=== PATIENT | male | born 1940 | race Caucasian/White ===

== ENCOUNTER 2024-07-23 10:50 | Outpatient (CLI) | payer MEDICARE, SELFPAY ==
[2024-07-23 12:14] LABS: Potassium 5.1 mmol/L (3.4-5.0)
== END 2024-07-23 10:51 | disposition home or self-care (01) ==
PROVIDERS: PCP Internal Medicine; Visit Provider Internal Medicine
DX: E87.5 Hyperkalemia (principal)
CPT/HCPCS: 36415; 84132

== ENCOUNTER 2024-09-19 13:28 | Outpatient (CLI) | payer MEDICARE, SELFPAY ==
--- NOTE | ~2024-09-19 | XR_ITS ---
AP and lateral views of the left hip Clinical history: Pain Findings: No acute fracture or dislocation is seen. Osseous alignment is anatomic. Left hip joint is intact. Soft tissues are unremarkable. Impression: No significant abnormality is seen. Reviewed, dictated and finalized at location M. CARE AIDE TEACHER Impression: No significant abnormality is seen.
--- NOTE | ~2024-09-19 | XR_ITS ---
HISTORY: UNSPECIFIED FALL X YESTERDAY , PAIN COMPARISON: None TECHNIQUE: 2 views of the right elbow were performed. FINDINGS: No acute fracture is identified. No elevation of the anterior or posterior fat pads are identified to suggest a supracondylar fracture . Overlying soft tissues are unremarkable. Bone mineralization is age-appropriate. IMPRESSION: No acute fracture or dislocation, as detailed above. Reviewed, dictated and finalized at location A. UCE FIELD MERCHANDISER
--- NOTE | ~2024-09-19 | XR_ITS ---
HISTORY: UNSPECIFIED FALL YESTERDAY PAIN COMPARISON: None TECHNIQUE: 3 views of the right shoulder were performed FINDINGS: No acute fracture. The glenohumeral and acromioclavicular joint space is maintained The visualized portion of the adjacent right lung is clear. The humeral head is well seated within the glenoid fossa. IMPRESSION: No acute fracture or anterior dislocation. Reviewed, dictated and finalized at location A. INSPECTOR
--- OUTSIDE RECORDS SUMMARY | 2024-09-19 14:30 | XMS_ITS | Data Portability ---
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 he uses it sparingly finishing the Augmentin his lungs are clear he is feeling better he will see me at his regularly scheduled appointment Not available 01/26/2023 12:53:27 04/25/2023 04/25/2023 Continue current therapy diagnosis discussed he probably is going to be medical management for his back he will call pain management and hopefully they will be amenable to just given him pain medication as opposed to procedural based therapy see me in 4 months Not available 05/02/2023 07:32:44 08/18/2023 08/18/2023 Increase the Cymbalta to 60 mg blood work been ordered other medicines will continue follow-up in 4 months. [email or web address] Not available 08/18/2023 16:44:50 Plan of Treatment Reminders Order Date Submit Date Provider Last Modified By Organization Details Last Modified Time Details Appointments None recorded. Lab CMP, serum or plasma 2022 023 [email or web address] [facility] (Lab), [address] [place], [address], 05/15/202 3 14:24:23 lipid panel, serum [address] (Lab), [address] [place], [address], 3 14:24:23 glycohemogl obin, total, blood 2022 023 [facility] (Lab), [address] [place], [address], 3 15:52:46 CMP, serum or plasma 2023 024 [facility] (Lab), [address] [place], [address], 4 16:34:08 lipid panel, serum 2023 024 [facility] (Lab), [address] [place], [address], 4 16:34:12 CBC w/ auto diff 2023 024 [facility] (Lab), [address] [place], [address], 4 15:52:48 glycohemogl obin, total, blood 2023 024 [facility] (Lab), [address] [place], [address], 4 02:56:28 Referral None recorded. Procedures None recorded. Surgeries None recorded. Imaging None recorded. Medication Orders lisinopril 10 mg tablet [address] [facility], [address] [facility], [place], [address], 4 13:10:16 duloxetine 60 mg capsule,del ayed release [address] [facility], [address] [place] [address], [address], 4 13:10:16 carvedilol 3.125 mg tablet [address] [facility], [address] [place] [address], [address], 4 13:10:16 glipizide 10 mg tablet [address] [facility], [address] [place] [address], [address], 4 13:10:16 Januvia 100 mg tablet [address] [facility], [address] [place] [address], [address], 4 13:10:16 lovastatin 40 mg tablet [address] [facility], [address] [place] [address], [address], 4 13:10:16 metformin 1,000 mg tablet [address] [facility], [address] [place] [address], [address], 4 13:10:16 Patient TargetsNo targets recorded. Patient InstructionsNo instructions recorded. Reason for Referral None Reported. Results Created Date Observation Date Name Description Value Unit Range Abnormal Flag Note LastModifiedBy Organization Detail LastModifiedTime 12/28/1912/27/2022 COMPR EHENS YEYO METAB OLIC PANEL sodium 141 mmol/ L 137-14 5 Not Available [facility] (Lab) [address] [place], [address], 12/27/2022 14:01:05 12/28/19 23 12/27/2022 COMPR EHENS YEYO METAB OLIC PANEL potassium 5.6 mmol/ L 3.5-5. 1 high Not Available [facility] (Lab) [address] [place], [address], 12/27/2022 14:01:05 12/28/19 23 12/27/2022 COMPR EHENS YEYO METAB OLIC PANEL chloride 105 mmol/ L 98-107 Not Available [facility] (Lab) [address] [place], [address], 12/27/2022 14:01:05 12/28/19 23 12/27/2022 COMPR EHENS YEYO METAB OLIC PANEL carbon dioxide 27 mmol/ L 22-30 Not Available [facility] (Lab) [address] [place], [address], 12/27/2022 14:01:05 12/28/19 23 12/27/2022 COMPR EHENS YEYO METAB OLIC PANEL anion gap 14.6 mmol/ L 14-22 Not Available [facility] (Lab) [address] [place], [address], 12/27/2022 14:01:05 12/28/19 23 12/27/2022 COMPR EHENS YEYO METAB OLIC PANEL glucose 67 mg/dL 70-99 low Not Available [facility] (Lab) [address] [place], [address], 12/27/2022 14:01:05 12/28/19 23 12/27/2022 COMPR EHENS YEYO METAB OLIC PANEL BUN 30 mg/dL 8-19 high Not Available [facility] (Lab) [address] [place], [address], 12/27/2022 14:01:05 12/28/19 23 12/27/2022 COMPR EHENS YEYO METAB OLIC PANEL creatinine 1.73 mg/dL 0.66-1 .25 high Not Available [facility] (Lab) [address] [place], [address], 12/27/2022 14:01:05 12/28/19 23 12/27/2022 COMPR EHENS YEYO METAB OLIC PANEL GFR 38 Refer ence Range : [place] ge GFR Healt hy Adult : >60 mL/mi n/1.7 3 m2 Chron ic Kidne y Disea se: 15-60 mL/mi n/1.7 3 m2 Kidne y Failu re: <15/m L/min /1.73 m2 www.n iddk. nih.g ov The MDRD study equat ion has not been valid ated in child federico <18 years of age; pregn ant women ; the elder ly >85 years of age; or in some racia l or ethni c subgr oups, such as ky nics. Outsi de the valid ated manuel eters , estim ated GFR is less accur ate, requi ring clini joann judgm ent on a case- by-ca se basis . Clini joann inter preta tion for other races and ages must be made by the clini gentry. The MDRD study equat ion has not been valid ated for the evalu ation of serum creat inine relat ed to nutri romeo l statu s or medic ation usage . For perso ns <18 years of age, a pedia tric GFR calcu lator is avail able on the [facility] websi te: https ://parisa w.[email or web address] guillaume.o rg/pr ofess ional s/kdo qi/gf r_cal culat or Not Available [facility] (Lab) [address] [place], [address], 12/27/2022 14:01:05 12/28/19 23 12/27/2022 COMPR EHENS YEYO METAB OLIC PANEL alkaline phosphatase 83 U/L 38-126 Not Available [facility] (Lab) [address] [place], [address], 12/27/2022 14:01:05 12/28/19 23 12/27/2022 COMPR EHENS YEYO METAB OLIC PANEL alanine aminotransfe rase 16 U/L 0-50 Not Available [facility] (Lab) [address] [place], [address], 12/27/2022 14:01:05 12/28/19 23 12/27/2022 COMPR EHENS YEYO METAB OLIC PANEL aspartate aminotransfe rase 19 U/L 15-46 Not Available [facility] (Lab) [address] [place], [address], 12/27/2022 14:01:05 12/28/19 23 12/27/2022 COMPR EHENS YEYO METAB OLIC PANEL bilirubin, total 0.40 mg/dL 0.20-1 .30 Not Available [facility] (Lab) [address] [place], [address], 12/27/2022 14:01:05 12/28/19 23 12/27/2022 COMPR EHENS YEYO METAB OLIC PANEL calcium 10.8 mg/dL 8.4-10 .2 high Not Available [facility] (Lab) [address] [place], [address], 12/27/2022 14:01:05 12/28/19 23 12/27/2022 COMPR EHENS YEYO METAB OLIC PANEL total protein 6.7 g/dL 6.3-8. 2 Not Available [facility] (Lab) [address] [place], [address], 12/27/2022 14:01:05 12/28/19 23 12/27/2022 COMPR EHENS YEYO METAB OLIC PANEL albumin 3.9 g/dL 3.0-4. 4 Not Available [facility] (Lab) [address] [place], [address], 12/27/2022 14:01:05 12/28/19 23 12/27/2022 COMPR EHENS YEYO METAB OLIC PANEL globulin 2.8 g/dL 2.6-4. 2 Not Available [facility] (Lab) [address] [place], [address], 12/27/2022 14:01:05 12/28/1912/27/2022 COMPR EHENS YEYO METAB OLIC PANEL A/G ratio 1.4 ratio 1.0-2. 0 Not Available [facility] (Lab) [address] [place], [address], 12/27/2022 14:01:05 12/28/1912/27/2022 LIPID PANEL cholesterol 182 mg/dL 140-19 9 NIH REJI NSUS RECOM MENDA TION FOR BETZAIDA STERO L: ADULT CHILD LOW RISK: <200 <170 BORDE RLINE : <200- 239 ----- HIGH RISK: >240 >200 Not Available [facility] (Lab) [address] [place], [address], 12/27/2022 14:01:12/28/1912/27/2022 LIPID PANEL triglyceride s 279 mg/dL 0-150 high NIH REJI NSUS REPOR T RECOM MENDA TION FOR TRIGL YCERI MARKUS: ADULT CHILD LOW RISK: <150 ----- BODER LINE: 150-1 99 ----- HIGH RISK: >200 ----- Not Available [facility] (Lab) [address] [place], [address], 12/27/2022 14:01:12/28/1912/27/2022 LIPID PANEL HDL cholesterol 36 mg/dL 40- low Not Available [facility] (Lab) [address] [place], [address], 12/27/2022 14:01:12/28/1912/27/2022 LIPID PANEL LDL cholesterol, calculated 90 mg/dL 0-130 NIH REJI NSUS REPOR T RECOM MENDA TIONS FOR LDL: ADULT CHILD LOW RISK <130 <110 (OPTI MAL LDL) <100 ----- BORDE RLINE : 130-1 59 ----- HIGH RISK: >160 >130 A TRIGL YCERI DE RESUL T >400 INVAL IDATE S THE CALCU LATIO N FOR LDL FRACT IONAT ION - THE LDL RESUL T WILL NOT BE REPOR ESTEE. Not Available [facility] (Lab) [address] [place], [address], 12/27/2022 14:01:10 12/28/19 23 12/27/2022 HEMOG LOBIN A1C HA1C 7.4 % 4.0-6. 0 high Diabe severo Scree shivam Crite jarad: <5.7% Consi stent with absen ce of diabe severo 5.7-6 .4% Consi stent with incre ased risk for diabe severo (pred iabet es) >OR=6 .5% Consi stent with diabe severo REFER ENCE: Diabe severo Care 2016, 39(Johnson ppl.1 ):s13 -s22 Not Available [facility] (Lab) [address] [place], [address], 12/27/2022 15:52:46 08/18/19 24 08/18/2023 CBC/C OMPLE TE BLD COUNT W/DIF F white blood cells 10.1 x10'3 /uL 4.2-10 .8 Not Available [facility] (Lab) [address] [place], [address], 08/18/2023 15:52:48 08/18/19 24 08/18/2023 CBC/C OMPLE TE BLD COUNT W/DIF F red blood cells 4.31 x10'6 /uL 4.10-5 .80 Not Available [facility] (Lab) [address] [place], [address], 08/18/2023 15:52:48 08/18/19 24 08/18/2023 CBC/C OMPLE TE BLD COUNT W/DIF F hemoglobin 12.4 g/dL 13.2-1 7.0 low Not Available [facility] (Lab) [address] [place], [address], 08/18/2023 15:52:48 08/18/19 24 08/18/2023 CBC/C OMPLE TE BLD COUNT W/DIF F hematocrit 39.0 % 39.3-5 0.0 low Not Available [facility] (Lab) [address] [place], [address], 08/18/2023 15:52:48 08/18/19 24 08/18/2023 CBC/C OMPLE TE BLD COUNT W/DIF F mean red cell volume 90.5 fL 80.0-9 7.0 Not Available [facility] (Lab) [address] [place], [address], 08/18/2023 15:52:48 08/18/19 24 08/18/2023 CBC/C OMPLE TE BLD COUNT W/DIF F mean red cell hemoglobin 28.8 pg 27.0-3 3.0 Not Available [facility] (Lab) [address] [place], [address], 08/18/2023 15:52:48 08/18/19 24 08/18/2023 CBC/C OMPLE TE BLD COUNT W/DIF F mean RBC HGB concentratio n 31.8 g/dL 31.0-3 6.0 Not Available [facility] (Lab) [address] [place], [address], 08/18/2023 15:52:48 08/18/19 24 08/18/2023 CBC/C OMPLE TE BLD COUNT W/DIF F red cell distribution width 13.5 % 11.8-1 5.5 Not Available [facility] (Lab) [address] [place], [address], 08/18/2023 15:52:48 08/18/19 24 08/18/2023 CBC/C OMPLE TE BLD COUNT W/DIF F platelets 260 x10'3 /uL 150-40 0 Not Available [facility] (Lab) [address] [place], [address], 08/18/2023 15:52:48 08/18/19 24 08/18/2023 CBC/C OMPLE TE BLD COUNT W/DIF F mean platelet volume 12.4 fL 9.0-12 .4 Not Available [facility] (Lab) [address] [facility] [place], [address], 08/18/2023 15:52:48 08/18/19 24 08/18/2023 CBC/C OMPLE TE BLD COUNT W/DIF F neutrophils 69.5 % 39.0-7 2.0 Not Available [facility] (Lab) [address] [facility] [place], [address], 08/18/2023 15:52:48 08/18/19 24 08/18/2023 CBC/C OMPLE TE BLD COUNT W/DIF F lymphocytes 20.3 % 16.0-4 7.0 Not Available [facility] (Lab) [address] [facility] [place], [address], 08/18/2023 15:52:48 08/18/19 24 08/18/2023 CBC/C OMPLE TE BLD COUNT W/DIF F monocytes 6.8 % 5.0-12 .0 Not Available [facility] (Lab) [address] [place], [address], 08/18/2023 15:52:48 08/18/19 24 08/18/2023 CBC/C OMPLE TE BLD COUNT W/DIF F eosinophils 2.2 % 1.0-7. 0 Not Available [facility] (Lab) [address] [place], [address], 08/18/2023 15:52:48 08/18/19 24 08/18/2023 CBC/C OMPLE TE BLD COUNT W/DIF F basophils 0.8 % 0.0-2. 0 Not Available [facility] (Lab) [address] [place], [address], 08/18/2023 15:52:48 08/18/19 24 08/18/2023 CBC/C OMPLE TE BLD COUNT W/DIF F immature granulocytes 0.4 % 0.00-0 .50 Not Available [facility] (Lab) [address] [place], [address], 08/18/2023 15:52:48 08/18/19 24 08/18/2023 CBC/C OMPLE TE BLD COUNT W/DIF F neutrophils, absolute count 7.01 x10'3 /uL 1.5-8. 0 Not Available [facility] (Lab) [address] [place], [address], 08/18/2023 15:52:48 08/18/19 24 08/18/2023 CBC/C OMPLE TE BLD COUNT W/DIF F lymphocytes, absolute count 2.05 x10'3 /uL 1.07-3 .43 Not Available [facility] (Lab) [address] [place], [address], 08/18/2023 15:52:48 08/18/19 24 08/18/2023 CBC/C OMPLE TE BLD COUNT W/DIF F monocytes, absolute count 0.69 x10'3 /uL 0.29-0 .99 Not Available [facility] (Lab) [address] [place], [address], 08/18/2023 15:52:48 08/18/19 24 08/18/2023 CBC/C OMPLE TE BLD COUNT W/DIF F eosinophils, absolute count 0.22 x10'3 /uL 0.02-0 .53 Not Available [facility] (Lab) [address] [place], [address], 08/18/2023 15:52:48 08/18/19 24 08/18/2023 CBC/C OMPLE TE BLD COUNT W/DIF F basophils, absolute count 0.08 x10'3 /uL 0.01-0 .08 Not Available [facility] (Lab) [address] [place], [address], 08/18/2023 15:52:48 08/18/19 24 08/18/2023 CBC/C OMPLE TE BLD COUNT W/DIF F immature granulocytes ,absolute 0.04 x10'3 /uL 0.00-0 .05 Not Available [facility] (Lab) [address] [place], [address], 08/18/2023 15:52:48 08/18/19 24 08/18/2023 CBC/C OMPLE TE BLD COUNT W/DIF F nucleated red blood cells 0.0 % -0 Not Available [facility] (Lab) [address] [place], [address], 08/18/2023 15:52:48 08/18/19 24 08/18/2023 CBC/C OMPLE TE BLD COUNT W/DIF F NRBC# 0.00 x10'3 /uL Not Available [facility] (Lab) [address] [place], [address], 08/18/2023 15:52:48 08/18/19 24 08/18/2023 COMPR EHENS YEYO METAB OLIC PANEL sodium 140 mmol/ L 137-14 5 Not Available [facility] (Lab) [address] [place], [address], 08/18/2023 16:34:08 08/18/19 24 08/18/2023 COMPR EHENS YEYO METAB OLIC PANEL potassium 5.5 mmol/ L 3.5-5. 1 high Not Available [facility] (Lab) [address] [place], [address], 08/18/2023 16:34:08 08/18/19 24 08/18/2023 COMPR EHENS YEYO METAB OLIC PANEL chloride 103 mmol/ L 98-107 Not Available [facility] (Lab) [address] [place], [address], 08/18/2023 16:34:08 08/18/19 24 08/18/2023 COMPR EHENS YEYO METAB OLIC PANEL carbon dioxide 29 mmol/ L 22-30 Not Available [facility] (Lab) [address] [place], [address], 08/18/2023 16:34:08 08/18/19 24 08/18/2023 COMPR EHENS YEYO METAB OLIC PANEL anion gap 13.5 mmol/ L 14-22 low Not Available [facility] (Lab) [address] [place], [address], 08/18/2023 16:34:08 08/18/19 24 08/18/2023 COMPR EHENS YEYO METAB OLIC PANEL glucose 74 mg/dL 70-99 Not Available [facility] (Lab) [address] [place], [address], 08/18/2023 16:34:08 08/18/19 24 08/18/2023 COMPR EHENS YEYO METAB OLIC PANEL BUN 30 mg/dL 8-19 high Not Available [facility] (Lab) [address] [place], [address], 08/18/2023 16:34:08 08/18/19 24 08/18/2023 COMPR EHENS YEYO METAB OLIC PANEL creatinine 1.65 mg/dL 0.66-1 .25 high Not Available [facility] (Lab) [address] [place], [address], 08/18/2023 16:34:08 08/18/19 24 08/18/2023 COMPR EHENS YEYO METAB OLIC PANEL GFR 40 Refer ence Range : [place] ge GFR Healt hy Adult : >60 mL/mi n/1.7 3 m2 Chron ic Kidne y Disea se: 15-60 mL/mi n/1.7 3 m2 Kidne y Failu re: <15/m L/min /1.73 m2 www.n iddk. nih.g ov The MDRD study equat ion has not been valid ated in child federico <18 years of age; pregn ant women ; the elder ly >85 years of age; or in some racia l or ethni c subgr oups, such as Hispa nics. Outsi de the valid ated manuel eters , estim ated GFR is less accur ate, requi ring clini joann judgm ent on a case- by-ca se basis . Clini joann inter preta tion for other races and ages must be made by the clini gentry. The MDRD study equat ion has not been valid ated for the evalu ation of serum creat inine relat ed to nutri romeo l statu s or medic ation usage . For perso ns <18 years of age, a pedia tric GFR calcu lator is avail able on the [facility] websi te: https ://parisa [email or web address] guillaume.o rg/pr ofess ional s/kdo qi/gf r_cal culat or Not Available [facility] (Lab) [address] [place], [address], 08/18/2023 16:34:08 08/18/19 24 08/18/2023 COMPR EHENS YEYO METAB OLIC PANEL alkaline phosphatase 97 U/L 38-126 Not Available [facility] (Lab) [address] [place], [address], 08/18/2023 16:34:08 08/18/19 24 08/18/2023 COMPR EHENS YEYO METAB OLIC PANEL alanine aminotransfe rase 25 U/L 0-50 Not Available [facility] (Lab) [address] [place], [address], 08/18/2023 16:34:08 08/18/19 24 08/18/2023 COMPR EHENS YEYO METAB OLIC PANEL aspartate aminotransfe rase 25 U/L 15-46 Not Available [facility] (Lab) [address] [place], [address], 08/18/2023 16:34:08 08/18/19 24 08/18/2023 COMPR EHENS YEYO METAB OLIC PANEL bilirubin, total 0.40 mg/dL 0.20-1 .30 Not Available [facility] (Lab) [address] [place], [address], 08/18/2023 16:34:08 08/18/19 24 08/18/2023 COMPR EHENS YEYO METAB OLIC PANEL calcium 11.1 mg/dL 8.4-10 .2 high Not Available [facility] (Lab) [address] [place], [address], 08/18/2023 16:34:08 08/18/19 24 08/18/2023 COMPR EHENS YEYO METAB OLIC PANEL total protein 7.0 g/dL 6.3-8. 2 Not Available [facility] (Lab) [address] [place], [address], 08/18/2023 16:34:08 08/18/19 24 08/18/2023 COMPR EHENS YEYO METAB OLIC PANEL albumin 4.1 g/dL 3.0-4. 4 Not Available [facility] (Lab) [address] [place], [address], 08/18/2023 16:34:08 08/18/19 24 08/18/2023 COMPR EHENS YEYO METAB OLIC PANEL globulin 2.9 g/dL 2.6-4. 2 Not Available [facility] (Lab) [address] [place], [address], 08/18/2023 16:34:08 08/18/19 24 08/18/2023 COMPR EHENS YEYO METAB OLIC PANEL A/G ratio 1.4 ratio 1.0-2. 0 Not Available [facility] (Lab) [address] [place], [address], 08/18/2023 16:34:08 08/18/19 24 08/18/2023 LIPID PANEL cholesterol 256 mg/dL 140-19 9 high NIH REJI NSUS RECOM MENDA TION FOR BETZAIDA STERO L: ADULT CHILD LOW RISK: <200 <170 BORDE RLINE : <200- 239 ----- HIGH RISK: >240 >200 Not Available [facility] (Lab) [address] [place], [address], 08/18/2023 16:34:11 08/18/19 24 08/18/2023 LIPID PANEL triglyceride s 421 mg/dL 0-150 high NIH REJI NSUS REPOR T RECOM MENDA TION FOR TRIGL YCERI MARKUS: ADULT CHILD LOW RISK: <150 ----- BODER LINE: 150-1 99 ----- HIGH RISK: >200 ----- Not Available [facility] (Lab) [address] [place], [address], 08/18/2023 16:34:11 08/18/19 24 08/18/2023 LIPID PANEL HDL cholesterol 35 mg/dL 40- low Not Available [facility] (Lab) [address] [place], [address], 08/18/2023 16:34:11 08/18/19 24 08/19/2023 HEMOG LOBIN A1C HA1C 7.7 % 4.0-6. 0 high Diabe severo Scree shivma Crite jarad: <5.7% Consi stent with absen ce of diabe severo 5.7-6 .4% Consi stent with incre ased risk for diabe severo (pred iabet es) >OR=6 .5% Consi stent with diabe severo REFER ENCE: Diabe severo Care 2016, 39(Johnson ppl.1 ):s13 -s22 Not Available [facility] (Lab) [address] [place], [address], 08/19/2023 02:56:28 08/24/19 24 08/24/2023 PARAT HY.HO RM(PT H)INT ACT-W /O CA intact parathyroid hormone 141.9 pg/mL 24.0-7 8.0 high Pleas e note new refer ence range effec tive 09/10 . Not Available [facility] (Lab) [address] [place], [address], 08/24/2023 16:30:52 08/24/19 24 08/25/2023 IMMUN OFIXA TION, SERUM immunofixati on result, serum Commen t No monoc lonal ity detec estee. Not Available [facility] (Lab) [address] [place], [address], 08/25/2023 16:12:48 08/24/19 24 08/25/2023 IMMUN OFIXA TION, SERUM immunoglobul in g, qn, serum 866 mg/dL 603-16 13 Not Available [facility] (Lab) [address] [place], [address], 08/25/2023 16:12:48 08/24/19 24 08/25/2023 IMMUN OFIXA TION, SERUM immunoglobul in M, qn, serum 41 mg/dL 15-143 [place]fo [place]med at: [place] [address] Lab Direc tor: Marco Antonio loya PhD, Phone : [phone] Not Available [facility] (Lab) [address] [place], [address], 08/25/2023 16:12:48 08/24/19 24 08/25/2023 IMMUN OFIXA TION, SERUM immunoglobul in A, qn, serum 168 mg/dL 61-437 Not Available [facility] (Lab) [address] [place], [address], 08/25/2023 16:12:48 08/24/19 24 08/26/2023 IMMUN OFIXA TION, URINE immunofixati on, urine COMMEN T No monoc lonal ity detec estee. Perfo rmed at: - [facility] [address] [place] [address], [place] [address] Lab Direc tor: Marco Antonio loya PhD, Phone : [phone] Not Available [facility] (Lab) [address] [place], [address], 08/26/2023 12:12:24 08/24/19 24 08/26/2023 PROT. FRANK CARLINRAND OM UR protein,tota l,urine 27.4 mg/dL not estab. Not Available [facility] (Lab) [address] [place], [address], 08/26/2023 12:12:27 08/24/19 24 08/26/2023 PROT. FRANK CARLINRAND OM UR albumin, U 39.8 % Not Available [facility] (Lab) [address] [place], [address], 08/26/2023 12:12:27 08/24/19 24 08/26/2023 PROT. FRANK CARLINRAND OM UR ogytd-2-cife ulin, U 1.9 % Not Available [facility] (Lab) [address] [place], [address], 08/26/2023 12:12:27 08/24/19 24 08/26/2023 PROT. FRANK CARLIN ,RAND OM UR prrmw-7-sxvx ulin, U 16.7 % Not Available [facility] (Lab) [address] [place], [address], 08/26/2023 12:12:27 08/24/19 24 08/26/2023 PROT. FRANK CARLINRAND OM UR beta globulin, U 20.2 % Not Available [facility] (Lab) [address] [place], [address], 08/26/2023 12:12:27 08/24/19 24 08/26/2023 PROT. FRANK CARLIN [facility] UR gamma globulin, U 21.4 % Not Available [facility] (Lab) [address] [place], [address], 08/26/2023 12:12:27 08/24/19 24 08/26/2023 [facility] UR M-spike, % Not Observ ed % not observ ed Not Available [facility] (Lab) [address] [place], [address], 08/26/2023 12:12:27 08/24/19 24 08/26/2023 [facility] UR please note: Milad Everett Prote in [facility] scan will follo w via compu ter, mail, or couri mariaelena chatterjee. Not Available [facility] (Lab) [address] [place], [address], 08/26/2023 12:12:27 08/24/19 24 08/26/2023 PROT. FRANK [facility] UR pdf . Perfo rmed at: [place] [id number] Lab Direc tor: Marco Antonio loya PhD, Phone : [phone] Not Available [facility] (Lab) [address] [place], [address], 08/26/2023 12:12:27 08/24/19 24 09/01/2023 PROTE IN ELECT RO.,S protein, total 6.5 g/dL 6.0-8. 5 Not Available [facility] (Lab) [address] [place], [address], 09/01/2023 15:10:03 08/24/19 24 09/01/2023 PROTE IN ELECT RO.,S albumin 3.4 g/dL 2.9-4. 4 Not Available [facility] (Lab) [address] [place], [address], 09/01/2023 15:10:03 08/24/19 24 09/01/2023 PROTE IN ELECT RO.,S bjkyj-6-qpci ulin 0.3 g/dL 0.0-0. 4 Not Available [facility] (Lab) [address] [place], [address], 09/01/2023 15:10:03 08/24/19 24 09/01/2023 PROTE IN ELECT RO.,S weumh-3-eiqn ulin 0.9 g/dL 0.4-1. 0 Not Available [facility] (Lab) [address] [place], [address], 09/01/2023 15:10:03 08/24/19 24 09/01/2023 PROTE IN ELECT RO.,S beta globulin 1.1 g/dL 0.7-1. 3 Not Available [facility] (Lab) [address] [place], [address], 09/01/2023 15:10:03 08/24/19 24 09/01/2023 PROTE IN ELECT RO.,S gamma globulin 0.9 g/dL 0.4-1. 8 Not Available [facility] (Lab) [address] [place], [address], 09/01/2023 15:10:03 08/24/19 24 09/01/2023 PROTE IN ELECT RO.,S M-spike Not Observ ed g/dL not observ ed Not Available [facility] (Lab) [address] [place], [address], 09/01/2023 15:10:03 08/24/19 24 09/01/2023 PROTE IN ELECT RO.,S globulin, total 3.1 g/dL 2.2-3. 9 Not Available [facility] (Lab) [address] [place], [address], 09/01/2023 15:10:03 08/24/19 24 09/01/2023 PROTE IN ELECT RO.,S A/G ratio 1.1 0.7-1. 7 Not Available [facility] (Lab) [address] [place], [address], 09/01/2023 15:10:03 08/24/19 24 09/01/2023 PROTE IN ELECT RO.,S please note: Commen t . [facility] follo w via compu ter, mail, or couri er rosendo chatterjee. Not Available [facility] (Lab) [address] [place], [address], 09/01/2023 15:10:03 08/24/19 24 09/01/2023 PROTE IN ELECT RO.,S pdf . Perfo rmed at: [place] [address] 1267 Lab Direc tor: Marco Antonio loya PhD, Phone : [phone] Not Available [facility] (Lab) [address] [place], [address], 09/01/2023 15:10:03 08/26/19 24 08/26/2023 CALCI UM 24 HR URINE ur calcm 12.6 mg/dL REFER ENCE RANGE NOT ESTAB LISHE D FOR RANDO M URINE CALCI UM Not Available [facility] (Lab) [address] [place], [address], 08/26/2023 15:13:47 08/26/19 24 08/26/2023 CALCI UM 24 HR URINE calc 24H 189 mg/24 HR 100-30 0 Not Available [facility] (Lab) [address] [place], [address], 08/26/2023 15:13:47 08/26/19 24 08/26/2023 CALCI UM 24 HR URINE tot vol 1500 mL 600-20 00 Not Available [facility] (Lab) [address] [place], [address], 08/26/2023 15:13:47 08/31/19 24 08/31/2023 IONIZ ED CALCI UM ionized calcium 5.6 mg/dL 4.5-5. 3 high Not Available [facility] (Lab) [address] [place], [address], 08/31/2023 10:55:56 09/12/19 24 09/12/2023 NM, parat hyroi d scan [facility] [address] [facility] [place] [address] [phone] Patien t Name: MARLO LEMOS Access ion #: [id number] Sex: M : 1939 7 Dictat ed By: Rosaline Meredith Attend ing Physic lauri: LYNN ARZATE Orderi ng Physic lauri: LYNN ARZATE Exam Date: 2023 08:55 AM Exam Name: NM PARA PLAN THYROI D IMAGIN G Admitt ing Diagno sis(es ): Proced ure: NM PARA PLAN THYROI D IMAGIN G Exam Date: 024 8:55 AM . Clinic al Histor y: Hyperc alcemi a. Compar olamide Study: None. Nuclea r Medici ne Parath yroid Scan. Techni que: Follow ing the intrav enous inject ion of 22 mCi of the Techne tium 99m Sestam ibi, images of the neck were obtain ed in multip le projec tions , immedi ately and after a two hour delay. Findin gs: There is the expect ed physio logic distri bution of radiop harmac eutica l. There is no abnorm al focus of increa sed uptake to sugges t a parath yroid adenom a in the neck. Impres jose angel: No scinti graphi c eviden ce for parath yroid adenom a in the neck. Electr onical ly Signed by: Rosaline Meredith at 2023 11:57: 19 AM Page 1 [facility] (Imaging) [address] [facility], [place], [address], 09/13/2023 09:22:27 04/06/20 24 04/06/2024 MRI, cervi joann spine , w/o contr ast [facility] [address] [facility] [address], [place] [address] Patien t Name: MARLO LEMOS Access ion #: [id number] Sex: M : 1939 2 Dictat ed By: Rigo Toth ms Attend ing Physic lauri: LYNN ARZATE ng Physic lauri: LYNN ARZATE Exam Date: 2023 10:19 AM Exam Name: MRI C SPINE WO Admitt ing Diagno sis(es ): PROCED URE: MRI cervic al spine withou t contra st. INDICA TION: Neck pain COMPAR OLAMIDE: None TECHNI QUE: MRI of the cervic al spine withou t intrav enous contra st utiliz ing multip lanar, multis equenc e techni que. FINDIN GS: The alignm ent of the cervic al spine verteb ral bodies is preser bladimir. The verteb ral body height s are mainta ined. The interv ertebr al disc spaces are mainta ined in height and signal charac terist ics. The bone marrow signal is homoge nous and unrema rkable . There is imping ement of the cervic al spinal cord at C4-C5 by house worker ior disc osteop hyte comple x. The cervic al spinal cord is size normal in signal charac terist ics and calibe r. Engine Dispatcher ior fossa struct ures are unrema rkable . No cerebe llar tonsil lar hernia tion. Parasp inal muscle s are unrema rkable . At the C2-C3 level, there is house worker ior disc osteop hyte comple x withou t signif icant canal stenos is. No signif icant neural forami nal stenos is. At the C3-C4 level, there is house worker ior disc osteop hyte comple x causin g modera te canal stenos is. There is severe bilate ral neural forami nal stenos is. At the C4-C5 level, there is house worker ior disc osteop hyte comple x contri buting to modera te to severe canal stenos is and imping es the cervic al spinal cord. There is severe right and modera te to severe left neural forami nal stenos is. Left facet arthro faye at C4-C5 with facet effusi on. At the C5-C6 level, there is house worker ior disc osteop hyte comple x causin g mild Page 1 [facility] [address] [place] [address] Patien t Name: MARLO LEMOS Access ion #: [id number] Sex: M : 1939 2 Dictat ed By: Rigo Toth ms Attend ing Physic lauri: CANDIS GRIFFIN [facility] Physic lauri: LYNN ARZATE Exam Date: 2023 10:19 AM Exam Name: MRI C SPINE WO Admitt ing Diagno sis(es ): canal stenos is. There is severe bilate ral neural forami nal stenos is. At the C6-C7 level, there is house worker ior disc osteop hyte comple x causin g mild canal stenos is. There is modera te right and severe left neural forami nal stenos is. At the C7-T1 level, there is no eviden ce of centra l spinal canal or neurof oramin al stenos is. Other: None. IMPRES JOSE ANGEL: 1. 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 Bilate ral neural forami nal stenos is at C3-C4 and C4-C5. Electr onical ly Signed by: Rigo Toth ms at 2023 11:12: 29 AM Page 2 [email or web address] [facility] (Imaging) [address] [place], [address], 04/30/2024 12:35:36 Result Notes None recorded. Problems Name Problem SNOMED Code Status Onset Date Resolution Date Notes Provider Name and Address Organization Details Recorded Time Cellulitis of right foot 1262697075416 9105 Active 2021 Not Available [facility] 4 04:20:46 Open wound of right foot 1844211878024 9105 Active 2021 Not Available [facility] 4 04:20:46 Plantar wart of right foot 0772981479554 9101 Active 2021 Not Available [facility] 4 04:20:46 Dehiscence of external surgical incision wound 6347414013929 08 Active 2021 Not Available [facility] 4 04:20:46 Open wound of foot 696034717 Active 2021 Not Available [facility] 4 04:20:46 Chronic back pain 728071231 Active 2021 Not Available [facility] 4 04:20:46 Spinal stenosis of lumbar region 21930395 Active 2021 Not Available [facility] 4 04:20:46 Boil of back 745240137 Active 2021 Not Available [facility] 4 04:20:46 Low back pain 736858061 Active 2021 Not Available [facility] 4 04:20:46 Foreign body of foot 326625032 Active 2021 Not Available [facility] 4 04:20:46 Pain of toe of right foot 2819746291522 01 Active 2021 Not Available [facility] 4 04:20:46 Cellulitis of lower limb 453348724 Active 2021 Not Available [facility] 4 04:20:47 Pain of left knee joint 0169971089931 07 Active 2021 Not Available [facility] 4 04:20:47 Acute upper respirator y infection 26149546 Active 2021 Not Available [facility] 4 04:20:47 Hyperlipid emia 04266148 Active 2017 Not Available [facility] 4 04:20:47 Essential hypertensi on 66171165 Active 2017 Not Available [facility] 4 04:20:47 Dyspnea on exertion 63018244 Active 2021 Not Available [facility] 4 04:20:47 Diabetes mellitus 52756813 Active 2017 Not Available [facility] 4 04:20:47 COVID-19 878936256 Active 2021 Not Available [facility] 4 04:20:47 Fatigue 74701514 Active 2021 Not Available [facility] 4 04:20:47 Skin lesion 34451407 Active 2021 Not Available [facility] 4 04:20:47 Upper respirator y infection 64772132 Active 2022 Not Available [facility] 4 04:20:47 Bronchitis 82051282 Active 2022 Not Available [facility] 4 04:20:47 Hypercalce yesica 01169979 Active 2023 Not Available [facility] 4 04:20:47 Laboratory test result abnormal 379786442 Active 2023 Not Available [facility] 4 04:20:46 Problem Notes None recorded. Procedures Surgical History Date Name Laterality Status Provider Name and Address Organization Details Recorded Time Excisions - Specify completed Not Available [facility] 10/13/2022 04:59:11 Foot Surgery completed Not Available [facility] 10/13/2022 04:59:11 Imaging Results Imaging Date Name Status LastModified by Organiz ation Details LastModified Time 09/12/2023 NM, parathyroid scan completed [facility] (Imaging) [address] [place], [address], 09/13/2023 09:22:27 04/06/2024 MRI, cervical spine, w/o contrast completed [address] (Imaging) [address] [place], [address], 04/30/2024 12:35:36 Procedure Notes None recorded. Medical Equipment None Reported. Allergies No known drug allergies Medications Name Sig Start Date Stop Date Status Note LastModified by Organization Details LastModified Time cyclobenz aprine 10 mg tablet TAKE 1 TABLET BY MOUTH ONCE DAILY active Not Available Not Available No t Available silver sulfadiaz ine 1 % topical cream APPLY A 1/16 INCH (1.5 MM) THICK LAYER TO ENTIRE wound AREA plantar right foot BY TOPICAL ROUTE 2 TIMES PER DAY 07/19 completed Not Available Not Available Not Available azithromy liane 250 mg tablet TAKE 2 TABLETS (500 MG) BY ORAL ROUTE ONCE DAILY FOR 1 DAY THEN 1 TABLET (250 MG) BY ORAL ROUTE ONCE DAILY FOR 4 DAYS 01/26 completed Not Available Not Available Not Available hydrocodo ne 5 mg-acetam inophen 325 mg tablet TAKE 1 TABLET BY MOUTH EVERY 6 HOURS NEEDED FOR PAIN (SEVERE PAIN SCALE 7-10) DO NOT EXCEED 4,000 MG OD ACETAMIN OPHEN IN A 24 HOUR PERIOD 07/19 completed Not Available Not Available Not Available glipizide 10 mg tablet Take 1 tablet by mouth twice daily active Not Available Not Available No t Available lovastati n 40 mg tablet TAKE 1 TABLET BY MOUTH ONCE DAILY active Not Available Not Available No t Available acetamino phen 300 mg-codein e 30 mg tablet TAKE 1 TABLET BY MOUTH THREE TIMES DAILY NEEDED FOR PAIN active Not Available Not Available No t Available valacyclo vir 500 mg tablet TAKE 1 CAPLET BY MOUTH TWICE DAILY FOR 7 DAYS 07/18 completed Not Available Not Available Not Available tramadol 50 mg tablet TAKE 1 TO 2 TABLETS BY MOUTH TWICE DAILY NEEDED 08/30 completed Not Available Not Available Not Available sildenafi l 100 mg tablet TAKE ONE TABLET BY MOUTH 30 MINUTES BEFORE INTERCOU RSE active Not Available Not Available No t Available carvedilo l 3.125 mg tablet Take 1 tablet by mouth twice daily 2023 active Not Available Not Available Not Avai lable alprazola m 0.5 mg tablet TAKE 1 TABLET BY MOUTH 1 HOUR PRIOR TO PROCEDUR E.THEN TAKE 1 TABLET 30 MIN PRIOR TO PROCEDUR E.BRING 3RD TABLET TO APPOINTM ENT FOR PROCEDUR E. 01/26 completed Not Available Not Available Not Available OneTouch Ultra Test strips USE 1 STRIP TO CHECK GLUCOSE TWICE DAILY active Not Available Not Available No t Available benzonata te 100 mg capsule TAKE 1 CAPSULE BY MOUTH EVERY 8 HOURS NEEDED FOR COUGH AND CONGESTI ON 01/26 completed Not Available Not Available Not Available cephalexi n 500 mg capsule Take 1 capsule 3 times a day by oral route for 10 days. active Not Available Not Available No t Available metformin 1,000 mg tablet Take 1 tablet by mouth twice daily active Not Available Not Available No t Available lisinopri l 10 mg tablet TAKE 1 TABLET BY MOUTH TWICE DAILY active Not Available Not Available No t Available lidocaine 5 % topical patch APPLY 1 PATCH TOPICALL Y ONCE DAILY (MAY WEAR UP TO 12 HOURS) 06/12 completed Not Available Not Available Not Available Aspir-81 mg tablet,de layed release Take 1 tablet every day by oral route. 11/06 completed Not Available Not Available Not Available levofloxa liane 500 mg tablet Take 1 tablet every 24 hours by oral route as directed for 10 days. active Not Available Not Available No t Available lovastati n 20 mg tablet Take 1 tablet every day by oral route. 10/05 completed Not Available Not Available Not Available amoxicill in 875 mg-potass ium clavulana te 125 mg tablet TAKE 1 TABLET BY MOUTH EVERY 12 HOURS FOR 10 DAYS 08/18 completed Not Available Not Available Not Available amoxicill in 500 mg-potass ium clavulana te 125 mg tablet TAKE 1 TABLET BY MOUTH TWICE DAILY FOR 14 DAYS 07/19 completed Not Available Not Available Not Available magnesium 250 mg (as magnesium oxide) tablet Take 1 tablet every day by oral route. 11/06 completed Not Available Not Available Not Available Low Dose Aspirin 81 mg tablet,de layed release Take 1 tablet every day by oral route. 2021 active Not Available Not Available Not Avai lable Pneumovax -23 25 mcg/0.5 mL injection syringe 05/22 completed Not Available Not Available Not Available duloxetin e 30 mg capsule,d elayed release TAKE 1 CAPSULE BY MOUTH ONCE DAILY active Not Available Not Available No t Available duloxetin e 60 mg capsule,d elayed release TAKE 1 CAPSULE BY MOUTH ONCE DAILY active Not Available Not Available No t Available Co Q-10 200 mg capsule Take 2 capsules every day by oral route. 11/06 completed Not Available Not Available Not Available magnesium 2021 active Not Available Not Available Not Avai lable Co Q-10 2021 active Not Available Not Available Not Avai lable OneTouch Ultra2 Meter kit 11/06 completed Not Available Not Available Not Available Januvia 100 mg tablet Take 1 tablet by mouth once daily 2023 active Not Available Not Available Not Avai lable Prevnar 13 (PF) 0.5 mL intramusc ular syringe active Not Available Not Available Not Available Fluzone High-Dose (PF) 180 mcg/0.5 mL intramusc ular syringe 05/22 completed Not Available Not Available Not Available OneTouch Ultra Blue Test Strip USE 1 STRIP TO CHECK GLUCOSE TWICE DAILY 11/06 completed Not Available Not Available Not Available Fluzone High-Dose 4630-4600 (PF) 180 mcg/0.5 mL intramusc ular syringe 05/22 completed Not Available Not Available Not Available OneTouch Ultra2 Meter active Not Available Not Available Not Available OneTouch Delica Plus Lancet 33 gauge USE 1 LANCET TO CHECK GLUCOSE ONCE DAILY active Not Available Not Available No t Available Fluzone High-Dose (PF) 180 mcg/0.5 mL intramusc ular syringe active Not Available Not Available Not Available tramadol 100 mg tablet TAKE 1 TABLET BY MOUTH TWICE DAILY NEEDED active Not Available Not Available No t Available Fluzone High-Dose Quad (PF) 240 mcg/0.7 mL IM syringe PHARMACI ST ADMINIST ERED IMMUNIZA TION ADMINIST ERED AT TIME OF DISPENSI NG active Not Available Not Available No t Available BinaxNOW COVID-19 Ag Self Test kit Use as Directed on the Package 07/19 completed Not Available Not Available Not Available Paxlovid 300 mg (150 mg x 2)-100 mg tablets in a dose pack TAKE 3 TABLETS TOGETHER (TWO 150 MG NIRMATRE LVIR TABLETS AND ONE 100 MG RITONAVI R TABLET) BY MOUTH TWICE DAILY FOR 5 DAYS. 08/18 completed Not Available Not Available Not Available Paxlovid 150 mg-100 mg tablets in a dose pack (Renal Dose) Take 2 tablets twice a day by oral route for 5 days. 07/19 completed GFR is 35, order to hold choleste rol medicine for 10 days. Not Available Not Available Not Available Vitals Date Recorded Body mass index (BMI) Body height Heart rate Body temperature Body weight Systolic blood pressure Diastolic blood pressure Provider Name and Address Organization Details Last Updated DateTime 3 37.4 kg/m2 172.72 cm 65 /min 97.6 [degF] 723560. 72 g 134 mm[Hg] 72 mm[Hg] Not Available [facility] 3 04:59:39 Date Recorded Body height Body mass index (BMI) Body weight Body temperature Heart rate Systolic blood pressure Diastolic blood pressure Provider Name and Address Organization Details Last Updated DateTime 3 172.72 cm 37.1 kg/m2 430183. 54 g 97.4 [degF] 60 /min 142 mm[Hg] 72 mm[Hg] NOLA Rogers Unfold Er[employer]inda [employer] [facility] 3 11:10:59 Date Recorded Body height Body mass index (BMI) Body weight Body temperature Heart rate Systolic blood pressure Diastolic blood pressure Provider Name and Address Organization Details Last Updated DateTime 3 172.72 cm 35.3 kg/m2 798221. 43 g 97.8 [degF] 83 /min 124 mm[Hg] 72 mm[Hg] NOLA Rogers Unfold Erlinda [employer] [facility] 3 10:27:20 Date Recorded Body height Body mass index (BMI) Body weight Body temperature Heart rate Systolic blood pressure Diastolic blood pressure Provider Name and Address Organization Details Last Updated DateTime 3 172.72 cm 36.9 kg/m2 233284. 95 g 97.2 [degF] 61 /min 138 mm[Hg] 60 mm[Hg] NOLA Rogers [employer] [facility] 3 11:54:05 Date Recorded Body height Body mass index (BMI) Body weight Body temperature Heart rate Systolic blood pressure Diastolic blood pressure Provider Name and Address Organization Details Last Updated DateTime 4 172.72 cm 36.5 kg/m2 048079. 17 g 97.2 [degF] 73 /min 124 mm[Hg] 78 mm[Hg] Kelly Espinoza [place] [facility] [place] [employer] 4 11:43:24 Social History Question Answer Notes LastModified by Organizat ion Details LastModified Time Tobacco Smoking Status Never Smoker Not Available [facility] 10/13/2022 04:55:58 Do You Have An Advance Directive? Yes [id number] [id number] Information not available 10/13/2022 What Is Your Level Of Alcohol Consumption? None MIGRATION.54739 29566 Information not available 10/13/2022 Are You Blind Or Do You Have Difficulty Seeing? No MIGRATION.67262 97849 Information not available 10/13/2022 What Is Your Level Of Caffeine Consumption? Moderate MIGRATION.19889 30949 Information not available 10/13/2022 How Much Tobacco Do You Chew? None MIGRATION.41338 30857 Information not available 10/13/2022 In The 14 Days Before Symptom Onset, Have You Had Close Contact With A Laboratory-confi rmed COVID-19 While That Case Was Ill? No MIGRATION.57932 01715 Information not available 10/13/2022 In The 14 Days Before Symptom Onset, Have You Had Close Contact With A Person Who Is Under Investigation For COVID-19 While That Person Was Ill? No MIGRATION.68254 53532 Information not available 10/13/2022 Are You Deaf Or Do You Have Serious Difficulty Hearing? No MIGRATION.51520 91087 Information not available 10/13/2022 What Type Of Diet Are You Following? REGULAR MIGRATION.98315 75369 Information not available 10/13/2022 Which Illicit Or Recreational Drugs Have You Used? None MIGRATION.27843 51675 Information not available 10/13/2022 Do You Or Have You Ever Used E-cigarettes Or Vape? Never Used Electronic Cigarettes MIGRATION.48905 98657 Information not available 10/13/2022 What Is The Highest Grade Or Level Of School You Have Completed Or The Highest Degree You Have Received? [id number] MIGRATION.13531 64923 Information not available 10/13/2022 What Is Your Occupation? Retired MIGRATION.02829 73518 Information not available 10/13/2022 Have There Been Any Changes To Your Family Or Social Situation? No MIGRATION.65259 24250 Information not available 10/13/2022 What Is The Fluoride Status Of Your Home? Unknown MIGRATION.11825 60803 Information not available 10/13/2022 Are There Any Guns Present In Your Home? Yes MIGRATION.42971 69756 Information not available 10/13/2022 Do You Use Insect Repellent Routinely? No MIGRATION.27829 42367 Information not available 10/13/2022 Where Do You Live? [facility] MIGRATION.56486 73165 Information not available 10/13/2022 Do You Have A Medical Power Of Research Methodologist? Yes MIGRATION.86054 69434 Information not available 10/13/2022 What Was The Date Of Your Most Recent Tobacco Screening? 08/18/2023 Information not available 08/18/2023 Do You Have Any Pets? No MIGRATION.86952 90443 Information not available 10/13/2022 What Is Your Relationship Status? MIGRATION.09500 40602 Information not available 10/13/2022 Do You Use Your Seat Belt Or Car Seat Routinely? Yes MIGRATION.80576 50717 Information not available 10/13/2022 Do You Have Smoke And Carbon Monoxide Detectors In Your Home? Yes MIGRATION.05458 31840 Information not available 10/13/2022 Are You Passively Exposed To Smoke? No MIGRATION.18966 91960 Information not available 10/13/2022 Do You Or Have You Ever Used Smokeless Tobacco? Never Used Smokeless Tobacco MIGRATION.50427 13677 Information not available 10/13/2022 Are There Any Smokers In Your House? No MIGRATION.29575 65851 Information not available 10/13/2022 How Much Tobacco Do You Smoke? No MIGRATION.02444 76621 Information not available 10/13/2022 What Types Of Sporting Activities Do You Participate In? None MIGRATION.33364 49435 Information not available 10/13/2022 Do You Feel Stressed (tense, Restless, Nervous, Or Anxious, Or Unable To Sleep At Night)? [id number] MIGRATION.90532 23257 Information not available 10/13/2022 Do You Use Any Illicit Or Recreational Drugs? No MIGRATION.11625 49197 Information not available 10/13/2022 Do You Use Sunscreen Routinely? No MIGRATION.80400 09672 Information not available 10/13/2022 Has Tobacco Cessation Counseling Been Provided? No MIGRATION.25145 78272 Information not available 10/13/2022 How Many Years Have You Smoked Tobacco? 0 MIGRATION.32770 20891 Information not available 10/13/2022 Have You Recently Traveled Abroad? No MIGRATION.36075 84205 Information not available 10/13/2022 Do You Have Any Dietary Restrictions? No MIGRATION.40157 22029 Information not available 10/13/2022 Do You Or Have You Ever Used Any Other Forms Of Tobacco Or Nicotine? No MIGRATION.70952 39648 Information not available 10/13/2022 Sex: Male Functional Status Question Answer Note LastModified by Organizat ion Details LastModified Time Do you have difficulty walking or climbing stairs? No MIGRATION.0629212 026 Information not available 10/13/2022 Do you have transportation difficulties? No MIGRATION.0517976 026 Information not available 10/13/2022 Are you able to walk? YESWOREST MIGRATION.6601516 026 Information not available 10/13/2022 Do you have difficulty doing errands alone? No MIGRATION.6805814 026 Information not available 10/13/2022 Are you able to care for yourself? Yes MIGRATION.8233655 026 Information not available 10/13/2022 Do you have difficulty dressing or bathing? No MIGRATION.3194546 026 Information not available 10/13/2022 What is your exercise level? Moderate MIGRATION.1116938 026 Information not available 10/13/2022 Mental Status Question Answer Note LastModified by Organizat ion Details LastModified Time Do you have difficulty concentrating, remembering or making decisions? No MIGRATION.[id number] 6 Information not available 10/13/2022 Family History Relationship Description Onset Age of this Age Resolved Age Notes LastModified by Organization Details LastModified Time Mother Pulmonary emphysema MIGRATION.109 [id number] Not available 10/13/2022 04:59:12 Father Leukemia MIGRATION.375 [id number] Not available 10/13/2022 04:59:12 Medical History Condition Response NERVE DISEASE N BLINDNESS N RHEUMATIC FEVER N KIDNEY STONES N BLADDER PROBLEMS N MRSA N OTHER # 1 N POLIO N LUNG DISEASE/DISORDER N RADIATION / CHEMOTHERAPY N COPD N Other # 2 N BLOOD DISEASES N SURGERY N EAR OR HEARING PROBLEMS N MUMPS N BOWEL PROBLEMS N DEPRESSION (INCLUDING POST ) N STROKE/TIA N ULCERS N BENIGN PROSTATIC HYPERPLASIA N MEASLES N MYOCARDIAL INFARCTION N OBESITY N GERD/NAUSEA N ANEURYSM N URINARY/BLADDER/KIDNEY PROBLEMS N CORONARY ARTERY DISEASE (CAD) N ADDICTION CONCERNS N Impotence N ENDOMETRIOSIS N USE OF BLOOD THINNERS Y SKIN PROBLEMS N GASTROINTESTINAL DISORDER N PERIPHERAL VASCULAR DISEASE N MUSCLE,JOINT OR BONE PROBLEMS N GASTROINTESTINAL BLEEDING N BLOOD CLOTS N ASTHMA N CATARACTS N ERECTILE DYSFUNCTION N VARICOSITIES N GI PROBLEMS N Low Testosterone N INFERTILITY N AIDS/HIV N CHEMOTHERAPY / RADIATION N LIVER DISEASE N MALE HYPOGONADISM N HYPERTENSION Y Deficiency N ANXIETY DISORDER N BLOOD TRANSFUSION N ANEMIA/BLOOD DISORDER N CHRONIC EAR INFECTIONS N BRONCHITIS N TUBERCULOSIS N GLAUCOMA N FOOT PROBLEM N DIVERTICULITIS N SLEEP APNEA N CHICKENPOX N INFECTIOUS DISEASE N PROSTATE N HEART ARRHYTHMIA N INSOMNIA N HIGH CHOLESTEROL / HYPERLIPIDEMIA Y EYE PROBLEMS N HYPERTHYROIDISM N NEUROLOGICAL PROBLEMS N EDEMA N CHRONIC PAIN SYNDROME N HYPOTHYROIDISM N CONSTIPATION N CAROTID BLOCKAGE N BACK / NECK PROBLEMS Y HAVE YOU BEEN HOSPITALIZED OR SEEN IN [facility] IN THE PAST YEAR ? N ATHEROSCLEROSIS N BREAST PROBLEMS N DIALYSIS N ECZEMA N OSTEOPOROSIS N ARTHRITIS N APPENDICITIS N DIABETES, TYPE Y BAD TEETH N ENT N HEARTBURN / REFLUX N AUTISM SPECTRUM DISORDER (ASD) N HEPATITIS / LIVER DISEASE N GOUT N SLEEP DISORDER N ALZHEIMER'S DISEASE N Brain Problems N DEMENTIA N HERPES N SEIZURES/EPILEPSY N HEADACHES/MIGRAINES N VASCULAR DISEASE N PACEMAKER N Blood Disorder N DIZZINESS N HEART DISEASE/HEART PROBLEMS N KIDNEY DISEASE N MULTIPLE SCLEROSIS N CANCER: SPECIFY N CARDIAC ARRHYTHMIA N ATRIAL FIBRILLATION N Gall Stones N PULMONARY EMBOLISM N AUTOIMMUNE DISEASE N Immunizations Vaccine Type Date Status Note Provider Nam e and Address Organization Details Recorded Time Influenza, high-dose, quadrivalent, PF 3 completed Not Available [facility] 09/26/2023 04:20:48 RSV, recombinant, protein subunit RSVpreF, adjuvant reconstituted, 0.5 mL, PF 3 completed Not Available [facility] 09/26/2023 04:20:48 COVID-19, mRNA, LNP-S, PF, 100 mcg/0.5mL dose or 50 mcg/0.25mL dose 3 completed Not Available [facility] 09/26/2023 04:20:48 Influenza, high-dose, trivalent, PF 0 completed Not Available [facility] 09/26/2023 04:20:48 Pneumococcal conjugate PCV 13 9 completed Not Available [facility] 09/26/2023 04:20:48 Influenza, high-dose, trivalent, PF 9 completed Not Available [facility] 09/26/2023 04:20:48 Influenza, high-dose, trivalent, PF 8 completed Not Available [facility] 09/26/2023 04:20:48 pneumococcal polysaccharide PPV23 7 completed Not Available [facility] 09/26/2023 04:20:48 COVID-19, mRNA, LNP-S, bivalent, PF, 50 mcg/0.5 mL or 25mcg/0.25 mL dose 2 completed Not Available [facility] 09/26/2023 04:20:48 Influenza, high-dose, quadrivalent, PF 2 completed Not Available [facility] 09/26/2023 04:20:48 COVID-19, mRNA, LNP-S, PF, 100 mcg/0.5mL dose or 50 mcg/0.25mL dose 2 completed Not Available [facility] 09/26/2023 04:20:48 COVID-19, mRNA, LNP-S, PF, 100 mcg/0.5mL dose or 50 mcg/0.25mL dose 1 completed Not Available [facility] 09/26/2023 04:20:48 Influenza, high-dose, quadrivalent, PF 1 completed Not Available [facility] 09/26/2023 04:20:48 COVID-19, mRNA, LNP-S, PF, 100 mcg/0.5mL dose or 50 mcg/0.25mL dose 1 completed Not Available [facility] 09/26/2023 04:20:48 COVID-19, mRNA, LNP-S, PF, 100 mcg/0.5mL dose or 50 mcg/0.25mL dose 1 completed Not Available [facility] 09/26/2023 04:20:48 Past Encounters Encounter ID Performer Location Encounter Start Date Encounter Closed Date Diagnosis/Indication Diagnosis SNOMED-CT Code Diagnosis ICD10 Code Diagnosis Note [id number] [facility] Internal Med [facility] 15 4 [facility], [place] [address] [place] [address] 10/31/2020 00:00:00 10/31/2020 16:51:10 [id number] _ATHENA_M IGRATION_ DEFAULT_1 _1 , 12/04/2020 00:00:00 12/04/2020 11:05:17 [id number] [facility] [place] [address]44 [facility] [address] [address] 01/30/2021 00:00:00 2021 22:04:28 [id number] [facility] [place] [address] [place], [place] [address]., [address] [address] 06/12/2021 00:00:00 06/12/2021 21:21:21 [id number] [facility] Internal Med [facility] [address] [place], [place] [address] [address] [address] 10/09/2021 00:00:00 10/09/2021 21:02:07 [id number] [facility] Internal Med [facility] [address] [place], [place] [address] [address] [address] 11/06/2021 00:00:00 11/06/2021 22:00:48 [id number] [facility] [place] [address] [place] [address] 11/12/2021 00:00:00 11/15/2021 14:17:37 [id number] [facility] Internal Med [facility] [address] [place], [place] [address]., [address] [address] 11/20/2021 00:00:00 12/06/2021 10:23:57 [id number] [facility] General Surgery [address] [place], [place] [address]., [address] [address] 12/15/2021 00:00:00 12/15/2021 13:45:31 [id number] [facility] Surgery [address] [place], [place] [address]., [address] [address] 12/29/2021 00:00:00 12/29/2021 14:44:26 [id number] [facility] [address] [place], [place] [address]., [address] [address] 01/07/2022 00:00:00 01/07/2022 12:59:36 [id number] [facility] [place] [address] [place] [address] 01/25/2022 00:00:00 02/20/2022 16:00:26 [id number] [facility] [place] [address] [place] [address] 02/19/2022 00:00:00 02/19/2022 17:51:57 [id number] [facility] Internal Med [facility] [address] [place] [address] [place] [address] 04/14/2022 00:00:00 04/14/2022 22:46:41 [id number] [facility] Podiatry [address], [address] [place] [address] 04/15/2022 00:00:00 04/15/2022 14:33:03 [id number] [facility] [address] [address] 04/20/2022 00:00:00 04/20/2022 12:58:14 [id number] [facility] [address] [place] [address] 04/28/2022 00:00:00 04/28/2022 12:04:25 [id number] [facility] [address] [place] [address] 05/05/2022 00:00:00 05/05/2022 13:39:36 [id number] [facility] [address] [place] [address] 05/12/2022 00:00:00 05/12/2022 10:56:25 [id number] [facility] [address] [place] [address] 05/19/2022 00:00:00 05/19/2022 10:57:00 [id number] [facility] [address] [place] [address] 05/26/2022 00:00:00 05/26/2022 11:02:53 [id number] [facility] [address] [place] [address] 06/09/2022 00:00:00 06/09/2022 11:34:27 [id number] [facility] Internal [facility] [address] [place] [address], [address] [address] 06/25/2022 00:00:00 06/26/2022 16:17:36 [id number] [facility] Internal [facility] [address] [facility], [address] [address] 07/19/2022 00:00:00 07/19/2022 23:38:30 [id number] [facility] Internal [facility] [address] [facility], [address] [address] 08/30/2022 00:00:00 08/30/2022 22:32:44 [id number] Yovani Arzate MD [facility] Internal Med [facility] 2043 [facility], [address] [address] 12/27/2022 10:43:59 12/27/2022 13:20:10 Diabetes mellitus 95063397 E11.9 Essential hypertension 33765309 I10 Hyperlipidemia 53402884 E78.5 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 [id number] Yovani Arazte MD [facility] Internal Med [facility] [address] [place] [address] 01/26/2023 10:17:30 01/26/2023 10:53:19 [facility] [id number] Yovani Arzate MD [facility] Internal Med [facility] [address] [place] [address] 04/25/2023 11:11:13 04/25/2023 12:39:08 Essential hypertension 07394425 I10 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 20449382 M48.061 Diabetes mellitus 635598 09 E11.9 [id number] Yovani Arzate MD [facility] Internal Med [facility] [address] [place] [address] 08/18/2023 11:19:13 08/18/2023 12:21:29 Diabetes mellitus 79169070 E11.9 Essential hypertension 62923958 I10 Renewal of prescription 918023576 Z76.0 Hyperlipidemia 94601886 E78.5 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 31660686 M48.061 Health Concerns Section Related Observation LastModified by Organization Detai ls LastModified Time None Recorded Concern Status LastModified by Organization Details LastModified Time None Recorded Advance Directives Directive Y: Payers Encounter Date Sequence Insurance Name Policy Number Policy Zamora Covered Member ID Zamora Member ID Guarantor Name 12/27/2022 1 [facility] (MEDICARE REPLACEMENT/A DVANTAGE - HMO) [id number] Marlo Maldonado [id number] Marlo Maldonado 01/26/2023 1 [facility] (MEDICARE REPLACEMENT/A DVANTAGE - HMO) [id number] Marlo Maldonado [id number] Marlo Maldonado 04/25/2023 1 [facility] (MEDICARE REPLACEMENT/A DVANTAGE - HMO) [id number] Marlo Maldonado [id number] Marlo Maldonado 08/18/2023 1 [facility] (MEDICARE REPLACEMENT/A DVANTAGE - HMO) [id number] Marlo Maldonado [id number] Marlo Maldonado Notes Date Note Type Note Provider Name and Address Organization Details Recorded Time 12/27/2022 text/html Diabetes no polyphagia no polydipsia. Hypertension no headache or dizziness. Hyperlipidemia does try to watch intake of saturated fat. Spinal stenosis seen pain management getting shots. Yovani Arzate MD [address], [place], [address], [employer] 12/27/2022 20:36:26 01/26/2023 text/html Cough congestion antibiotics got worse ER Augmentin feeling better intermittent back pain pain management would like to have some tramadol at home Yovani Arzate MD [address], [place], [address], [employer] 01/26/2023 12:53:54 04/25/2023 text/html Diabetes no polyphagia no polydipsia. Hypertension no headache or dizziness. Hyperlipidemia does try to watch intake of saturated fat. Spinal stenosis seen pain management getting shots not helping them much so he is. Yovani Arzate MD [address], [place], [address], [employer] [facility] [employer] [facility] 05/02/2023 07:33:00 08/18/2023 text/html Diabetes no polyphagia no polydipsia. Hypertension no headache or dizziness. Hyperlipidemia does try to watch intake of saturated fat. Spinal stenosis seen pain management getting shots not helping them much so he is. Yovani Arzate MD [address], [place], [address], [employer] [facility] [employer] [facility] 08/18/2023 16:45:08
--- OUTSIDE RECORDS SUMMARY | 2024-09-19 14:30 | XMS_ITS | Continuity of Care Document ---
Author Organization [facility] Address [address] [place] [address] [address] [place] [address] Phone Care Team Providers Care Electroencephalographic Technician Name Role Phone Isma Marks Unavailable Unavailable Advance Directives Directive Yes / No Effective Date File Name No Information Encounters Encounter Description Practice Location Reason(s) For Visit Diagnoses Date Provider Providers Copied on Encounter [facility], [address], [place], [place], [id number], [place] tel:[phone] [facility] No Information [phone] 1 Selina Ashby. [address] [facility] , [address], [place], [address], [place]. tel:[phone] Family History Family Member Type Diagnosis Age At Onset No Information Payers Payer name Insurance type Covered constitution party ID Authoriza tion(s) No Information Social History Type Description Quantity Date Captured Comments Sex Male Smoking Status No Information Chief Complaint And Reason For Visit No Information Reason For Referral Reason For Referral No Information History Of Present Illness Encounter Date Complaint History Of Prese nt Illness No Information Functional Status Date Functional Assessmen t No Information Instructions Date Instruction Additional Infor mation No Information Assessments Type Assessment Date No Information Patient Care Teams Name Effective Dates (start - stop) Status Members No Information
--- OUTSIDE RECORDS SUMMARY | 2024-09-19 14:30 | XMS_ITS | Referral Summary ---
Author Organization [facility] Medical Office Building [address] Address [address] [place] [address] Care Team Providers Care Neon Installer Name Role Phone Tong Arzate MD Primary Care Provider [phone] Allergies No known active allergies Medications lovastatin (MEVACOR) 20 mg tablet Take 20 mg by mouth nightly. Active lisinopril (PRINIVIL,ZESTR [place]) 10 mg tablet Take 10 mg by mouth daily. Active blood glucose diagnostic (ONETOUCH ULTRA BLUE TEST STRIP) strip Use to check glucose 2x daily 200 each 3 03/27/2018 Active lancets (onetouch ultrasoft) misc 1 each by other route as directed. Check blood sugar two times a day with meals or as directed 200 each 03/28/2018 Active glipiZIDE (GLUCOTROL) 10 mg tabletIndicatio ns:type 2 diabetes mellitus Take 1 tablet (10 mg total) by mouth 2 (two) times a day with meals. 180 tablet 2 04/26/2018 Active metFORMIN (GLUCOPHAGE) 1,000 mg tablet Take 1 tablet (1,000 mg total) by mouth 2 (two) times a day with meals. 180 tablet 2 04/26/2018 Active JANUVIA 100 mg tablet TAKE 1 TABLET BY MOUTH ONCE DAILY 90 tablet 1 03/01/2019 Active Active Problems Problem Noted Date Diagnosed Date Uncontrolled type 2 diabetes mellitus with hyperglycemia, without long-term current use of insulin 01/06/2018 Social History Tobacco Use Types Packs/Day Years Used Date Smoking Tobacco: Never Smokeless Tobacco: Never Personal Safety Answer Date Recorded Getting School Help Needed Not on file 10/29 Sex and Gender Information Value Date Recorded Sex Assigned at Not on file Legal Sex Male 1:58 PM CDT Gender Identity Not on file Sexual Orientation Not on file Last Filed Vital Signs Vital Sign Reading Time Taken Comments Blood Pressure 138/64 08/03/2018 9:59 AM 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 OPERATOR Pulse - - Temperature - - Respiratory Rate - - Oxygen Saturation - - Inhaled Oxygen Concentration - - Weight 115.1 kg (253 lb 12.8 oz) 08/03/2018 9:59 AM 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 OPERATOR Height 190.5 cm (6' 3 ) 08/03/2018 9:59 AM 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 OPERATOR Body Mass Index 31.72 08/03/2018 9:59 AM 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 OPERATOR Plan of Treatment Not on file Insurance MEDICARE [employer] [facility] MEDICARE Address: [facility] [address] [place] [address] Care Teams Neon Installer Relationship Specialty Start Date End Date Tong Arzate MD PCP - General 08/03/18
--- OUTSIDE RECORDS SUMMARY | 2024-09-19 14:30 | XMS_ITS | Data Portability ---
Author Organization [facility] [place] [facility] Address [address] [place] [address] Care Team Providers Care Aluminum Siding Installer Name Role Phone YOVANI ARZATE Primary Care Provider Assessment Encounter Date Assessment Date Assessment LastModified by Organization Details LastModified Time 10/21/2023 10/21/2023 Hypertension controlled diabetes will be due for blood work next visit hypercalcemia check PTH and calcium history of elevated PSA see urology chronic back pain increase duloxetine to 60 twice daily follow-up with me in 3 to with blood work at that time [email or web address] Not available 10/22/2023 20:57:28 02/24/2024 02/24/2024 diagnosis in the assessment and plan discussed medications discussed and they relate diagnosis and treatment see me 4 months [email or web address] Not available 02/25/2024 13:41:40 04/05/2024 04/05/2024 given the poppin g and immediate numbness in his hands we are going to get an MRI of the C-spine I will give him some Valium the help him relax before and as he has troubles lying still for long period of time and that is chronic because of spinal stenosis in his lower back with a perirectal abscess Augmentin being overweight healthy lifestyle care instructions he will keep his regular follow up with me further recommendations depending upon the results of the MRI [email or web address] Not available 04/05/2024 21:25:27 06/13/2024 06/13/2024 clindamycin healthy lifestyle care instructions dermatology referral diabetic eye exam blood work follow up 4 months recommended to stay up-to-date on flu COVID pneumococcal [email or web address] Not available 06/13/2024 23:33:10 Plan of Treatment Reminders Order Date Submit Date Provider Last Modified By Organization Details Last Modified Time Details Appointments ANY 15 2024 10:15A M Yovani Arzate MD Not available Not available Not available Lab PTH (parathyr oid hormone), intact, serum or plasma 2023 024 [facility], [address], [address], [place], [address], 10/24/2023 17:09:19 calcium, ionized, quant ISE, serum or plasma 2023 024 [facility], [address], [address], [place], [address], 10/24/2023 17:09:19 HbA1c (hemoglob in A1c), blood 2023 024 [facility], [address], [place], [address], 06/14/2024 09:16:28 lipid panel, serum 2023 024 [facility], [address], [place], [address], 06/14/2024 09:16:25 CMP, serum or plasma 2023 024 [facility] [address], [place], [address], 06/14/2024 09:16:27 CBC w/ auto diff 2023 024 [facility], [address], [place], [address], 06/14/2024 09:16:29 Referral urologist referral 2023 024 braeden Bee MD, [address], [place], [address], 04/11/2024 14:48:10 dermatolo gist referral 2023 024 [facility], [address] [place], [address], 08/09/2024 11:42:47 Procedures None recorded. Surgeries None recorded. Imaging MRI, cervical spine, w/o contrast 2023 [facility] ([facility]), [address] [place], [address], 04/06/2024 12:17:27 Medication Orders duloxetin e 60 mg capsule,d elayed release [address] [facility], [address] [place] [address], [address], 10/21/2023 15:46:49 Augmentin 875 mg-[address] [facility], [address] [place] [address], [address], 06/13/2024 13:19:53 clindamyc in HCl 300 mg capsule [address] [facility], [address] [place] [address], [address], 06/13/2024 15:31:33 Patient TargetsNo targets recorded. Patient Instructions Encounter Date Encounter Id Patient Instructions Last Modified By Organization Details Last Modified Time 02/24/2024 [id number] A healthy lifestyle: care instructions [email or web address] Not available 02/25/2024 13:41:54 04/05/2024 [id number] A healthy lifestyle: care instructions [email or web address] Not available 04/05/2024 13:23:13 06/13/2024 [id number] A healthy lifestyle: care instructions [email or web address] Not available 06/13/2024 15:31:33 diabetic eye exam* MARY Not available 06/18/2024 10:00:09 Reason for Referral Urologist Referral for Prost ate specific antigen above reference range Referring Physician: Yovani Arzate, Internal Medicine, Encounter Date: 10/21/2023 Information Manager Referral for S kin lesion Referring Physician: Yovani Arzate, Internal Medicine, Encounter Date: 06/13/2024 Results Created Date Observation Date Name Description Value Unit Range Abnormal Flag Note LastModifiedBy Organization Detail LastModifiedTime 10/21/19 24 10/24/2023 CALCI UM, IONIZ ED, SERUM calcium, ionized, serum 5.4 mg/dL 4.5-5. 6 Not Available [facility] ([facility]) [address] [place], [address], 10/24/2023 17:09:19 10/21/19 24 10/23/2023 PTH, INTAC T PTH, intact 93 pg/mL 15-65 above high normal Not Available [facility] ([facility]) [address] [place], [address], 10/24/2023 17:09:19 06/13/20 24 06/14/2024 LIPID PANEL cholesterol, total 196 mg/dL 100-19 9 Not Available [facility] ([facility]) [address] [place], [address], 06/14/2024 09:16:25 06/13/20 24 06/14/2024 LIPID PANEL triglyceride s 315 mg/dL 0-149 above high normal Not Available [facility] ([facility]) [address] [place], [address], 06/14/2024 09:16:25 06/13/20 24 06/14/2024 LIPID PANEL HDL cholesterol 36 mg/dL >39 below low normal Not Available [facility] ([facility]) [address] [place], [address], 06/14/2024 09:16:25 06/13/20 24 06/14/2024 LIPID PANEL VLDL cholesterol joann 54 mg/dL 5-40 above high normal Not Available [facility] ([facility]) [address] [place], [address], 06/14/2024 09:16:25 06/13/20 24 06/14/2024 LIPID PANEL LDL chol calc ([facility]) 106 mg/dL 0-99 above high normal Not Available [facility] ([facility]) [address] [facility], [place], [address], 06/14/2024 09:16:25 06/13/20 24 06/14/2024 COMP. METAB OLIC PANEL (14) glucose 170 mg/dL 70-99 above high normal Not Available [facility] ([facility]) [address] [facility], [place], [address], 06/14/2024 09:16:27 06/13/2006/14/2024 COMP. METAB OLIC PANEL (14) BUN 33 mg/dL 8-27 above high normal Not Available [facility] ([facility]) [address] [facility], [place], [address], 06/14/2024 09:16:27 06/13/2006/14/2024 COMP. METAB OLIC PANEL (14) creatinine 1.63 mg/dL 0.76-1 .27 above high normal Not Available [facility] ([facility]) [address] [facility], [place], [address], 06/14/2024 09:16:27 06/13/2006/14/2024 COMP. METAB OLIC PANEL (14) eGFR 42 mL/mi n/1.7 3 >59 below low normal Not Available [facility] ([facility]) [address] [place], [address], 06/14/2024 09:16:27 06/13/2006/14/2024 COMP. METAB OLIC PANEL (14) BUN/creatini ne ratio 20 10-24 Not Available [facility] ([facility]) [address] [place], [address], 06/14/2024 09:16:27 06/13/2006/14/2024 COMP. METAB OLIC PANEL (14) sodium 141 mmol/ L 134-14 4 Not Available [facility] ([facility]) [address] [facility] [place], [address], 06/14/2024 09:16:27 06/13/20 24 06/14/2024 COMP. METAB OLIC PANEL (14) potassium 6.3 mmol/ L 3.5-5. 2 above high normal Not Available [facility] ([facility]) [address] [facility], [place], [address], 06/14/2024 09:16:27 06/13/2006/14/2024 COMP. METAB OLIC PANEL (14) chloride 103 mmol/ L 96-106 Not Available [facility] ([facility]) [address] [facility], [place], [address], 06/14/2024 09:16:27 06/13/20 24 06/14/2024 COMP. METAB OLIC PANEL (14) carbon dioxide, total 25 mmol/ L 20-29 Not Available [facility] ([facility]) [address] [facility] [place], [address], 06/14/2024 09:16:27 06/13/20 24 06/14/2024 COMP. METAB OLIC PANEL (14) calcium 10.8 mg/dL 8.6-10 .2 above high normal Not Available [facility] ([facility]) [address] [place], [address], 06/14/2024 09:16:27 06/13/20 24 06/14/2024 COMP. METAB OLIC PANEL (14) protein, total 6.7 g/dL 6.0-8. 5 Not Available [facility] ([facility]) [address] [facility] [place], [address], 06/14/2024 09:16:27 06/13/20 24 06/14/2024 COMP. METAB OLIC PANEL (14) albumin 4.2 g/dL 3.7-4. 7 Not Available [facility] ([facility]) [address] [facility] [place], [address], 06/14/2024 09:16:27 06/13/20 24 06/14/2024 COMP. METAB OLIC PANEL (14) globulin, total 2.5 g/dL 1.5-4. 5 Not Available [facility] ([facility]) [address] [place], [address], 06/14/2024 09:16:27 06/13/20 24 06/14/2024 COMP. METAB OLIC PANEL (14) bilirubin, total 0.3 mg/dL 0.0-1. 2 Not Available [facility] ([facility]) [address] [place], [address], 06/14/2024 09:16:27 06/13/20 24 06/14/2024 COMP. METAB OLIC PANEL (14) alkaline phosphatase 99 IU/L 44-121 Not Available [facility] ([facility]) [address] [facility] [place], [address], 06/14/2024 09:16:27 06/13/20 24 06/14/2024 COMP. METAB OLIC PANEL (14) AST (SGOT) 14 IU/L 0-40 Not Available [facility] ([facility]) [address] [place], [address], 06/14/2024 09:16:27 06/13/20 24 06/14/2024 COMP. METAB OLIC PANEL (14) ALT (SGPT) 12 IU/L 0-44 Not Available [facility] ([facility]) [address] [place], [address], 06/14/2024 09:16:27 06/13/20 24 06/14/2024 HEMOG LOBIN A1C hemoglobin A1C 8.7 % 4.8-5. 6 above high normal Predi abete s: 5.7 - 6.4 Diabe severo: >6.4 Glyce silva contr ol for adult s with diabe severo: <7.0 Not Available [facility] ([facility]) [address] [facility], [place], [address], 06/14/2024 09:16:28 06/13/2006/14/2024 CBC WITH DIFFE RENTI AL/PL ATELE T WBC 8.0 x10e3 /uL 3.4-10 .8 Not Available [facility] ([facility]) [address] [facility], [place], [address], 06/14/2024 09:16:29 06/13/2006/14/2024 CBC WITH DIFFE RENTI AL/PL ATELE T RBC 4.54 x10e6 /uL 4.14-5 .80 Not Available [facility] ([facility]) [address] [facility], [place], [address], 06/14/2024 09:16:29 06/13/2006/14/2024 CBC WITH DIFFE RENTI AL/PL ATELE T hemoglobin 12.7 g/dL 13.0-1 7.7 below low normal Not Available [facility] ([facility]) [address] [place], [address], 06/14/2024 09:16:29 06/13/2006/14/2024 CBC WITH DIFFE RENTI AL/PL ATELE T hematocrit 41.0 % 37.5-5 1.0 Not Available [facility] ([facility]) [address] [place], [address], 06/14/2024 09:16:29 06/13/2006/14/2024 CBC WITH DIFFE RENTI AL/PL ATELE T MCV 90 fL 79-97 Not Available [facility] ([facility]) [address] [place], [address], 06/14/2024 09:16:29 06/13/2006/1406/14/2024 CBC WITH DIFFE RENTI AL/PL ATELE T MCH 28.0 pg 26.6-3 3.0 Not Available [facility] ([facility]) [address] [facility], [place], [address], 06/14/2024 09:16:29 06/13/20 24 06/14/2024 CBC WITH DIFFE RENTI AL/PL ATELE T MCHC 31.0 g/dL 31.5-3 5.7 below low normal Not Available [facility] ([facility]) [address] [facility], [place], [address], 06/14/2024 09:16:29 06/13/2006/14/2024 CBC WITH DIFFE RENTI AL/PL ATELE T RDW 13.6 % 11.6-1 5.4 Not Available [facility] ([facility]) [address] [facility], [place], [address], 06/14/2024 09:16:29 06/13/2006/14/2024 CBC WITH DIFFE RENTI AL/PL ATELE T platelets 231 x10e3 /uL 150-45 0 Not Available [facility] ([facility]) [address] [facility], [place], [address], 06/14/2024 09:16:29 06/13/2006/14/2024 CBC WITH DIFFE RENTI AL/PL ATELE T neutrophils 64 % notest ab. Not Available [facility] ([facility]) [address] [facility], [place], [address], 06/14/2024 09:16:29 06/13/2006/14/2024 CBC WITH DIFFE RENTI AL/PL ATELE T lymphs 24 % notest ab. Not Available [facility] ([facility]) [address] [facility], [place], [address], 06/14/2024 09:16:29 06/13/2006/14/2024 CBC WITH DIFFE RENTI AL/PL ATELE T monocytes 8 % notest ab. Not Available [facility] ([facility]) [address] [facility], [place], [address], 06/14/2024 09:16:29 06/13/20 24 06/14/2024 CBC WITH DIFFE RENTI AL/PL ATELE T eos 3 % notest ab. Not Available [facility] ([facility]) [address] [facility], [place], [address], 06/14/2024 09:16:29 06/13/2006/14/2024 CBC WITH DIFFE RENTI AL/PL ATELE T basos 1 % notest ab. Not Available [facility] ([facility]) [address] [facility], [place], [address], 06/14/2024 09:16:29 06/13/2006/14/2024 CBC WITH DIFFE RENTI AL/PL ATELE T neutrophils (absolute) 5.2 x10e3 /uL 1.4-7. 0 Not Available [facility] ([facility]) [address] [facility], [place], [address], 06/14/2024 09:16:29 06/13/2006/14/2024 CBC WITH DIFFE RENTI AL/PL ATELE T lymphs (absolute) 1.9 x10e3 /uL 0.7-3. 1 Not Available [facility] ([facility]) [address] [facility], [place], [address], 06/14/2024 09:16:29 06/13/2006/14/2024 CBC WITH DIFFE RENTI AL/PL ATELE T monocytes(ab solute) 0.6 x10e3 /uL 0.1-0. 9 Not Available [facility] ([facility]) [address] [facility], [place], [address], 06/14/2024 09:16:29 06/13/2006/14/2024 CBC WITH DIFFE RENTI AL/PL ATELE T eos (absolute) 0.2 x10e3 /uL 0.0-0. 4 Not Available [facility] ([facility]) [address] [place], [address], 06/14/2024 09:16:29 06/13/20 24 06/14/2024 CBC WITH DIFFE RENTI AL/PL ATELE T baso (absolute) 0.1 x10e3 /uL 0.0-0. 2 Not Available [facility] ([facility]) [address] [facility], [place], [address], 06/14/2024 09:16:29 06/13/2006/14/2024 CBC WITH DIFFE RENTI AL/PL ATELE T immature granulocytes 0 % notest ab. Not Available [facility] ([facility]) [address] [place], [address], 06/14/2024 09:16:29 06/13/20 24 06/14/2024 CBC WITH DIFFE RENTI AL/PL ATELE T immature grans (abs) 0.0 x10e3 /uL 0.0-0. 1 Not Available [facility] ([facility]) [address] [place], [address], 06/14/2024 09:16:29 06/21/20 24 06/22/2024 POTAS SIUM potassium 5.8 mmol/ L 3.5-5. 2 above high normal Not Available [facility] ([facility]) [address] [place], [address], 06/22/2024 06:22:17 07/04/20 24 07/05/2024 POTAS SIUM potassium 5.5 mmol/ L 3.5-5. 2 above high normal Not Available [facility] ([facility]) [address] [place], [address], 07/05/2024 09:15:32 04/06/20 24 04/06/2024 MRI, cervi joann spine , w/o contr ast No observ ation record ed. [facility] [address] [place], [address], 04/09/2024 15:03:56 Result Notes None recorded. Problems Name Problem SNOMED Code Status Onset Date Resolution Date Notes Provider Name and Address Organization Details Recorded Time Neck pain 10528398 Active 2023 Donnie Pereira [place] null, [place] - [facility] 4 12:47:03 Obesity 516445910 Active 2023 Donnie Pe[place], [place] [facility] 4 12:47:05 Spinal stenosis of lumbar region 59309289 Active 2023 Donnie Pe[place], [place] [facility] 4 13:01:44 Hyperlipidemia 40552828 Active 2023 Donnie Pe[place], [place] [facility] 4 13:01:46 Essential hypertension 94748057 Active 2023 Donnie Pe[place], [place] [facility] 4 13:01:47 Type 2 diabetes mellitus 40039479 Active 2023 Donnie Pe[place] [facility] 4 13:01:49 Skin lesion 59472394 Active 2023 Donnie Pe[place], [place] [facility] 4 13:01:50 Body mass index 30+ - obesity 094694301 Active 2023 Donnie Pereira [place], [place] [facility] 4 13:01:54 Problem Notes None recorded. Procedures Surgical History None recorded. Imaging Results Imaging Date Name Status LastModified by [facility] Details LastModified Time 04/06/2024 MRI, cervical spine, w/o contrast completed [facility] [address] [place], [address], 04/09/2024 15:03:56 Procedure Notes None recorded. Medical Equipment None Reported. Allergies No known drug allergies Medications Name Sig Start Date Stop Date Status Note LastModified by Organization Details LastModified Time OneTouch Ultra Blue Test Strips use 1strip to check glucose twice daily 2023 active Not Available Not Available Not Avai lable cyclobenzap rine 10 mg tablet TAKE 1 TABLET BY MOUTH ONCE DAILY 10/20 completed Not Available Not Available Not Available clindamycin HCl 300 mg capsule Take 1 capsule 3 times a day by oral route for 7 days. active Not Available Not Available No t Available azithromyci n 250 mg tablet TAKE 2 TABLETS BY MOUTH ON DAY 1, AND THEN TAKE 1 TABLET BY MOUTH ONCE A DAY ON DAY 2 THROUGH DAY 5 active Not Available Not Available No t Available glipizide 10 mg tablet TAKE 1 TABLET BY MOUTH TWICE DAILY active Not Available Not Available No t Available lovastatin 40 mg tablet TAKE 1 TABLET BY MOUTH ONCE DAILY active Not Available Not Available No t Available carvedilol 3.125 mg tablet TAKE 1 TABLET BY MOUTH TWICE DAILY active Not Available Not Available No t Available alprazolam 0.5 mg tablet TAKE 1 TABLET BY MOUTH 1 HOUR PRIOR TO PROCEDURE .THEN TAKE 1 TABLET 30 MIN PRIOR TO PROCEDURE .BRING 3RD TABLET TO APPOINTOH NT FOR PROCEDURE . 10/20 completed Not Available Not Available Not Available OneTouch Ultra Test strips USE 1 STRIP TO CHECK GLUCOSE TWICE DAILY 2023 active Not Available Not Available Not Avai lable benzonatate 100 mg capsule TAKE 1 CAPSULE BY MOUTH EVERY 8 HOURS NEEDED FOR COUGH AND CONGESTIO N 10/20 completed Not Available Not Available Not Available metformin 1,000 mg tablet TAKE 1 TABLET BY MOUTH TWICE DAILY active Not Available Not Available No t Available lisinopril 10 mg tablet TAKE 1 TABLET BY MOUTH TWICE DAILY active Not Available Not Available No t Available diazepam 5 mg tablet TAKE 1 TAB 1/2 HOUR BEFORE MRI 06/13 completed Not Available Not Available Not Available amoxicillin 875 mg-potassiu m clavulanate 125 mg tablet TAKE 1 TABLET BY MOUTH TWICE DAILY FOR 10 DAYS 06/13 completed Not Available Not Available Not Available Super Beta-Carote ne 7,500 mcg (25,000 unit) capsule Take 2 capsules every day by oral route. active Not Available Not Available No t Available duloxetine 30 mg capsule,del ayed release TAKE 1 CAPSULE BY MOUTH ONCE DAILY 10/20 completed Not Available Not Available Not Available duloxetine 60 mg capsule,del ayed release TAKE 1 CAPSULE BY MOUTH TWICE DAILY active Not Available Not Available No t Available Aleve prn active Not Available Not Availa ble Not Available Januvia 100 mg tablet TAKE 1 TABLET BY MOUTH ONCE DAILY active Not Available Not Available No t Available OneTouch Delica Plus Lancet 33 gauge USE 1 TO CHECK GLUCOSE ONCE DAILY active Not Available Not Available No t Available tramadol 100 mg tablet TAKE 1 TABLET BY MOUTH TWICE DAILY NEEDED 06/13 completed Not Available Not Available Not Available aspirin 81 mg capsule Take 1 capsule every day by oral route. active Not Available Not Available No t Available Paxlovid 300 mg (150 mg x 2)-100 mg tablets in a dose pack TAKE 3 TABLETS TOGETHER (TWO 150 MG NIRMATREL VIR TABLETS AND ONE 100 MG RITONAVIR TABLET) BY MOUTH TWICE DAILY FOR 5 DAYS. 10/20 completed Not Available Not Available Not Available Vitals Date Recorded Body weight Heart rate Oxygen saturation Oxygen saturation in Arterial blood by Pulse oximetry Systolic blood pressure Diastolic blood pressure Provider Name and Address Organization Details Last Updated DateTime 4 238033. 61 g 73 /min 95 % 95 % 124 mm[Hg] 66 mm[Hg] Swetha Herrera MA [facility] 4 10:37:03 Date Recorded Body weight Body mass index (BMI) Body height Heart rate Oxygen saturation Oxygen saturation in Arterial blood by Pulse oximetry Systolic blood pressure Diastolic blood pressure Provider Name and Address Organization Details Last Updated DateTime 4 545103. 71 g 32.8 kg/m2 182.88 cm 72 /min 97 % 97 % 112 mm[Hg] 62 mm[Hg] Nikki Castorena MA [facility] 4 09:49:25 Date Recorded Body height Body mass index (BMI) Body weight Heart rate Oxygen saturation Oxygen saturation in Arterial blood by Pulse oximetry Systolic blood pressure Diastolic blood pressure Provider Name and Address Organization Details Last Updated DateTime 4 182.88 cm 32.7 kg/m2 994587. 76 g 69 /min 97 % 97 % 114 mm[Hg] 68 mm[Hg] Nikki Castorena MA [facility] 4 12:07:23 Date Recorded Body height Body mass index (BMI) Body weight Heart rate Oxygen saturation Oxygen saturation in Arterial blood by Pulse oximetry Systolic blood pressure Diastolic blood pressure Provider Name and Address Organization Details Last Updated DateTime 182.88 cm 32.8 kg/m2 205388. 56 g 77 /min 96 % 96 % 130 mm[Hg] 70 mm[Hg] Ashley Cronin MA [facility] 12:32:38 Social History Question Answer Notes LastModified by Organizat ion Details LastModified Time Tobacco Smoking Status Never Smoker BAN Ruggiero, [facility] 10/21/2023 10:34:11 Do You Have An Advance Directive? No Information n ot available 02/24/2024 What Is Your Level Of Alcohol Consumption? None Information not available 10/21/2023 Are You Blind Or Do You Have Difficulty Seeing? No Information n ot available 02/24/2024 What Is Your Level Of Caffeine Consumption? Moderate Information not available 10/21/2023 In The 14 Days Before Symptom Onset, Have You Had Close Contact With A Laboratory-confirm ed COVID-19 While That Case Was Ill? No Information n ot available 02/24/2024 In The 14 Days Before Symptom Onset, Have You Had Close Contact With A Person Who Is Under Investigation For COVID-19 While That Person Was Ill? No Information not available 02/24/2024 Have You Been To An Area Known To Be High Risk For COVID-19? No Information not available 02/24/2024 Are You Currently Employed? No Information not available 02/24/2024 Are You Deaf Or Do You Have Serious Difficulty Hearing? No Information not available 02/24/2024 What Type Of Diet Are You Following? REGULAR Information n ot available 02/24/2024 Are There Any Guns Present In Your Home? No Information not available 02/24/2024 What Was The Date Of Your Most Recent Tobacco Screening? 06/13/2024 [email or web address] Information not available 06/13/2024 What Is Your Relationship Status? Information not available 02/24/2024 Do You Use Your Seat Belt Or Car Seat Routinely? Yes Information not available 02/24/2024 Do You Have Smoke And Carbon Monoxide Detectors In Your Home? Yes Information not available 02/24/2024 Do You Feel Stressed (tense, Restless, Nervous, Or Anxious, Or Unable To Sleep At Night)? [id number] Information not available 02/24/2024 Do You Use Any Illicit Or Recreational Drugs? No Information not available 10/21/2023 Do You Use Sunscreen Routinely? Yes Information not available 02/24/2024 Has Tobacco Cessation Counseling Been Provided? No Information not available 10/21/2023 Do You Or Have You Ever Used Any Other Forms Of Tobacco Or Nicotine? No Information not available 10/21/2023 Sex: Male Functional Status Question Answer Note LastModified by Organization D etails LastModified Time Are you able to care for yourself? Yes Information n ot available 02/24/2024 What is your exercise level? None Information not available 02/24/2024 Mental Status None recorded. Family History Relationship Description Onset Age of this Age Resolved Age Notes LastModified by Organization Details LastModified Time Father Alcohol abuse [email or web address] Not available 2023 10:37:30 Mother Malignant tumor of lung [email or web address] Not available 2023 10:37:52 Medical History Condition Response Coronary Artery Disease N Other N High Blood Pressure Y Atrial Fibrillation N Kidney or Bladder Problems N Thyroid Problems N GI Problems N Depression N COPD N Blood Clots N Have you had a mammogram in the last yea r? N Skin Problems N Anemia N Heart Attack ([place]) N Anxiety Disorder N Diabetes Y Muscle, Joint, or Bone Problems N Seizures/Epilepsy N Have you had a colonoscopy in the last 1 0 years? N Acid Reflux (GERD) N Cancer N Stroke N Asthma N Allergies N Have you had a PSA blood test in the las t year? N High Cholesterol Y Hepatitis N Liver Disease N Headaches N Heart Failure N Osteoporosis N Immunizations Vaccine Type Date Status Note Provider Nam e and Address Organization Details Recorded Time Influenza, high-dose, quadrivalent, PF 0 completed [place] [facility] 02/24/2024 09:38:45 Influenza, high-dose, quadrivalent, PF 3 [place] [facility] 02/24/2024 09:38:45 Influenza, high-dose, quadrivalent, PF 1 [place] [facility] 02/24/2024 09:38:46 Influenza, high-dose, quadrivalent, PF 2 [place] [facility] 02/24/2024 09:38:46 COVID-19, mRNA, LNP-S, PF, 100 mcg/0.5mL dose or 50 mcg/0.25mL dose 1 [place] [facility] 02/24/2024 09:38:46 COVID-19, mRNA, LNP-S, PF, 100 mcg/0.5mL dose or 50 mcg/0.25mL dose 2 [place] [facility] 02/24/2024 09:38:46 COVID-19, mRNA, LNP-S, PF, 100 mcg/0.5mL dose or 50 mcg/0.25mL dose 1 [place] [facility] 02/24/2024 09:38:46 COVID-19, mRNA, LNP-S, bivalent, PF, 50 mcg/0.5 mL or 25mcg/0.25 mL dose 2 [place] [facility] 02/24/2024 09:38:46 RSV, recombinant, protein subunit RSVpreF, adjuvant reconstituted, 0.5 mL, PF 3 [place] [facility] 02/24/2024 09:38:46 COVID-19, mRNA, LNP-S, PF, 50 mcg/0.5 mL 3 [place] [facility] 02/24/2024 09:38:46 pneumococcal polysaccharide PPV23 7 [place] [facility] 02/24/2024 09:38:46 pneumococcal polysaccharide PPV23 7 completed [place] [facility] 02/24/2024 09:38:46 Pneumococcal conjugate PCV 13 9 completed BAN Doll, [facility] 02/24/2024 09:38:46 Influenza, high-dose, trivalent, PF 8 completed [place], [facility] 02/24/2024 09:38:46 Influenza, high-dose, trivalent, PF 9 completed [place] [place], [facility] 02/24/2024 09:38:46 Influenza, high-dose, trivalent, PF 7 completed BAN Doll, [facility] 02/24/2024 09:38:46 Td (adult), 2 Lf tetanus toxoid, preservative free, adsorbed 2 completed [place]AN [place], [facility] 02/24/2024 09:38:46 Past Encounters Encounter ID Performer Location Encounter Start Date Encounter Closed Date Diagnosis/Indication Diagnosis SNOMED-CT Code Diagnosis ICD10 Code Diagnosis Note [id number] [facility] [address] [place] [id number] 10/21/2023 10:03:23 10/21/2023 11:43:43 Essential hypertension 90919773 I10 Hypercalcemia 64340175 E 83.52 Prostate s pecific antigen above reference range 079128287 R97.20 Renewal of prescription 105966870 Z76.0 [id number] MD Levi Ordaz (Adult Med) [address] [place] [id number] 02/24/2024 09:32:26 02/24/2024 10:41:05 Obesity 490988709 E66.8 Essential hypertension 23481826 I10 Hyperlipidemia 30091598 E78.5 Type 2 nae betes mellitus 39638282 E11.9 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 28723197 M48.519 [id number] Yovani Arzate MD [facility] [place] [address] [place] [address] 04/05/2024 11:30:31 04/05/2024 12:51:23 Obesity 798354488 E66.8 Neck pain 42698013 M54.2 Perirectal abscess 29345 008 K61.1 [id number] Yovani Arzate MD [facility] (Adult [facility]) [address] [place] [phone] 06/13/2024 11:58:35 06/13/2024 13:00:50 Body mass index 30+ - obesity 561678713 Z68.32 Obesity 625794908 E66.9 Skin lesion 18886130 L98 .9 Type 2 nae betes mellitus 43782139 E11.9 Essential hypertension 65107011 I10 Hyperlipidemia 48327233 E78.5 Cellulitis 484536995 L03 .90 Health Concerns Section Related Observation LastModified by Organization Detai ls LastModified Time None Recorded Concern Status LastModified by Organization Details LastModified Time None Recorded Advance Directives Directive N: Payers Encounter Date Sequence Insurance Name Policy Number Policy Zamora Covered Member ID Zamora Member ID Guarantor Name 10/21/2023 1 [facility] (MEDICARE REPLACEMENT/A DVANTAGE - HMO) [id number] Mahesh Maldonado [id number] Mahesh Maldonado 02/24/2024 1 [facility] (MEDICARE REPLACEMENT/A DVANTAGE - HMO) [id number] Mahesh Maldonado [id number] Mahesh Maldonado 04/05/2024 1 [facility] (MEDICARE REPLACEMENT/A DVANTAGE - HMO) [id number] Mahesh Maldonado [id number] Mahesh Maldonado 06/13/2024 1 [facility] (MEDICARE REPLACEMENT/A DVANTAGE - HMO) [id number] Mahesh Maldonado [id number] Mahesh Maldonado Notes Date Note Type Note Provider Name and Address Organization Details Recorded Time text/html Hypertension no headache no dizzinessHypercalcemia asymptomatic needs blood work checkedHistory of elevated PSA getting to urologyHyperlipidemia is to follow low-fatType 2 diabetes no polyphasia no planLumbar spinal stenosis he has been to pain management and does not want to go back on a whole lot that they can offer Yovani Arzate MD Attn: Accounting,[address] [place] [address], [phone], [facility] 10/22/2023 20:57:48 4 text/html Hypertension no headache no dizzinessHypercalcemia asymptomatic needs blood work checkedHistory of elevated PSA getting to urologyHyperlipidemia is to follow low-fatType 2 diabetes no polyphasia no planLumbar spinal stenosis he has been to pain management and does not want to go back on a whole lot that they can offer Yovani Arzate MD Attn: Anurag,[address] [facility], [place], [address], [facility] [place] 02/25/2024 13:41:56 4 text/html have some popping in his neck and I discussed some numbness in both of his hands no bowel or bladder incontinence the pain is when he turns from [id number]. he has soreness in his left buttock where he has cyst before no fever no chills Yovani Arzate MD Attn: Anurag,[address] [facility], [place], [address], [facility] 04/05/2024 21:25:46 4 text/html cellulitis on buttocks is flared up a little bit hyperlipidemia trying to follow a low-fat diet hypertension no chest pain headache or dizziness. Diabetes he does not take not take his sugar has been no polyphagia polydipsia. Skin lesion needs to see Dermatology obesity trouble losing weight cervical spondylosis he did see neck surgeon in interval history no surgery planned Yovani Arzate MD Attn: Anurag,[address] [facility], [place], [address], [facility] 06/13/2024 23:33:27
--- OUTSIDE RECORDS SUMMARY | 2024-09-19 14:30 | XMS_ITS | CONTINUITY OF CARE DOCUMENT ---
Author Name neo larson Address Unknown Organization [facility] Address [address] [place] [address] Phone [phone] Care Team Providers Care Gandy Dancer Name Role Phone Cristian CHOW, Heidy Orozco Unavailable YOVANI CHIRINOS MD Unavailable YOVANI CHIRINOS MD Unavailable PROBLEMS Condition Status Date Provider Notes Prostate cancer screening-hx of 12 prostate biopsy active Carlos Lux RN Diabetes mellitus, type 2 active Carlos Lux RN HTN essential active THALIA BURGESS MD Hyperlipidemia active THALIA BURGESS MD EKG active Heidy Foster MD Diabetes mellitus without me ntion of complication, type II or unspecified type, not stated as uncontrolled active THALIA BURGESS MD ENCOUNTERS Date Type Provider Location Encounter Diag nosis - In-person encounter Office Visit Heidy Foster MD [facility] EKG - In-person encounter Office Visit THALIA BURGESS MD [facility] - In-person encounter Office Visit THALIA BURGESS MD [facility] - In-person encounter Office Visit THALIA BURGESS MD [facility] - In-person encounter Office Visit THALIA BURGESS MD [facility] Hyperlipidemia - In-person encounter Office Visit THALIA BURGESS MD [facility] - In-person encounter Office Visit THALIA BURGESS MD [facility] - In-person encounter Office Visit THALIA BURGESS MD [facility] - In-person encounter Office Visit Nimesh Caruso [facility] - In-person encounter Office Visit THALIA BURGESS MD [facility] - In-person encounter Office Visit THALIA BURGESS MD [facility] - In-person encounter Office Visit THALIA BURGESS MD [facility] Diabetes mellitus without mention of complication, type II or unspecified type, not stated as uncontrolledHTN essential - In-person encounter Office Visit [facility] - In-person encounter Office Visit Nimes[facility] - In-person encounter Office Visit Nimesh [facility] - In-person encounter Office Visit [facility] - In-person encounter Office Visit [facility] - In-person encounter Office Visit [facility] - In-person encounter Office Visit Nimesh [facility] VITAL SIGNS Date Observation Value Provider Body Mass Index (Ratio) 30.62 kg/m2 Chacha Foster MD blood pressure, resting Yes [facility] blood pressure, diastolic 85 mm[Hg] To nsha [place] blood pressure, systolic 151 mm[Hg] Ton [facility] respiratory rate E&M 16 /min [facility] pulse rate 74 /min [facility] oxygen saturation, oximetry 97 % [facility] weight E&M 245 [lb_av] [facility] height E&M 75 [in_i] Tonsha Dunlap ALLERGIES No Known Drug Allergies RESULTS Date Observation Value Provider Reference Range Interpretation Location 8 hemoglobin A1C, blood, as % of total hemoglobin 8.2 % [facility] 4.8-5.6 High 8 lipoprotein, beta, serum, point, quantitative, calculated 110 mg/dL [facility] 0-99 High 8 very low density lipoproteins 55 mg/dL [facility] 5-40 High 8 HDL cholesterol, serum 37 mg/dL [facility] >39 Low 8 triglyceride, serum, random 276 mg/dL [facility] 0-149 High 8 cholesterol, serum 202 mg/dL [facility] 100-199 High 8 basophil count, absolute 0.0 x10E3/uL [facility] 0.0-0.2 8 Eosinophil Absolute Count 0.2 X10E3/UL [facility] 0.0-0.4 8 monocyte count, blood, automated 0.6 X10E3/UL [facility] 0.1-0.9 8 lymphocyte count, blood, automated 1.9 X10E3/UL [facility] 0.7-3.1 8 Absolute Neutrophils 4.3 X10E3/UL [facility] 1.4-7.0 8 basophils as percent of blood leukocytes 0 % [facility] Not Estab. 8 eosinophils as percent of blood leukocytes 3 % [facility] Not Estab. 8 monocytes as percent of blood leukocytes 8 % [facility] Not Estab. 8 lymphocytes as percent of blood leukocytes 27 % [facility] Not Estab. 8 neutrophils as percent of blood leukocytes 62 % [facility] Not Estab. 8 platelet count 218 X10E3/UL [facility] 617-124 9180/02/0 8 red blood cell distribution width 14.5 % [facility] 12.3-15.4 8 mean corpuscular hemoglobin concentration, RBC 32.2 G/DL [facility] 31.5-35.7 8 mean corpuscular hemoglobin, RBC 28.9 pg [facility] 26.6-33.0 8 mean corpuscular volume, RBC 90 fL [facility] 79-97 8 hematocrit, blood 42.2 % [facility] 37.5-51.0 8 hemoglobin, blood 13.6 g/dL [facility] 13.0-17.7 8 erythrocyte (RBC) count 4.71 X10E6/UL [facility] 4.14-5.80 8 leukocyte count, blood 7.0 X10E3/UL [facility] 3.4-10.8 8 alanine aminotransferase (SGPT), serum 12 1/L [facility] 0-44 8 aspartate aminotransferase (SGOT), serum 12 1/L [facility] 0-40 8 alkaline phosphatase, serum 63 1/L [facility] 39-117 8 bilirubin, serum, total 0.5 mg/dL [facility] 0.0-1.2 8 albumin/globulin ratio, serum 2.0 [facility] 1.2-2.2 8 globulin, serum 2.3 [facility] 1.5-4.5 8 albumin, serum 4.5 g/dL [facility] 3.5-4.8 8 protein, total, serum 6.8 g/dL [facility] 6.0-8.5 8 calcium, serum 9.8 mg/dL [facility] 8.6-10.2 8 carbon dioxide, venous blood 26 mmol/L [facility] 18-29 8 chloride, serum 101 mmol/L [facility] 96-106 8 potassium, serum 4.9 mmol/L [facility] 3.5-5.2 8 sodium, serum 141 mmol/L [facility] 325-031 0487/02/0 8 urea nitrogen/creatinine ratio, serum 20 [facility] 10-24 8 eGFR if not 65 mL/min/{1 .73_m2} [facility] >59 8 creatinine, serum 1.10 mg/dL [facility] 0.76-1.27 8 urea nitrogen, blood 22 mg/dL [facility] 8-27 8 blood glucose, random 147 mg/dL [facility] 65-99 High 5 thyroid stimulating hormone, serum 2.250 ??IU/ML [facility] 0.270 - 4.200 5 prostate specific antigen 4.4 ng/mL [facility] 0.0 - 4.0 High 5 very low density lipoproteins 38.2 mg/dL [facility] 5.0 - 40.0 5 LDL/HDL (low-density lipoprotein/high-den sity lipoprotein) ratio 2.7 RATIO [facility] - 5 lipoprotein, beta, serum, point, quantitative, calculated 111.8 (?) [facility] 0.0 - 100.0 High 5 HDL cholesterol, serum 42.0 mg/dL [facility] 35.0 - 55.0 5 cholesterol, serum 192.0 mg/dL [facility] 0.0 - 200.0 5 triglyceride, serum, fasting 191.0 mg/dL [facility] 0.[facility] - 150.0 High 5 red blood cell distribution width, size density 50.6 fL [facility] - 5 immature granulocytes, percentage of total cells, blood 0.3 % [facility] - 5 nucleated red blood cells as percent of blood leukocytes 0.0 % [facility] - 5 red blood cell (erythrocyte) count, per high power field 0.0 10*3/UL [facility] - 5 eosinophils as percent of blood leukocytes 2.1 % [facility] - 5 neutrophils as percent of blood leukocytes 65.4 % [facility] - 5 Absolute Neutrophils 4.7 CELLS/UL [facility] 1.5 - 7.8 5 basophils as percent of blood leukocytes 1.0 % [facility] - 5 Absolute Basophils 0.1 CELLS/UL [facility] 0.0 - 0.2 5 monocytes as percent of blood leukocytes 7.0 % [facility] - 5 Absolute Monocytes 0.5 CELLS/UL [facility] 0.2 - 1.0 5 lymphocytes as percent of blood leukocytes 24.2 % [facility] - 5 Absolute Lymphocytes 1.7 CELLS/UL [facility] 0.9 - 3.9 mean platelet volume 13.4 (?) [facility] - 5 platelet count 195.0 THOUSAND/ UL [facility] 100.0 - 400.0 5 mean corpuscular hemoglobin concentration, RBC 29.8 G/DL [facility] 31.0 - 38.0 Low 5 mean corpuscular hemoglobin, RBC 28.4 pg [facility] 25.0 - 35.0 mean corpuscular volume, RBC 95.2 fL [facility] 75.0 - 100.0 hematocrit, blood 43.3 % [facility] 35.0 - 55.0 5 hemoglobin, blood 12.9 g/dL [facility] 11.5 - 16.5 5 erythrocyte count, whole blood 4.6 MILLION/U L [facility] 3.5 - 5.5 5 hemoglobin A1C, blood, as % of total hemoglobin 8.2 % [facility] 4.0 - 5.6 High 7 thyroid stimulating hormone, serum 2.180 ??IU/ML [facility] 0.270 - 4.200 7 prostate specific antigen 4.8 ng/mL [facility] 0.0 - 4.0 High 7 very low density lipoproteins 47.4 mg/dL [facility] 5.0 - 40.0 High 7 LDL/HDL (low-density lipoprotein/high-den sity lipoprotein) ratio 3.2 RATIO [facility] - 7 lipoprotein, beta, serum, point, quantitative, calculated 118.6 (?) [facility] 0.0 - 100.0 High 7 HDL cholesterol, serum 37.0 mg/dL [facility] 35.0 - 55.0 7 cholesterol, serum 203.0 mg/dL [facility] 0.0 - 200.0 High triglyceride, serum, fasting 237.0 mg/dL [facility] 0.0 - 150.0 High anion gap, serum 11.5 [facility] - albumin/globulin ratio, serum 2.8 g/dL [facility] 1.1 - 2.5 High globulin, serum 2.5 [facility] 2.3 - 3.8 urea nitrogen/creatinine ratio, serum 17.0 [facility] - Estimated Glomerular Filtration Rate (calc) 77.8 (?) [facility] 59.0 - chloride, serum 102.5 mmol/L [facility] 98.0 - 107.0 7 potassium, serum 5.2 mmol/L [facility] 3.5 - 5.1 High sodium, serum 143.0 mmol/L [facility] 136.0 - 145.0 creatinine, serum 1.0 mg/dL [facility] 0.7 - 1.2 carbon dioxide, venous blood 29.0 mmol/L [facility] 23.0 - 31.0 albumin, serum 4.4 g/dL [facility] 3.5 - 5.2 calcium, serum 10.2 mg/dL [facility] 8.6 - 10.2 aspartate aminotransferase (SGOT), serum 15.0 1/L [facility] 0.0 - 40.0 alkaline phosphatase, serum 78.0 1/L [facility] 40.0 - 130.0 alanine aminotransferase (SGPT), serum 18.0 1/L [facility] 0.0 - 41.0 protein, total, serum 6.9 g/dL [facility] 6.6 - 8.7 bilirubin, serum, total 0.5 mg/dL [facility] 0.0 - 1.2 urea nitrogen, blood 17.0 mg/dL [facility] 8.0 - 23.0 7 blood glucose, random 135.0 mg/dL [facility] 74.0 - 99.0 High 7 red blood cell distribution width, size density 47.2 fL [facility] - 7 immature granulocytes, percentage of total cells, blood 0.2 % [facility] - 7 nucleated red blood cells as percent of blood leukocytes 0.2 % [facility] - 7 red blood cell (erythrocyte) count, per high power field 0.0 10*3/UL [facility] eosinophils as percent of blood leukocytes 2.3 % [facility] 7 neutrophils as percent of blood leukocytes 62.4 % [facility] - 7 Absolute Neutrophils 5.4 CELLS/UL [facility] 1.5 - 7.8 7 basophils as percent of blood leukocytes 0.7 % [facility] 7 Absolute Basophils 0.1 CELLS/UL [facility] 0.0 - 0.2 7 monocytes as percent of blood leukocytes 7.6 % [facility] 7 Absolute Monocytes 0.7 CELLS/UL [facility] 0.2 - 1.0 7 lymphocytes as percent of blood leukocytes 26.8 % [facility] - 7 Absolute Lymphocytes 2.3 CELLS/UL [facility] 0.9 - 3.9 7 mean platelet volume 11.9 (?) [facility] - 7 platelet count 232.0 THOUSAND/ UL [facility] 100.0 - 400.0 mean corpuscular hemoglobin concentration, RBC 31.0 G/DL [facility] 31.0 - 38.0 7 mean corpuscular hemoglobin, RBC 28.8 pg [facility] 25.0 - 35.0 7 mean corpuscular volume, RBC 92.8 fL [facility] 75.0 - 100.0 hematocrit, blood 43.9 % [facility] 35.0 - 55.0 7 hemoglobin, blood 13.6 g/dL [facility] 11.5 - 16.5 7 erythrocyte count, whole blood 4.7 MILLION/U L [facility] 3.5 - 5.5 7 hemoglobin A1C, blood, as % of total hemoglobin 8.3 % [facility] 4.0 - 6.0 High HISTORY OF MEDICATION USE Medication Status Instructions Dates Provider Indications Com ments GLIPIZIDE 10 MG ORAL TABLET active ONE TABLET TWICE DAILY 5 THALIA BURGESS MD GLUCOPHAGE 1000 MG ORAL TABLET active ONE TABLET TWICE DAILY 3 THALIA BURGESS MD LIPITOR 40 MG ORAL TABLET active ONE TAB. DAILY 3 Heidy Foster MD ASPIRIN 81 MG ORAL TABLET active ONE TAB. DAILY 3 THALIA BURGESS MD LISINOPRIL 10 MG ORAL TABLET active ONE TABLET DAILY 9 THALIA BURGESS MD LANTUS 100 UNIT/ML SUBCUTANEOUS SOLUTION completed INJECT 50 UNITS DAILY 3 - 5 THALIA BURGESS MD SOCIAL HISTORY Date Observation Value Provider number of grandchildren Heidy Foster MD smoking status Never smoker [facility] INSURANCE PROVIDERS Payer name Policy type / Coverage type [place] [employer] party ID AARP MEDICARE ADVANTAGE ([facility] COMPLETE PPO) Other [id number] ADVANCE DIRECTIVES Name Date DISCUSSED - NO DECISION MADE TREATMENT PLAN Date Name Performer Cardiology:CONCLUSIO NS: 1 . Normal left ventricular systolic function. Normal left ventricular size. Normal left ventricular wall thickness. There is E to A w ave reversal consistent with impaired LV relaxation. E/E': 12.8. Left ventricular ejection fraction is measured at 60 %. 2 . Normal right ventricular size. Normal right ventricular systolic function. 3 . There is trace physiologic mitral valve regurgitation. 4 . There is trace physiologic tricuspid valve regurgitation. 5 . The pulmonic valve is not well visualized. Normal pulmonic valve velocities by Doppler. There is mild pulmonic r egurgitation H is updated medication list for this problem includes: Aspirin 81 Mg Oral Tablet (Aspirin) ..... One tab. daily Lisinopril 10 Mg Oral Tablet (Lisinopril) ..... One tablet daily Heidy Foster MD Cardiology:CAROTID C ONCLUSIONS: 1 . <50% stenosis of the right ICA. 2 . Vertebral flow is antegrade bilaterally. H is updated medication list for this problem includes: Lipitor 40 Mg Oral Tablet (Atorvastatin calcium) ..... One tab. daily Heidy Foster MD Cardiology:A1C 7.8 H is updated medication list for this problem includes: Glipizide 10 Mg Oral Tablet (Glipizide) ..... One tablet twice daily Glucophage 1000 Mg Oral Tablet (Metformin hcl) ..... One tablet twice daily Aspirin 81 Mg Oral Tablet (Aspirin) ..... One tab. daily Lisinopril 10 Mg Oral Tablet (Lisinopril) ..... One tablet daily Heidy Foster MD Date Name COMPREHENSIVE METABO LIC PANEL, W/EGFR LIPID PANEL Carotid Duplex Bilat eral Complete Echo PSA, TOTAL TSH, 3RD GENERATION W/REFLEX TO FT4 HEMOGLOBIN A1c LIPID PANEL COMPREHENSIVE METABO LIC PANEL, W/EGFR CBC (INCLUDES DIFF/P LT) TSH, 3RD GENERATION W/REFLEX TO FT4 PSA, TOTAL HEMOGLOBIN A1c LIPID PANEL CBC (INCLUDES DIFF/P LT) PSA, TOTAL HEMOGLOBIN A1c TSH, 3RD GENERATION W/REFLEX TO FT4 LIPID PANEL COMPREHENSIVE METABO LIC PANEL W/EGFR CBC (INCLUDES DIFF/P LT) HISTORY OF PROCEDURES Procedure Date Procedure Name Provider Procedure Notes S tatus EKG Heidy Foster MD compl eted
--- OUTSIDE RECORDS SUMMARY | 2024-09-19 14:30 | XMS_ITS | Clinical Summary ---
Author Organization [facility] Address [address] [place] [address] Care Team Providers Care Destination Coordinator Name Role Phone Tong Arzate MD Primary Care Provider Allergies No known active allergies Medications lovastatin [...] on file Sexual Orientation Not on file Obstetrics History Last Filed Vital Signs Vital Sign Reading Time Taken Comments Blood Pressure 138/64 08/03/2018 9:59 AM BRICK KILN WORKER Pulse - - Temperature - - Respiratory Rate - - Oxygen Saturation - - Inhaled Oxygen Concentration - - Weight 115.1 kg (253 lb 12.8 oz) 08/03/2018 9:59 AM BRICK KILN WORKER Height 190.5 cm (6' 3 ) 08/03/2018 9:59 AM BRICK KILN WORKER Body Mass Index 31.72 08/03/2018 9:59 AM BRICK KILN WORKER Plan of Treatment Not on file Insurance [employer] Care Teams Destination Coordinator Relationship Specialty Start Date End Date Tong Arzate MD PCP - General 08/03/18
== END 2024-09-19 13:29 | disposition home or self-care (01) ==
PROVIDERS: PCP Internal Medicine; Visit Provider Internal Medicine
DX: M25.521 Pain in right elbow (principal); M25.511 Pain in right shoulder; M25.552 Pain in left hip
CPT/HCPCS: 73030; 73070; 73502

== ENCOUNTER 2025-07-26 17:55 | Inpatient (IN) | payer MEDICARE, SELFPAY ==
--- NOTE | ~2025-07-26 | XR_ITS ---
EXAMINATION: XR foot RT min 3V DATE: 07/26/2025 19:47 INDICATION: Right toe infection. Possible osteomyelitis. TECHNIQUE: 3 views of right foot including dose were obtained. COMPARISON: None. FINDINGS: Significant soft tissue swelling of big toe. No gas bubbles are seen. No plain radiographic evidence of osteomyelitis of the big toe. 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 IMPRESSION: 1. Diffuse soft tissue swelling of big toe noted. 2. No plain radiographic evidence of osteomyelitis. Osteoarthritis as mentioned above. Clinical suspicion of osteomyelitis is significant, additional evaluation with MRI or three-phase nuclear bone scan may be considered. Reviewed, dictated and finalized at location T. E INSTRUCTOR IMPRESSION: 1. Diffuse soft tissue swelling of big toe noted. 2. No plain radiographic evidence of osteomyelitis. Osteoarthritis as mentioned above. Clinical suspicion of osteomyelitis is significant, additional evaluati on with MRI or three-phase nuclear bone scan may be considered.
--- NOTE | ~2025-07-26 | MR_ITS ---
EXAMINATION: MR foot RT wo/w con DATE: 07/27/2025 15:42 INDICATION: Right great toe wound. TECHNIQUE: Magnetic resonance imaging (MRI) of the right foot was performed without and with 20 mL MultiHance intravenous contrast. COMPARISON: Right foot radiographs 07/26/2025 FINDINGS: Alignment is normal. No fracture. There is no decreased T1-weighted signal intensity in the bone marrow to suggest osteomyelitis. There is severe osteoarthritis of first metatarsophalangeal joint and variable osteoarthritis of the interphalangeal joints. There is mild to moderate osteoarthritis of some of the midfoot joints. Lisfranc ligament is intact. There is widespread soft tissue edema. IMPRESSION: 1. No evidence of osteomyelitis. Reviewed, dictated and finalized at location E. ING TECHNICIAN
[2025-07-26 18:09] VITALS: BP 140/61; PULSE 94; RESP 20; TEMP 37.4; O2SAT 98
[2025-07-26 19:16] VITALS: BP 136/74; PULSE 90; RESP 21
--- NOTE | 2025-07-26 19:36 | ED.LOWEXIN ---
HPI - Extremity Injury (Lower) General Chief Complaint: Extremity Injury, Lower Stated Complaint: got a bad toe Time Seen by Provider: 07/26/25 19:08 Source: patient Mode of arrival: ambulatory Limitations: no limitations History of Present Illness HPI Narrative: This is a an 85-year-old male with history of diabetes, hypertension who presents to the ED for toe wound. Patient states that for the past week, he has noticed a wound to his right great toe. He does not take his toes regularly. Today, noticed some swelling to his leg prompting them to come to the ED for for evaluation. Patient denies fevers, chills, chest pain, shortness of breath, nausea vomiting. Related Data Home Medications ?Medication ?Instructions ?Recorded ?Confirmed ?Last Taken ?Type carvedilol 3.125 mg tablet 3.125 mg PO BID 07/26/25 07/27/25 Unknown History duloxetine 60 mg capsule,delayed 60 mg PO BID 07/26/25 07/27/25 Unknown History release glipizide 10 mg tablet 10 mg PO BID 07/26/25 07/27/25 Unknown History lisinopril 10 mg tablet 10 mg PO BID 07/26/25 07/27/25 Unknown History metformin 1,000 mg tablet 1,000 mg PO BID 07/26/25 07/27/25 Unknown History semaglutide 0.25 mg or 0.5 mg (2 0.25 mg subcut WEEKLY 07/26/25 07/27/25 Unknown History mg/3 mL) subcutaneous pen injector (Ozempic) sitagliptin phosphate 100 mg 100 mg PO DAILY 07/26/25 07/27/25 Unknown History tablet (Januvia) Allergies Allergy/AdvReac Type Severity Reaction Status Date / Time No Known Allergies Allergy Unknown Verified 07/27/25 00:37 Review of Systems Review of Systems: Gen.: Denies fevers or chills Eyes: Denies eye pain or visual change ENT: Denies congestion Respiratory: Denies shortness of breath or cough CV: Denies chest pain or palpitations GI: Denies abdominal pain nausea, emesis or diarrhea denies burning, urgency, frequency or hematuria Musculoskeletal: Denies back pain or muscle pain Neuro: Denies numbness, tingling, weakness or focal weakness Skin: As per HPI Except as documented, all other systems reviewed and negative [facility] Family History Family History Father Family history of malignant neoplasm Social History Social History Smoking status: Never smoker Second hand tobacco smoke exposure: No Alcohol intake: never Substance use: never Lack of Transportation: No Lack of Food: Never True Current Housing: I Have Housing Concerned About Future Housing: No Difficulty Paying Gas/Electric Bills: No Difficulty Paying for Meds: No Currently Unemployed: No Education: High School Diploma/GED Difficulty w/ Childcare or Family Care: No Spiritual care concerns: No Exam Narrative: APPEARANCE: No acute distress, nontoxic, resting in bed EYES: EOMI HEENT: Normocephalic, atraumatic, OMM RESPIRATORY: No respiratory distress Clear to auscultation bilaterally with no rhonchi wheezing or rales. CARDIOVASCULAR: Regular rate and rhythm without murmurs rubs or gallops. ABDOMINAL: Soft, nontender, nondistended, no rebound or guarding MUSCULOSKELETAl: Moves all extremities. 2+ pitting edema to the right lower extremity up to the knee NEURO: Awake and alert. Following commands, speech normal, no focal deficits SKIN:: Callus with a small area of necrosis over the medial aspect of the right great toe with some erythema over the right foot. PSYCHIATRIC: Normal affect/mood, Course Vital Signs Vital signs: Vital Signs Temperature 99.4 F 07/26/25 18:09 Pulse Rate 94 07/26/25 18:09 Respiratory Rate 20 07/26/25 18:09 Blood Pressure 140/61 07/26/25 18:09 Pulse Oximetry 98 07/26/25 18:09 Oxygen Delivery Room Air 07/26/25 18:09 Temperature 97.4 F L 07/26/25 23:36 Pulse Rate 80 07/26/25 23:36 Respiratory Rate 16 07/26/25 23:36 Blood Pressure 136/73 07/26/25 23:36 Pulse Oximetry 97 07/26/25 23:36 Oxygen Delivery Room Air 07/26/25 18:09 [facility] MDM Narrative Medical decision making narrative: 85-year-old male Presenting for right great toe wound. On initial evaluation patient was in no acute distress afebrile, hemodynamic stable. Differentials include but are not limited to: Diabetic foot wound, osteomyelitis, cellulitis, uncontrolled diabetes, electrolyte abnormality Notable exam findings: Callused area to the right great toe with a small area of necrosis central to this with 2+ pitting edema to the right lower extremity up to the knee I personally reviewed the patient's lab result. Notable lab findings: Leukocytosis at 15.5. Mild anemia at 11.3. ESR elevated at 52. CRP elevated at 21.2. Creatinine elevated at 1.78, no prior to compare. Mild hypercalcemia at 10.4. X-ray right foot showed no obvious osteomyelitis. However, history is concerning for diabetic foot wound possible osteomyelitis. Patient was given vanc/Zosyn. I did discuss the case with Dr. Ruelas, orthopedic surgery, who agrees with plan of care and will see the patient as consult. Case was discussed with hospitalist who will admit the patient. Differential Diagnosis Differential Diagnosis: Diabetic foot wound, osteomyelitis, cellulitis, uncontrolled diabetes Lab Data 07/26/25 20:12 07/26/25 20:12 Labs: Lab Results 07/26/25 Range/Units 20:12 WBC 15.5 H (4.5-10.0) K/mm3 RBC 4.05 L (4.6-6.20) M/mm3 Hgb 11.3 L (14.0-18.0) g/dL Hct 35.4 L (42.0-52.0) % MCV 87.4 (80-100) fl MCH 27.9 (26-34) pg MCHC 31.9 L (32-36) g/dl RDW 13.3 (11.5-14.5) % Plt Count 328 (150-375) k/mm3 MPV 10.9 H (7.4-10.4) fl Immature Gran % (Auto) 0.5 (0-0.5) % Neut % (Auto) 82.1 H (45.5-73.1) % Lymph % (Auto) 8.1 L (18.3-44.2) % [place] % (Auto) 8.0 (2.6-8.5) % Eos % (Auto) 1.0 (0-4.4) % Baso % (Auto) 0.3 (0.2-1.2) % Lymph # (Auto) 1.26 (0.9-3.2) K/mm3 [place] # (Auto) 1.2 H (0.1-0.6) K/mm3 Eos # (Auto) 0.2 (0-0.3) K/mm3 Baso # (Auto) 0.0 (0.0-0.1) K/mm3 Abs Immat Gran (auto) 0.07 H (0.00-0.031) K/mm3 Absolute Neuts (auto) 12.7 H (1.3-6.7) K/mm3 Absolute Nucleated RBC 0.000 (0.0-0.012) K/mm3 Nucleated RBC % 0.0 (0.0-0.2) % ESR 52 H (0-20) mm/hr Sodium 134 L (137-145) mmol/L Potassium 4.8 (3.4-5.0) mmol/L Chloride 101 (98-107) mmol/L Carbon Dioxide 27 (22-30) mmol/L Anion Gap 6 (4-12) mmol/L BUN 33 H (9-20) mg/dL Creatinine 1.78 H (0.7-1.3) mg/dL Estim Creat Clear Calc 38 ml/min Estimated GFR 37 L (59 - ) Glucose 191 H (65-110) mg/dL Calcium 10.4 H (8.4-10.2) mg/dL Total Bilirubin 0.9 (0.2-1.3) mg/dL AST 18 (17-59) U/L ALT 15 (6-50) U/L Alkaline Phosphatase 115 (38-126) U/L C-Reactive Protein 21.2 H (<1.0) mg/dL Total Protein 7.7 (6.3-8.2) g/dL Albumin 3.9 (3.5-5.1) g/dL Imaging Data Radiologist's impression: ITS Impressions Foot X-Ray 07/26/25 19:47 IMPRESSION: 1. Diffuse soft tissue swelling of big toe noted. 2. No plain radiographic evidence of osteomyelitis. Osteoarthritis as mentioned above. Clinical suspicion of osteomyelitis is significant, additional evaluation with MRI or three-phase nuclear bone scan may be considered. Discharge Plan Discharge Clinical Impression: Wound of foot, Hypercalcemia, Anemia, Acute hyponatremia, Uncontrolled diabetes mellitus Patient Disposition: Still a Patient Condition: Stable
[2025-07-26] MEDS: SODIUM CHLORIDE 0.9% IV 1,000 ML 999 ML IV CONT ×2 (20:11→21:32)
[2025-07-26 20:19] LABS: Hematocrit 35.4 % (42.0-52.0); Hemoglobin 11.3 g/dL (14.0-18.0); Immature Granulocyte Percent A 0.5 % (0-0.5); Lymphocytes Absolute Auto 1.26 K/mm3 (0.9-3.2); Mean Corpuscular HGB Conc 31.9 g/dl (32-36); Mean Corpuscular Hemoglobin 27.9 pg (26-34); Mean Corpuscular Volume 87.4 fl (80-100); Nucleated Red Blood Cells Absolute Auto 0.000 K/mm3 (0.0-0.012); Nucleated Red Blood Cells Perc 0.0 % (0.0-0.2); Platelet Count Result 328 k/mm3 (150-375); Red Blood Count 4.05 M/mm3 (4.6-6.20); White Blood Count 15.5 K/mm3 (4.5-10.0)
[2025-07-26 20:34] LABS: Alanine Aminotransferase 15 U/L (6-50); Albumin Level 3.9 g/dL (3.5-5.1); Alkaline Phosphatase 115 U/L (38-126); Anion Gap 6 mmol/L (4-12); Aspartate Amino Transferase 18 U/L (17-59); Bilirubin,Total 0.9 mg/dL (0.2-1.3); Blood Urea Nitrogen 33 mg/dL (9-20); Calcium 10.4 mg/dL (8.4-10.2); Carbon Dioxide 27 mmol/L (22-30); Chloride 101 mmol/L (98-107); Estimated CRCL calculation 38 ml/min; Estimated Glomerular Filt Rate 37; Glucose 191 mg/dL (65-110); Potassium 4.8 mmol/L (3.4-5.0); Sodium 134 mmol/L (137-145); Total Protein 7.7 g/dL (6.3-8.2)
[2025-07-26 20:50] LABS: CRP 21.2 mg/dL (<1.0)
[2025-07-26 21:45] VITALS: BP 128/67; PULSE 89; RESP 23
[2025-07-26] MEDS: PIPERACILLIN/TAZOBACTAM SOD 4.5 GM in SODIUM CHLORIDE 0.9% IV 100 ML 200 ML IVPB (22:33)
[2025-07-26] MEDS: VANCOMYCIN 1,250 MG/NS 250 ML 1,250 MG/250 ML BAG 166.67 MG IVPB (22:38)
--- NOTE | 2025-07-26 22:58 | WPCEDHO ---
ED Hand Off Checklist All vitals saved: Yes IV Site documented: Yes All med administrations documented: Yes Triage Note Triage Note Pt to ED via POV with with c 07/26/25 18:09 /o Right sided Big Toe wound on posterior side, unknown of length wound, believe could be around a 1 week. PMH of DMII, last A1c 7.2 and neuropathy. Allergies No Known Allergies Allergy (Unknown, Verified 07/26/25 18:09) Family History (Last Reviewed 07/26/25 @ 19:37 by Bhavesh Youngblood DO) Father Family history of malignant neoplasm Active Medications including assessments/comments Vancomycin HCl (Vancomycin 1,250 Mg/Ns 250 Ml) 1,250 mg in 250 mls @ 166.667 mls/hr IVPB ONCE ONE Stop: 07/26/25 23:29 Last Admin: 07/26/25 22:38 Dose: 166.67 mls/hr Documented By: ADILIA Infusion/Titration Document 07/26/25 22:38 ADILIA (Rec: 07/26/25 22:38 ADILIA [id number]) Intake IV Site Peripheral Access Left Arm, Upper Container Volume 250 Waste Amount 0 Dosing Infusion Rate 166.67 Increase/Decrease Started Elapsed Time Elapsed Time ( 0m minutes) Administered/Completed Medications Discontinued Medications Sodium Chloride (Normal Saline Iv) 1,000 mls @ 999 mls/hr IV CONT .Q1H1M STA Stop: 07/26/25 20:36 Last Infusion: 07/26/25 21:14 Dose: Infused Documented By: Admin: 07/26/25 20:11 Dose: 999 mls/hr Documented By: ADILIA Sodium Chloride (Normal Saline Iv) 1,000 mls @ 999 mls/hr IV CONT .Q1H1M STA Stop: 07/26/25 21:36 Last Infusion: 07/26/25 22:49 Dose: Infused Documented By: Admin: 07/26/25 21:32 Dose: 999 mls/hr Documented By: MARIA R Piperacillin Sod/Tazobactam (Sod 4.5 gm/ Sodium Chloride) 100 mls @ 200 mls/hr IVPB ONCE STA Stop: 07/26/25 21:15 Last Admin: 07/26/25 22:33 Dose: 200 mls/hr Documented By: ADILIA Interventions/Assessments IV / Saline Lock, Insert Start: 07/26/25 17:55 Freq: Status: Active Protocol: Document 07/26/25 22:36 DJW (Rec: 07/26/25 22:36 DJW [id number]) IV Assessment Peripheral Access Right Wrist IV Catheter Access Initiated IV Insertion Date 07/26/25 IV Insertion Time 22:36 Catheter Gauge 20 IV Insertion 1 Attempts IV Site Assessment WNL IV Care and WNL Maintenance Last Vital Signs Temperature 99.4 F 07/26/25 18:09 Pulse Rate 89 07/26/25 21:45 Respiratory Rate 23 H 07/26/25 21:45 Pulse Oximetry 98 07/26/25 18:09 Blood Pressure 128/67 07/26/25 21:45 Blood Pressure Mean 87 07/26/25 21:45 Blood Pressure Position Sitting 07/26/25 18:09 Oxygen Delivery Room Air 07/26/25 18:09 Weight 112 kg 07/26/25 18:09 Last Result - Abnormals Only WBC 15.5 K/mm3 (4.5-10.0) H 07/26/25 20:12 RBC 4.05 M/mm3 (4.6-6.20) L 07/26/25 20:12 Hgb 11.3 g/dL (14.0-18.0) L 07/26/25 20:12 Hct 35.4 % (42.0-52.0) L 07/26/25 20:12 MCHC 31.9 g/dl (32-36) L 07/26/25 20:12 MPV 10.9 fl (7.4-10.4) H 07/26/25 20:12 Neut % (Auto) 82.1 % (45.5-73.1) H 07/26/25 20:12 Lymph % (Auto) 8.1 % (18.3-44.2) L 07/26/25 20:12 [place] # (Auto) 1.2 K/mm3 (0.1-0.6) H 07/26/25 20:12 Abs Immat Gran (auto) 0.07 K/mm3 (0.00-0.031) H 07/26/25 20:12 Absolute Neuts (auto) 12.7 K/mm3 (1.3-6.7) H 07/26/25 20:12 ESR 52 mm/hr (0-20) H 07/26/25 20:12 Sodium 134 mmol/L (137-145) L 07/26/25 20:12 BUN 33 mg/dL (9-20) H 07/26/25 20:12 Creatinine 1.78 mg/dL (0.7-1.3) H 07/26/25 20:12 Estimated GFR 37 (59-) L 07/26/25 20:12 Glucose 191 mg/dL (65-110) H 07/26/25 20:12 Calcium 10.4 mg/dL (8.4-10.2) H 07/26/25 20:12 C-Reactive Protein 21.2 mg/dL (<1.0) H 07/26/25 20:12 Most Recent Suicide Severity Rating Suicide Severity Rating NO RISK INDICATED 07/26/25 18:09
[2025-07-26] MEDS: metroNIDAZOLE 500 MG/ISO 100ML 500 MG/100 ML BAG 100 MG IVPB (23:10)
[2025-07-26 23:20] VITALS: BP 132/67; PULSE 85; RESP 22; TEMP 37; O2SAT 100
[2025-07-26 23:36] VITALS: BP 136/73; PULSE 80; RESP 16; TEMP 36.3; O2SAT 97
--- NOTE | 2025-07-26 23:41 | WNDPHOTO ---
PHOTO ONLY - See Nursing Notes and/ or assessments for documentation.
[2025-07-27] VITALS (8 sets, daily range): BP systolic 116–153; BP diastolic 45–83; PULSE 59–86; RESP 16–19; TEMP 35.7–36.1; O2SAT 95–99; BMI 30.4
--- NOTE | 2025-07-27 00:04 | ADMGEN ---
This patient, Mahesh Maldonado Jr., was admitted to [facility] Surg Room 306-01. Patient/family oriented to hospital policies and general routines including ID bracelet, bed and alarms, visiting hours, pain management, procedures, bathroom and other care routines, personal items, smoking policy, room service/diet, and visiting hours. Information on how to activate the Rapid Response Team has been discussed. Patient/Family are encouraged to report perceived risks to care and to ask questions if they do not understand what they are told or what they should do.
[2025-07-27] MEDS: CEFEPIME 1 GM in SODIUM CHLORIDE 0.9% IV 50 ML 100 ML IVPB ×3 (01:13→22:45)
[2025-07-27] MEDS: VANCOMYCIN 1,250 MG/NS 250 ML 1,250 MG/250 ML BAG 166.67 MG IVPB (01:18)
[2025-07-27] MEDS: metroNIDAZOLE 500 MG/ISO 100ML 500 MG/100 ML BAG 100 MG IVPB ×3 (05:52→20:33)
[2025-07-27 06:06] LABS: Hematocrit 30.7 % (42.0-52.0); Hemoglobin 9.6 g/dL (14.0-18.0); Immature Granulocyte Percent A 0.7 % (0-0.5); Lymphocytes Absolute Auto 1.20 K/mm3 (0.9-3.2); Mean Corpuscular HGB Conc 31.3 g/dl (32-36); Mean Corpuscular Hemoglobin 28.2 pg (26-34); Mean Corpuscular Volume 90.0 fl (80-100); Nucleated Red Blood Cells Absolute Auto 0.000 K/mm3 (0.0-0.012); Nucleated Red Blood Cells Perc 0.0 % (0.0-0.2); Platelet Count Result 239 k/mm3 (150-375); Red Blood Count 3.41 M/mm3 (4.6-6.20); White Blood Count 12.1 K/mm3 (4.5-10.0)
[2025-07-27 06:28] LABS: Alanine Aminotransferase 11 U/L (6-50); Albumin Level 3.1 g/dL (3.5-5.1); Alkaline Phosphatase 98 U/L (38-126); Anion Gap 2 mmol/L (4-12); Aspartate Amino Transferase 13 U/L (17-59); Bilirubin,Total 0.8 mg/dL (0.2-1.3); Blood Urea Nitrogen 26 mg/dL (9-20); Calcium 9.6 mg/dL (8.4-10.2); Carbon Dioxide 25 mmol/L (22-30); Chloride 107 mmol/L (98-107); Estimated CRCL calculation 39 ml/min; Estimated Glomerular Filt Rate 39; Glucose 119 mg/dL (65-110); Potassium 4.4 mmol/L (3.4-5.0); Sodium 134 mmol/L (137-145); Total Protein 6.1 g/dL (6.3-8.2)
--- NOTE | 2025-07-27 06:36 | P.HP_ITS ---
H&P: HPI History of Present Illness Date/Time: 07/27/25 06:36 Chief Complaint: Right Toe wound Narrative: 85-year-old male with a past medical history of essential hypertension and type 2 diabetes mellitus measures to oral medications with associated peripheral neuropathy who presented to the ER via private vehicle due to wound to his right great toe. The patient reports that he does not feel much in his feet due to his neuropathy. He does get up in ambulate at night without any socks or shoes on. He does not know if he had any injury to the foot. He states that due to his mobility he can not really look at the bottom of his feet. He noticed about a week ago that is toe was getting swollen and is foot and leg were getting red. He had his look at the toe the next day and she told him that there was a wound there and they placed some triple antibiotic ointment on the wound. He called his benefits consulting analyst Dr. Sue and he has an appointment scheduled for Tuesday. But he noticed increased swelling and erythema to his leg so he came to the ER for evaluation. He states that the toe is only mildly uncomfortable with manipulation. He has not noticed any drainage from the toe. He has not had any fevers or chills. He has had some decreased appetite which he attributed to Ozempic use. He reports that his glucoses are well controlled any checks his fasting blood sugars frequently and they are usually in the 120s to 130s. On labs in the ER as noted the patient had elevated creatinine. He denies a known history of chronic kidney disease. He has not had any changes in urinary frequency or urgency. He feels like he is emptying his bladder completely. He does not follow with a mobile home installer. Review of Systems 2 Review of Systems: 12 systems were reviewed with pertinent positives and negatives per HPI. Except as documented in the HPI, all other systems were reviewed and are negative. [facility] Past Medical History Medical History (Updated 07/27/25 @ 07:44 by Tatyana Taylor DO) Essential hypertension Diabetic peripheral neuropathy Type 2 diabetes mellitus Surgical History Surgical History (Updated 07/27/25 @ 07:16 by Tatyana Taylor DO) No history of previous surgery Family History Family History Father Family history of malignant neoplasm Social History Social History (Updated 07/27/25 @ 07:24 by Tatyana Taylor DO) Social History: The patient lives with his of 64 years. They raised 1 daughter. He is a lifelong nonsmoker. He used to occasionally drink alcohol but quit drinking altogether approximately 30 years ago. 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 Code status: Full code (he would not want long-term ventilator support or G- tube) Healthcare power of defense attorney: Chacha Meyers (daughter) Smoking status: Never smoker Second hand tobacco smoke exposure: No Alcohol intake: never Substance use: never Lack of Transportation: No Lack of Food: Never True Current Housing: I Have Housing Concerned About Future Housing: No Difficulty Paying Gas/Electric Bills: No Difficulty Paying for Meds: No Currently Unemployed: No Education: High School Diploma/GED Difficulty w/ Childcare or Family Care: No Spiritual care concerns: No Meds Home Medications and Allergies Home Medications ?Medication ?Instructions ?Recorded ?Confirmed ?Type carvedilol 3.125 mg tablet 3.125 mg PO BID 07/26/25 History duloxetine 60 mg capsule,delayed 60 mg PO BID 07/26/25 07/27/25 History release glipizide 10 mg tablet 10 mg PO BID 07/26/25 History lisinopril 10 mg tablet 10 mg PO BID 07/26/25 History metformin 1,000 mg tablet 1,000 mg PO BID 07/26/25 History semaglutide 0.25 mg or 0.5 mg (2 0.25 mg subcut WEEKLY 07/26/25 07/27/25 History mg/3 mL) subcutaneous pen injector (Ozempic) sitagliptin phosphate 100 mg 100 mg PO DAILY 07/26/25 07/27/25 History tablet (Januvia) Allergies Allergy/AdvReac Type Severity Reaction Status Date / Time No Known Allergies Allergy Unknown Verified 07/27/25 00:37 Vital Signs Vital Signs - 24 hr 07/26/25 18:09 07/26/25 19:16 07/26/25 21:45 Temperature 99.4 F Pulse Rate 94 90 89 Respiratory Rate 20 21 H 23 H Blood Pressure 140/61 136/74 128/67 Pulse Oximetry 98 Oxygen Delivery Room Air 07/26/25 23:20 07/26/25 23:36 07/27/25 05:39 Temperature 98.6 F 97.4 F L 97.0 F L Pulse Rate 85 80 79 Respiratory Rate 22 H 16 16 Blood Pressure 132/67 136/73 116/52 L Pulse Oximetry 100 97 98 Oxygen Delivery Exam 2 Narrative: Weight 107.5 kg BMI 30.4 Const: Other: No acute distress, obese, appears stated age HENMT: Other: Mucous membranes are moist, no oral pharyngeal erythema Eyes: Other: Bilateral lens implants noted, positive conjunctival pallor, no scleral icterus Neck: Other: No JVD, no lymphadenopathy Resp: Other: Clear to auscultation bilaterally, no increased work of breathing Cardio: Other: Regular rate, regular rhythm, 2+ bilateral radial pedal pulses GI: Other: Soft, nontender, nondistended, positive bowel sounds Skin: Other: No pallor, non jaundice, erythema to the right ankle and anterior mancini with chronic venous stasis changes and mild increased warmth compared to left, chronic venous stasis changes noted to the left leg as well but no associated erythema Neuro: Other: Alert oriented x4, speech is clear, no facial asymmetry no localizing neurologic deficits noted during the course of conversation, chronic paresthesias in stocking and glove distribution consistent with history of neuropathy Extrem: Other: No clubbing, no cyanosis, edema of the right foot and ankle, ulcer to the plantar surface of the right great toe no active drainage but mild foul odor, underlying skin appears dark and black consistent with underlying necrosis, there is a thick callus to the lateral surface of the toe, the patient has marked decreased sensation to the toe erythema of the toe extending almost circumferential, he also has a small laceration/cracked to the tip of the left great toe with a small area of scab but no surrounding erythema or warmth to suggest infection of the left foot Psych: Other: Appropriate mood and affect, pleasant and cooperative, judgment and insight intact Results Labs Labs: Laboratory Tests 07/27/25 05:46 07/27/25 05:46 07/26/25 07/26/25 07/27/25 20:12 21:56 00:08 WBC 15.5 H RBC 4.05 L Hgb 11.3 L Hct 35.4 L MCV 87.4 MCH 27.9 MCHC 31.9 L RDW 13.3 Plt Count 328 MPV 10.9 H Immature Gran % (Auto) 0.5 Neut % (Auto) 82.1 H Lymph % (Auto) 8.1 L [place] % (Auto) 8.0 Eos % (Auto) 1.0 Baso % (Auto) 0.3 Lymph # (Auto) 1.26 [place] # (Auto) 1.2 H Eos # (Auto) 0.2 Baso # (Auto) 0.0 Abs Immat Gran (auto) 0.07 H Absolute Neuts (auto) 12.7 H Absolute Nucleated RBC 0.000 Nucleated RBC % 0.0 ESR 52 H Sodium 134 L Potassium 4.8 Chloride 101 Carbon Dioxide 27 Anion Gap 6 BUN 33 H Creatinine 1.78 H Estim Creat Clear Calc 38 Estimated GFR 37 L Glucose 191 H POC Capillary Glucose 154 H Hemoglobin A1c Lactic Acid 1.7 Calcium 10.4 H Iron TIBC % Saturation Ferritin Total Bilirubin 0.9 AST 18 ALT 15 Alkaline Phosphatase 115 C-Reactive Protein 21.2 H Total Protein 7.7 Albumin 3.9 Vitamin B12 Folate 07/27/25 05:46 WBC 12.1 H RBC 3.41 L Hgb 9.6 L Hct 30.7 L MCV 90.0 MCH 28.2 MCHC 31.3 L RDW 13.4 Plt Count 239 MPV 10.3 Immature Gran % (Auto) 0.7 H Neut % (Auto) 77.6 H Lymph % (Auto) 9.9 L [place] % (Auto) 9.4 H Eos % (Auto) 2.0 Baso % (Auto) 0.4 Lymph # (Auto) 1.20 [place] # (Auto) 1.1 H Eos # (Auto) 0.2 Baso # (Auto) 0.1 Abs Immat Gran (auto) 0.08 H Absolute Neuts (auto) 9.4 H Absolute Nucleated RBC 0.000 Nucleated RBC % 0.0 ESR Sodium 134 L Potassium 4.4 Chloride 107 Carbon Dioxide 25 Anion Gap 2 L BUN 26 H Creatinine 1.70 H Estim Creat Clear Calc 39 Estimated GFR 39 L Glucose 119 H POC Capillary Glucose Hemoglobin A1c Pending Lactic Acid Calcium 9.6 Iron 23 L TIBC 197 L % Saturation 12 L Ferritin Pending Total Bilirubin 0.8 AST 13 L ALT 11 Alkaline Phosphatase 98 C-Reactive Protein Total Protein 6.1 L Albumin 3.1 L Vitamin B12 Pending Folate Pending Impressions Foot X-Ray 07/26/25 19:47 IMPRESSION: 1. Diffuse soft tissue swelling of big toe noted. 2. No plain radiographic evidence of osteomyelitis. Osteoarthritis as mentioned above. Clinical suspicion of osteomyelitis is significant, additional evaluation with MRI or three-phase nuclear bone scan may be considered. Quality VTE Prophylaxis VTE prophylaxis: pharmacologic ordered (Lovenox 40 mg subQ daily.) Assessment and Plan Assessment and plan (1) Diabetic foot ulcer: Qualifiers: Diabetic foot ulcer location: toe Diabetes mellitus type: type 2 L aterality: right Non-pressure ulcer stage: with necrosis of muscle Qualified Code(s): E11.621 - Type 2 diabetes mellitus with foot ulcer; L97.513 - Non- pressure chronic ulcer of other part of right foot with necrosis of muscle Code(s): E11.621 - Type 2 diabetes mellitus with foot ulcer; L97.509 - Non-pressure chronic ulcer of other part of unspecified foot with unspecified severity Status: Acute (2) Cellulitis of toe of right foot: Code(s): L03.031 - Cellulitis of right toe Status: Acute (3) Renal failure: Qualifiers: Renal failure chronicity: unspecified chronicity Qualified Code(s): N19 - Unspecified kidney failure Code(s): N19 - Unspecified kidney failure Status: Acute (4) Hypercalcemia: Code(s): E83.52 - Hypercalcemia Status: Acute (5) Acute hyponatremia: Code(s): E87.1 - Hypo-osmolality and hyponatremia Status: Acute (6) Type 2 diabetes mellitus with hyperglycemia, without long-term current use of insulin: Code(s): E11.65 - Type 2 diabetes mellitus with hyperglycemia Status: Acute (7) Anemia: Qualifiers: Anemia type: unspecified type Qualified Code(s): D64.9 - Anemia, unspecified Code(s): D64.9 - Anemia, unspecified Status: Acute Plan Patient has a diabetic ulcer to the plantar surface of the right great toe with underlying lying necrosis suggesting gangrene with elevated inflammatory markers. Patient been started on empiric antibiotic therapy with cefepime and vancomycin. The patient wanted his benefits consulting analyst consulted but is benefits consulting analyst does not have privileges at our facility. Subsequently General surgery has been consulted. Blood cultures have been obtained and are pending. Will continue home glipizide and Januvia but will hold home metformin. Will place patient on low-dose sliding scale insulin Accu-Cheks a.c. HS. Patient did have some mild anemia on admission and repeat CBC this morning demonstrated a drop in hemoglobin. Will add ferritin, TIBC B12 folic acid in TSH for further evaluation. Patient does have longstanding diabetes but he reports good glycemic control and he is currently euglycemic at the time my evaluation but was mildly hyperglycemic on presentation to the ER. Hyperglycemia is likely associated with acute infection. Will add moderate dose sliding scale insulin with Accu-Cheks a.c. HS and hypoglycemia protocol as needed. Patient does have evidence of renal disease. Given relatively normal appearance of the remainder of the patient's electrolyte panel I suspect he has at least some component of chronic kidney disease that he is unaware of. Patient did receive 2 L of IV fluid bolus in the ER. Repeat a BMP this a.m. demonstrated stable creatinine but resolution of hypercalcemia suggesting there is some component of mild dehydration. The patient does have some hyponatremia but this is mild and stable and very well may be chronic. MEDICAL DECISION MAKING NARRATIVE -Spoke with the ED provider in detail regarding patient's evaluation, workup and management -Patient seen and examined at bedside -Collaborated with patient's nurse at the bedside in detail and addressed all concerns -Labs, electrolytes, radiology, investigations and test results personally reviewed and interpreted unless otherwise specified -ED/Consult/Nursing/Ancilliary notes on the chart reviewed and appreciated -applicable past medical records and labs were reviewed and unless stated otherwise. -Spoke with patient at bedside and diagnosis, plan of care was discussed and questions answered. Hospitalist [facility] Advance Care Plan I have confirmed that the patient's Advanced Care Plan is present, code status is documented, or surrogate decision maker is listed in patient medical record.: Yes Medication Reconciliation I have utilized all available resources to obtain, update and review the patients current medications (includes all prescriptions, OTC, herbals, cannabis, and nutritional supplements).: Yes
[2025-07-27 07:26] LABS: Iron 23 ug/dL (49-181)
[2025-07-27 07:35] LABS: Percent Iron Saturation 12 % (20-50)
[2025-07-27 07:49] LABS: Hemoglobin A1C 7.6 % (<5.7)
[2025-07-27 08:07] LABS: Ferritin 121.00 ng/mL (11.1-264)
[2025-07-27] MEDS: ENOXAPARIN 40 MG/0.4 ML SYRINGE SUB-Q (08:36)
[2025-07-27] MEDS: DULoxetine HCL 60 MG CAPSULE.DR PO ×2 (08:36→16:24)
[2025-07-27 08:48] LABS: Vitamin B12 233.0 pg/mL (239-931)
[2025-07-27] MEDS: SODIUM CHLORIDE 0.9% IV 1,000 ML 100 ML IV CONT ×2 (09:00→18:41)
--- NOTE | 2025-07-27 09:35 | PM.IMPN2 ---
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 Code(s): E11.621 - Type 2 diabetes mellitus with foot ulcer; L97.509 - Non-pressure chronic ulcer of other part of unspecified foot with unspecified severity Status: Acute Assessment and Plan: patient has a diabetic ulcer to the plantar surface of the right great toe with underlying necrosis suggesting gangrene with elevated inflammatory markers, patient also has surrounding cellulitis continue IV vancomycin, IV cefepime and IV Flagyl general surgery consulted f/u blood cultures order MRI of right foot to rule out osteomyelitis AM labs (2) Cellulitis of toe of right foot: Code(s): L03.031 - Cellulitis of right toe Status: Acute Assessment and Plan: see above (3) Renal failure: Qualifiers: Renal failure chronicity: unspecified chronicity Qualified Code(s): N19 - Unspecified kidney failure Code(s): N19 - Unspecified kidney failure Status: Acute Assessment and Plan: s/p IV fluids avoid nephrotoxics AM labs (4) Hypercalcemia: Code(s): E83.52 - Hypercalcemia Status: Acute Assessment and Plan: suspect due to dehydration s/p IV fluids AM labs (5) Acute hyponatremia: Code(s): E87.1 - Hypo-osmolality and hyponatremia Status: Acute Assessment and Plan: suspect due to dehydration s/p IV fluids AM labs (6) Type 2 diabetes mellitus with hyperglycemia, without long-term current use of insulin: Code(s): E11.65 - Type 2 diabetes mellitus with hyperglycemia Status: Acute Assessment and Plan: accu checks avoid hypoglycemia hold home metformin, glipizide and Januvia SSI monitor blood sugars and adjust as indicated (7) Anemia: Qualifiers: Anemia type: unspecified type Qualified Code(s): D64.9 - Anemia, unspecified Code(s): D64.9 - Anemia, unspecified Status: Acute Assessment and Plan: iron studies AM labs Medical Record Review I have reviewed the following patient records and this information was taken into consideration when formulating the assessment and plan.: previous labs, previous ER visits and previous hospitalizations Subjective Date/time seen: 07/27/25 09:35 Interval history: Patient seen for follow up visit. H&P reviewed and agree with current plan. Patient and family present during visit. Patient denies acute pain. Patient tolerating IV antibiotics. Orthopedic surgery consult pending. Wound care consult pending. Review of Systems Review of Systems: All systems reviewed & are unremarkable except as noted in HPI and below Exam Const: General: comfortable and no acute distress HENMT: Face/Nose/Sinus: Normal nares present Mouth: Yes moist mucous membranes Eyes: General: appearance normal, both eyes and all related structures Sclera: sclerae normal Neck: Neck: supple Resp: Effort & Inspection: normal respiratory effort Auscultation: clear to auscultation bilaterally Cardio: Rate: regular rate Rhythm: regular rhythm GI: GI Palp: Yes Soft to palpation Auscultation: normal bowel sounds Skin: Other: erythema to right ankle, foot and anterior mancini with some warmth. wound to right great toe Neuro: Speech: normal speech Motor exam (neuro): 5/5 motor strength present throughout Extrem: Other: 1+ edema RLE Psych: Mental Status: mental status grossly normal Affect: normal affect Objective Data Vital Signs Vital Signs: Vital Signs - 24 hr 07/26/25 18:09 07/26/25 19:16 07/26/25 21:45 Temperature 99.4 F Pulse Rate 94 90 89 Respiratory Rate 20 21 H 23 H Blood Pressure 140/61 136/74 128/67 Pulse Oximetry 98 Oxygen Delivery Room Air 07/26/25 23:20 07/26/25 23:36 07/27/25 05:39 Temperature 98.6 F 97.4 F L 97.0 F L Pulse Rate 85 80 79 Respiratory Rate 22 H 16 16 Blood Pressure 132/67 136/73 116/52 L Pulse Oximetry 100 97 98 Oxygen Delivery 07/27/25 08:00 07/27/25 08:35 Temperature 96.3 F L Pulse Rate 75 60 Respiratory Rate 18 Blood Pressure 150/78 H Pulse Oximetry 99 Oxygen Delivery Intake/Output Intake/Output: Intake & Output 07/24/25 07/25/25 07/26/25 07/27/25 23:59 23:59 23:59 23:59 Intake Total 2100 250 Output Total 300 Balance 2100 -50 Meds/Results Medications: Active Medications Generic Name Dose Route Start Last Admin Trade Name Freq PRN Reason Stop Dose Admin Carvedilol 3.125 mg 07/27/25 09:00 07/27/25 08:35 Carvedilol 3.125 Mg Tablet PO 3.125 mg Q12HR VELASQUEZ Administration Dextrose 12.5 gm 07/27/25 07:03 Dextrose 50% 25 Gm/50 Ml Syringe IV PUSH PRN PRN Hypoglycemia Protocol Duloxetine HCl 60 mg 07/27/25 09:00 07/27/25 08:36 Duloxetine Hcl 60 Mg Capsule.Dr PO 60 mg BID VELASQUEZ Administration Enoxaparin Sodium 40 mg 07/27/25 09:00 07/27/25 08:36 Enoxaparin 40 Mg/0.4 Ml Syringe SUB-Q 40 mg DAILY VELASQUEZ Administration Glucagon 1 mg 07/27/25 07:03 Glucagon For Inj 1 Mg Vial IM PRN PRN Hypoglycemia Protocol Glucose 15 gm 07/27/25 07:03 Glucose Oral Gel 15 Gm Of Glucse In 37.5 Gm Tube PO PRN PRN Hypoglycemia Protocol Metronidazole 500 mg in 100 mls @ 100 mls/hr 07/26/25 22:00 07/27/25 05:52 Flagyl 500 Mg/Iso Soln 100 Ml IVPB 100 mls/hr Q8H VELASQUEZ Administration Cefepime HCl 1 gm/ Sodium 50 mls @ 100 mls/hr 07/26/25 23:00 07/27/25 01:45 Chloride IVPB Infused Q12H VELASQUEZ Infusion Vancomycin HCl 1,500 mg in 500 mls @ 250 mls/hr 07/28/25 10:00 Vancomycin 1,500 Mg/Ns 500 Ml IVPB Q36H VELASQUEZ Sodium Chloride 1,000 mls @ 100 mls/hr 07/27/25 07:05 07/27/25 08:35 Normal Saline Iv IV CONT 07/28/25 03:04 100 mls/hr .Q10H VELASQUEZ Administration Dextrose 1,000 mls @ 100 mls/hr 07/27/25 07:03 Dextrose 5% 1,000 Ml IVPB PRN PRN Hypoglycemia Protocol Insulin Aspart 3 - 6 units 07/27/25 08:00 07/27/25 08:29 Insulin Aspart (*Bkc) 100 Units/Ml SUB-Q Not Given TIDWM VELASQUEZ Protocol Radiology Results: ITS Impressions Foot X-Ray 07/26/25 19:47 IMPRESSION: 1. Diffuse soft tissue swelling of big toe noted. 2. No plain radiographic evidence of osteomyelitis. Osteoarthritis as mentioned above. Clinical suspicion of osteomyelitis is significant, additional evaluation with MRI or three-phase nuclear bone scan may be considered. Labs Labs: Laboratory Results - last 24 hr 07/26/25 07/26/25 07/27/25 20:12 21:56 00:08 WBC 15.5 H RBC 4.05 L Hgb 11.3 L Hct 35.4 L MCV 87.4 MCH 27.9 MCHC 31.9 L RDW 13.3 Plt Count 328 MPV 10.9 H Immature Gran % (Auto) 0.5 Neut % (Auto) 82.1 H Lymph % (Auto) 8.1 L [place] % (Auto) 8.0 Eos % (Auto) 1.0 Baso % (Auto) 0.3 Lymph # (Auto) 1.26 [place] # (Auto) 1.2 H Eos # (Auto) 0.2 Baso # (Auto) 0.0 Abs Immat Gran (auto) 0.07 H Absolute Neuts (auto) 12.7 H Absolute Nucleated RBC 0.000 Nucleated RBC % 0.0 ESR 52 H Sodium 134 L Potassium 4.8 Chloride 101 Carbon Dioxide 27 Anion Gap 6 BUN 33 H Creatinine 1.78 H Estim Creat Clear Calc 38 Estimated GFR 37 L Glucose 191 H POC Capillary Glucose 154 H Hemoglobin A1c Lactic Acid 1.7 Calcium 10.4 H Iron TIBC % Saturation Ferritin Total Bilirubin 0.9 AST 18 ALT 15 Alkaline Phosphatase 115 C-Reactive Protein 21.2 H Total Protein 7.7 Albumin 3.9 Vitamin B12 Folate 07/27/25 07/27/25 05:46 08:27 WBC 12.1 H RBC 3.41 L Hgb 9.6 L Hct 30.7 L MCV 90.0 MCH 28.2 MCHC 31.3 L RDW 13.4 Plt Count 239 MPV 10.3 Immature Gran % (Auto) 0.7 H Neut % (Auto) 77.6 H Lymph % (Auto) 9.9 L [place] % (Auto) 9.4 H Eos % (Auto) 2.0 Baso % (Auto) 0.4 Lymph # (Auto) 1.20 [place] # (Auto) 1.1 H Eos # (Auto) 0.2 Baso # (Auto) 0.1 Abs Immat Gran (auto) 0.08 H Absolute Neuts (auto) 9.4 H Absolute Nucleated RBC 0.000 Nucleated RBC % 0.0 ESR Sodium 134 L Potassium 4.4 Chloride 107 Carbon Dioxide 25 Anion Gap 2 L BUN 26 H Creatinine 1.70 H Estim Creat Clear Calc 39 Estimated GFR 39 L Glucose 119 H POC Capillary Glucose 118 H Hemoglobin A1c 7.6 H Lactic Acid Calcium 9.6 Iron 23 L TIBC 197 L % Saturation 12 L Ferritin 121.00 Total Bilirubin 0.8 AST 13 L ALT 11 Alkaline Phosphatase 98 C-Reactive Protein Total Protein 6.1 L Albumin 3.1 L Vitamin B12 233.0 L Folate 11.7 Quality VTE Prophylaxis VTE prophylaxis: pharmacologic ordered (Lovenox 40 mg subQ daily.)
[2025-07-27] MEDS: ACETAMINOPHEN 500 MG TABLET 1000 MG PO (12:41)
--- NOTE | 2025-07-27 18:42 | PC.NURSE ---
Ns was ordered for 2000mL at 100ml/hr. scanned on 1000ml bag this am during med pass. Could not get second bag to scan when the first bag was finished. Attempted to undo morning administration and scan both bags now at [id number]. could not get that to work on the mar either. Called pharmacy and they put in a separate 1000ml order fot the second bag.
[2025-07-28] VITALS (9 sets, daily range): BP systolic 122–164; BP diastolic 54–85; PULSE 80–100; RESP 18–21; TEMP 36.1–37.3; O2SAT 81–99
[2025-07-28] MEDS: metroNIDAZOLE 500 MG/ISO 100ML 500 MG/100 ML BAG 100 MG IVPB ×3 (05:01→21:10)
[2025-07-28 06:22] LABS: Estimated CRCL calculation 42 ml/min; Estimated Glomerular Filt Rate 42
[2025-07-28] MEDS: DULoxetine HCL 60 MG CAPSULE.DR PO ×2 (08:20→16:43)
[2025-07-28] MEDS: ENOXAPARIN 40 MG/0.4 ML SYRINGE SUB-Q (08:20)
[2025-07-28] MEDS: CEFEPIME 1 GM in SODIUM CHLORIDE 0.9% IV 50 ML 100 ML IVPB ×2 (09:53→23:05)
[2025-07-28] MEDS: VANCOMYCIN 1,500 MG/NS 500 ML 1,500 MG/500 ML BAG 250 MG IVPB (10:27)
--- NOTE | 2025-07-28 10:46 | P.PNIM_ITS ---
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 Code(s): E11.621 - Type 2 diabetes mellitus with foot ulcer; L97.509 - Non-pressure chronic ulcer of other part of unspecified foot with unspecified severity Status: Acute Assessment and Plan: patient has a diabetic ulcer to the plantar surface of the right great toe with underlying necrosis suggesting gangrene with elevated inflammatory markers, patient also has surrounding cellulitis continue IV vancomycin, IV cefepime and IV Flagyl general surgery consulted f/u blood cultures order MRI of right foot to rule out osteomyelitis AM labs (2) Cellulitis of toe of right foot: Code(s): L03.031 - Cellulitis of right toe Status: Acute Assessment and Plan: see above (3) Renal failure: Qualifiers: Renal failure chronicity: unspecified chronicity Qualified Code(s): N19 - Unspecified kidney failure Code(s): N19 - Unspecified kidney failure Status: Acute Assessment and Plan: s/p IV fluids avoid nephrotoxics AM labs (4) Hypercalcemia: Code(s): E83.52 - Hypercalcemia Status: Acute Assessment and Plan: suspect due to dehydration s/p IV fluids AM labs (5) Acute hyponatremia: Code(s): E87.1 - Hypo-osmolality and hyponatremia Status: Acute Assessment and Plan: suspect due to dehydration s/p IV fluids AM labs (6) Type 2 diabetes mellitus with hyperglycemia, without long-term current use of insulin: Code(s): E11.65 - Type 2 diabetes mellitus with hyperglycemia Status: Acute Assessment and Plan: accu checks avoid hypoglycemia hold home metformin, glipizide and Januvia SSI monitor blood sugars and adjust as indicated (7) Anemia: Qualifiers: Anemia type: unspecified type Qualified Code(s): D64.9 - Anemia, unspecified Code(s): D64.9 - Anemia, unspecified Status: Acute Assessment and Plan: iron studies AM labs Subjective Date/time seen: 07/28/25 10:46 Interval history: Patient seen for a follow up visit. Patient sitting up in the chair, in no acute distress. Patient denies acute pain. Orthopedic consult pending. Patient's MRI of right foot negative for osteomyelitis. Erythema and warmth improving to RLE. Patient continues on IV antibiotics. Review of Systems Review of Systems: All systems reviewed & are unremarkable except as noted in HPI and below Exam Const: General: comfortable and no acute distress HENMT: Face/Nose/Sinus: Normal nares present Mouth: Yes moist mucous membranes Eyes: General: appearance normal, both eyes and all related structures Sclera: sclerae normal Neck: Neck: supple Resp: Effort & Inspection: normal respiratory effort Auscultation: clear to auscultation bilaterally Cardio: Rate: regular rate Rhythm: regular rhythm GI: Auscultation: normal bowel sounds Skin: Other: erythema to right ankle, foot and anterior mancini with some warmth. wound to right great toe Neuro: Speech: normal speech Motor exam (neuro): 5/5 motor strength present throughout Extrem: Other: 1+ edema RLE Psych: Mental Status: mental status grossly normal Affect: normal affect Objective Data Vital Signs Vital Signs: Vital Signs - 24 hr 07/27/25 12:00 07/27/25 14:00 07/27/25 16:00 Temperature 96.7 F L 96.7 F L 96.7 F L Pulse Rate 59 L 59 L 86 Respiratory Rate 18 18 19 Blood Pressure 151/77 H 151/77 H 142/45 H Pulse Oximetry 95 95 97 Oxygen Delivery 07/27/25 20:00 07/27/25 20:25 07/27/25 20:34 Temperature 96.8 F L Pulse Rate 59 L 59 L Respiratory Rate 18 Blood Pressure 153/83 H Pulse Oximetry 96 Oxygen Delivery Room Air 07/28/25 00:55 07/28/25 05:20 07/28/25 07:55 Temperature 97.4 F L 96.9 F L 97.0 F L Pulse Rate 82 98 83 Respiratory Rate 20 18 20 Blood Pressure 164/85 H 141/64 H Pulse Oximetry 96 98 97 Oxygen Delivery 07/28/25 08:21 Temperature Pulse Rate 83 Respiratory Rate Blood Pressure Pulse Oximetry Oxygen Delivery Intake/Output Intake/Output: Intake & Output 07/25/25 07/26/25 07/27/25 07/28/25 23:59 23:59 23:59 23:59 Intake Total 2100 1150 1872 Output Total 300 Balance 2100 850 1872 Meds/Results Medications: Active Medications Generic Name Dose Route Start Last Admin Trade Name Freq PRN Reason Stop Dose Admin Acetaminophen 1,000 mg 07/27/25 12:26 07/27/25 12:41 Acetaminophen 500 Mg Tablet PO 1,000 mg Q6H PRN Administration Mild Pain (1-3) or Fever Carvedilol 3.125 mg 07/27/25 09:00 07/28/25 08:21 Carvedilol 3.125 Mg Tablet PO 3.125 mg Q12HR VELASQUEZ Administration Dextrose 12.5 gm 07/27/25 07:03 Dextrose 50% 25 Gm/50 Ml Syringe IV PUSH PRN PRN Hypoglycemia Protocol Duloxetine HCl 60 mg 07/27/25 09:00 07/28/25 08:20 Duloxetine Hcl 60 Mg Capsule.Dr PO 60 mg BID VELASQUEZ Administration Enoxaparin Sodium 40 mg 07/27/25 09:00 07/28/25 08:20 Enoxaparin 40 Mg/0.4 Ml Syringe SUB-Q 40 mg DAILY VELASQUEZ Administration Glucagon 1 mg 07/27/25 07:03 Glucagon For Inj 1 Mg Vial IM PRN PRN Hypoglycemia Protocol Glucose 15 gm 07/27/25 07:03 Glucose Oral Gel 15 Gm Of Glucse In 37.5 Gm Tube PO PRN PRN Hypoglycemia Protocol Metronidazole 500 mg in 100 mls @ 100 mls/hr 07/26/25 22:00 07/28/25 05:01 Flagyl 500 Mg/Iso Soln 100 Ml IVPB 100 mls/hr Q8H VELASQUEZ Administration Cefepime HCl 1 gm/ Sodium 50 mls @ 100 mls/hr 07/26/25 23:00 07/28/25 09:53 Chloride IVPB 100 mls/hr Q12H VELASQUEZ Administration Vancomycin HCl 1,500 mg in 500 mls @ 250 mls/hr 07/28/25 10:00 07/28/25 10:27 Vancomycin 1,500 Mg/Ns 500 Ml IVPB 250 mls/hr Q36H VELASQUEZ Administration Dextrose 1,000 mls @ 100 mls/hr 07/27/25 07:03 Dextrose 5% 1,000 Ml IVPB PRN PRN Hypoglycemia Protocol Insulin Aspart 3 - 6 units 07/27/25 08:00 07/28/25 07:59 Insulin Aspart (*Bkc) 100 Units/Ml SUB-Q Not Given TIDWM [facility] Protocol Radiology Results: ITS Impressions Foot X-Ray 07/26/25 19:47 IMPRESSION: 1. Diffuse soft tissue swelling of big toe noted. 2. No plain radiographic evidence of osteomyelitis. Osteoarthritis as mentioned above. Clinical suspicion of osteomyelitis is significant, additional evaluation with MRI or three-phase nuclear bone scan may be considered. Foot MRI 07/28/25 08:56 IMPRESSION: 1. No evidence of osteomyelitis. Labs Labs: Laboratory Results - last 24 hr 07/27/25 07/27/25 07/27/25 11:28 15:51 20:27 Creatinine Estim Creat Clear Calc Estimated GFR POC Capillary Glucose 150 H 186 H 199 H 07/28/25 07/28/25 05:44 07:20 Creatinine 1.57 H Estim Creat Clear Calc 42 Estimated GFR 42 L POC Capillary Glucose 175 H Quality VTE Prophylaxis VTE prophylaxis: pharmacologic ordered (Lovenox 40 mg subQ daily.)
[2025-07-28] MEDS: INSULIN ASPART (*BKC) 100 UNITS/ML SUB-Q ×2 (12:00→16:39)
--- NOTE | 2025-07-28 15:05 | PM.CNOR ---
Assessment and Plan Assessment and plan (1) Infected blister of great toe of right foot: Code(s): S90.421A - Blister (nonthermal), right great toe, initial encounter; L08.9 - Local infection of the skin and subcutaneous tissue, unspecified Status: Acute (2) Diabetic foot ulcer: Qualifiers: Diabetic foot ulcer location: toe Diabetes mellitus type: type 2 Laterality: right Non-pressure ulcer stage: with necrosis of muscle Qualified Code(s): E11.621 - Type 2 diabetes mellitus with foot ulcer; L97.513 - Non-pressure chronic ulcer of other part of right foot with necrosis of muscle Code(s): E11.621 - Type 2 diabetes mellitus with foot ulcer; L97.509 - Non-pressure chronic ulcer of other part of unspecified foot with unspecified severity Status: Acute (3) Cellulitis of toe of right foot: Code(s): L03.031 - Cellulitis of right toe Status: Acute Plan rently. He tells me that he has not been on insulin for his entire life in that his type 2 diabetes has been managed by his primary care doctor conservatively. He reports he has had neuropathy in his hands and his feet for quite some time now. He reports no pain into the right foot. He reports that he wear schedule is on a regular basis. He is not too active according to his and daughter he primarily is a home ambulator. Xrays and MRI are both negative for osteomyelitis Recommend: 1. Follow CRP, WBC and clinically. 2. Continue Vanc and Cefepime 3. Check HgbA1c 4. Non-weight bearing to the Right Lower Extremity 5. Recommend DVT prophylaxis (asa bid) CRP 21.2 WBC 12.1 History of Present Illness HPI Consult date: 07/28/25 Chief complaint: Diabetic foot wound right Great toe Narrative: the patient is an 85-year-old male with a long history of type 2 diabetes was never been on insulin who presented to the emergency room with about a one-week history of right great toe pain ulcer that his noticed apparently. He tells me that he has not been on insulin for his entire life in that his type 2 diabetes has been managed by his primary care doctor conservatively. He reports he has had neuropathy in his hands and his feet for quite some time now. He reports no pain into the right foot. He reports that he wear schedule is on a regular basis. He is not too active according to his and daughter he primarily is a home ambulator. [facility] Past Medical History Medical History (Updated 07/28/25 @ 15:15 by Jim Ruelas MD) Essential hypertension Diabetic peripheral neuropathy Type 2 diabetes mellitus Surgical History Surgical History (Updated 07/27/25 @ 07:16 by Tatyana Taylor DO) No history of previous surgery Family History Family History Father Family history of malignant neoplasm Social History Social History (Updated 07/27/25 @ 07:24 by Tatyana Taylor DO) Social History: The patient lives with his of 64 years. They raised 1 daughter. He is a lifelong nonsmoker. He used to occasionally drink alcohol but quit drinking altogether approximately 30 years ago. 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 Code status: Full code (he would not want long-term ventilator support or G-tube) Healthcare power of black studies professor: Chacha Meyers (daughter) Smoking status: Never smoker Second hand tobacco smoke exposure: No Alcohol intake: never Substance use: never Lack of Transportation: No Lack of Food: Never True Current Housing: I Have Housing Concerned About Future Housing: No Difficulty Paying Gas/Electric Bills: No Difficulty Paying for Meds: No Currently Unemployed: No Education: High School Diploma/GED Difficulty w/ Childcare or Family Care: No Spiritual care concerns: No Meds Home Medications and Allergies Home Medications ?Medication ?Instructions ?Recorded ?Confirmed ?Type carvedilol 3.125 mg tablet 3.125 mg PO BID 07/26/25 07/27/25 History duloxetine 60 mg capsule,delayed 60 mg PO BID 07/26/25 07/27/25 History release glipizide 10 mg tablet 10 mg PO BID 07/26/25 07/27/25 History lisinopril 10 mg tablet 10 mg PO BID 07/26/25 07/27/25 History metformin 1,000 mg tablet 1,000 mg PO BID 07/26/25 07/27/25 History semaglutide 0.25 mg or 0.5 mg (2 0.25 mg subcut WEEKLY 07/26/25 07/27/25 History mg/3 mL) subcutaneous pen injector (Ozempic) sitagliptin phosphate 100 mg 100 mg PO DAILY 07/26/25 07/27/25 History tablet (Januvia) Allergies Allergy/AdvReac Type Severity Reaction Status Date / Time No Known Allergies Allergy Unknown Verified 07/27/25 00:37 Vital Signs Vital Signs - 24 hr 07/27/25 16:00 07/27/25 20:00 07/27/25 20:25 Temperature 35.9 C L 36.0 C L Pulse Rate 86 59 L Respiratory Rate 19 18 Blood Pressure 142/45 H 153/83 H Pulse Oximetry 97 96 Oxygen Delivery Room Air 07/27/25 20:34 07/28/25 00:55 07/28/25 05:20 Temperature 36.3 C L 36.1 C L Pulse Rate 59 L 82 98 Respiratory Rate 20 18 Blood Pressure 164/85 H Pulse Oximetry 96 98 Oxygen Delivery 07/28/25 07:55 07/28/25 08:21 07/28/25 11:57 Temperature 36.1 C L 36.2 C L Pulse Rate 83 83 100 Respiratory Rate 20 20 Blood Pressure 141/64 H 122/54 L Pulse Oximetry 97 81 L Oxygen Delivery 07/28/25 14:00 Temperature 36.6 C Pulse Rate 80 Respiratory Rate 21 H Blood Pressure 132/62 Pulse Oximetry 98 Oxygen Delivery Exam Narrative: Exam of the patient's right foot shows that he has a ulceration of the great toe with some extension of the erythema up to about midway up the foot. There is minimal drainage over the medial aspect of the great toe, erythema is noted. Essentially a malodorous Right Great Toe Wound involving the entire great toe. Const: General: cooperative, healthy appearing, comfortable, no acute distress, well developed, alert and awake Orientation/consciousness: oriented to person, oriented to place and oriented to time Results Labs 07/27/25 05:46 07/28/25 05:44 Labs: Abnormal lab results 07/27/25 07/27/25 07/28/25 Range/Units 15:51 20:27 05:44 Creatinine 1.57 H (0.7-1.3) mg/dL Estimated GFR 42 L (59 - ) POC Capillary Glucose 186 H 199 H (65-105) mg/dl 07/28/25 07/28/25 Range/Units 07:20 11:45 Creatinine (0.7-1.3) mg/dL Estimated GFR (59 - ) POC Capillary Glucose 175 H 244 H (65-105) mg/dl H & H 07/26/25 07/27/25 Range/Units 20:12 05:46 Hgb 11.3 L 9.6 L (14.0-18.0) g/dL Hct 35.4 L 30.7 L (42.0-52.0) % All other labs normal.
[2025-07-28 15:12] LABS: Hemoglobin A1C 7.4 % (<5.7)
[2025-07-28 15:29] LABS: CRP 21.8 mg/dL (<1.0)
[2025-07-29 04:40] VITALS: BP 151/66; PULSE 79; RESP 16; TEMP 35.9; O2SAT 100
[2025-07-29] MEDS: metroNIDAZOLE 500 MG/ISO 100ML 500 MG/100 ML BAG 100 MG IVPB ×2 (05:22→14:08)
[2025-07-29] MEDS: DULoxetine HCL 60 MG CAPSULE.DR PO ×2 (08:16→17:25)
[2025-07-29] MEDS: ENOXAPARIN 40 MG/0.4 ML SYRINGE SUB-Q (08:17)
[2025-07-29 08:18] VITALS: PULSE 90
--- NOTE | 2025-07-29 08:52 | PCPTNOTE ---
Spoke with Dr. Ruelas regarding pt's R LE NWB - Pt OK to weight bear through R heel of foot only with post op shoe. Charge nurse Trinity made aware. Will make pt's nurses (Essie and Alyce) aware.
[2025-07-29 09:03] LABS: Estimated CRCL calculation 48 ml/min; Estimated Glomerular Filt Rate 50
[2025-07-29] MEDS: CEFEPIME 1 GM in SODIUM CHLORIDE 0.9% IV 50 ML 100 ML IVPB ×2 (10:11→21:36)
[2025-07-29 10:48] LABS: Hematocrit 33.1 % (42.0-52.0); Hemoglobin 10.4 g/dL (14.0-18.0); Immature Granulocyte Percent A 0.4 % (0-0.5); Lymphocytes Absolute Auto 1.31 K/mm3 (0.9-3.2); Mean Corpuscular HGB Conc 31.4 g/dl (32-36); Mean Corpuscular Hemoglobin 27.7 pg (26-34); Mean Corpuscular Volume 88.3 fl (80-100); Nucleated Red Blood Cells Absolute Auto 0.000 K/mm3 (0.0-0.012); Nucleated Red Blood Cells Perc 0.0 % (0.0-0.2); Platelet Count Result 311 k/mm3 (150-375); Red Blood Count 3.75 M/mm3 (4.6-6.20); White Blood Count 10.5 K/mm3 (4.5-10.0)
[2025-07-29] MEDS: VANCOMYCIN 1,500 MG/NS 500 ML 1,500 MG/500 ML BAG 250 MG IVPB (10:53)
[2025-07-29 10:54] LABS: Alanine Aminotransferase 12 U/L (6-50); Albumin Level 3.3 g/dL (3.5-5.1); Alkaline Phosphatase 101 U/L (38-126); Anion Gap 5 mmol/L (4-12); Aspartate Amino Transferase 16 U/L (17-59); Bilirubin,Total 0.6 mg/dL (0.2-1.3); Blood Urea Nitrogen 18 mg/dL (9-20); Calcium 10.0 mg/dL (8.4-10.2); Carbon Dioxide 24 mmol/L (22-30); Chloride 106 mmol/L (98-107); Glucose 180 mg/dL (65-110); Potassium 4.3 mmol/L (3.4-5.0); Sodium 135 mmol/L (137-145); Total Protein 6.6 g/dL (6.3-8.2)
[2025-07-29] MEDS: INSULIN ASPART (*BKC) 100 UNITS/ML SUB-Q ×2 (12:43→17:26)
--- NOTE | 2025-07-29 13:47 | PM.IMPN2 ---
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 Code(s): E11.621 - Type 2 diabetes mellitus with foot ulcer; L97.509 - Non-pressure chronic ulcer of other part of unspecified foot with unspecified severity Status: Acute Assessment and Plan: patient has a diabetic ulcer to the plantar surface of the right great toe with underlying necrosis suggesting gangrene with elevated inflammatory markers, patient also has surrounding cellulitis continue IV vancomycin, IV cefepime and IV Flagyl general surgery consulted f/u blood cultures order MRI of right foot to rule out osteomyelitis AM labs (2) Cellulitis of toe of right foot: Code(s): L03.031 - Cellulitis of right toe Status: Acute Assessment and Plan: see above (3) Renal failure: Qualifiers: Renal failure chronicity: unspecified chronicity Qualified Code(s): N19 - Unspecified kidney failure Code(s): N19 - Unspecified kidney failure Status: Acute Assessment and Plan: s/p IV fluids avoid nephrotoxics AM labs (4) Hypercalcemia: Code(s): E83.52 - Hypercalcemia Status: Acute Assessment and Plan: suspect due to dehydration s/p IV fluids AM labs (5) Acute hyponatremia: Code(s): E87.1 - Hypo-osmolality and hyponatremia Status: Acute Assessment and Plan: suspect due to dehydration s/p IV fluids AM labs (6) Type 2 diabetes mellitus with hyperglycemia, without long-term current use of insulin: Code(s): E11.65 - Type 2 diabetes mellitus with hyperglycemia Status: Acute Assessment and Plan: accu checks avoid hypoglycemia hold home metformin, glipizide and Januvia SSI monitor blood sugars and adjust as indicated (7) Anemia: Qualifiers: Anemia type: unspecified type Qualified Code(s): D64.9 - Anemia, unspecified Code(s): D64.9 - Anemia, unspecified Status: Acute Assessment and Plan: iron studies AM labs Subjective Date/time seen: 07/29/25 13:47 Interval history: Patient seen for a follow up visit. Patient sitting up in the chair, in no acute distress. Patient denies acute pain. Orthopedic consult pending. Patient's MRI of right foot negative for osteomyelitis. Erythema and warmth improving to RLE. Patient continues on IV antibiotics. Review of Systems Review of Systems: 12 systems were reviewed with pertinent positives and negatives per HPI. Except as documented in the HPI, all other systems were reviewed and are negative. All systems reviewed & are unremarkable except as noted in HPI and below Exam Const: General: comfortable and no acute distress HENMT: Face/Nose/Sinus: Normal nares present Mouth: Yes moist mucous membranes Eyes: General: appearance normal, both eyes and all related structures Sclera: sclerae normal Neck: Neck: supple Resp: Effort & Inspection: normal respiratory effort Auscultation: clear to auscultation bilaterally Cardio: Rate: regular rate Rhythm: regular rhythm GI: Auscultation: normal bowel sounds Skin: Other: erythema to right ankle, foot and anterior mancini with some warmth. wound to right great toe Neuro: Speech: normal speech Motor exam (neuro): 5/5 motor strength present throughout Extrem: Other: 1+ edema RLE Psych: Mental Status: mental status grossly normal Affect: normal affect Objective Data Vital Signs Vital Signs: Vital Signs - 24 hr 07/28/25 14:00 07/28/25 16:00 07/28/25 20:00 Temperature 98 F 99.2 F Pulse Rate 80 80 Respiratory Rate 21 H 20 Blood Pressure 132/62 136/72 Pulse Oximetry 98 99 Oxygen Delivery Room Air 07/28/25 20:05 07/28/25 21:10 07/29/25 04:40 Temperature 98.7 F 96.7 F L Pulse Rate 87 87 79 Respiratory Rate 20 16 Blood Pressure 145/63 H 151/66 H Pulse Oximetry 97 100 Oxygen Delivery 07/29/25 08:18 07/29/25 08:18 07/29/25 08:25 Temperature Pulse Rate 90 Respiratory Rate Blood Pressure Pulse Oximetry Oxygen Delivery Room Air Room Air 07/29/25 09:11 Temperature Pulse Rate Respiratory Rate Blood Pressure Pulse Oximetry Oxygen Delivery Room Air Intake/Output Intake/Output: Intake & Output 07/26/25 07/27/25 07/28/25 07/29/25 23:59 23:59 23:59 23:59 Intake Total 2100 1150 2562 800 Output Total 300 750 Balance 2100 850 2562 50 Meds/Results Medications: Active Medications Generic Name Dose Route Start Last Admin Trade Name Freq PRN Reason Stop Dose Admin Acetaminophen 1,000 mg 07/27/25 12:26 07/27/25 12:41 Acetaminophen 500 Mg Tablet PO 1,000 mg Q6H PRN Administration Mild Pain (1-3) or Fever Carvedilol 3.125 mg 07/27/25 09:00 07/29/25 08:18 Carvedilol 3.125 Mg Tablet PO 3.125 mg Q12HR VELASQUEZ Administration Dextrose 12.5 gm 07/27/25 07:03 Dextrose 50% 25 Gm/50 Ml Syringe IV PUSH PRN PRN Hypoglycemia Protocol Duloxetine HCl 60 mg 07/27/25 09:00 07/29/25 08:16 Duloxetine Hcl 60 Mg Capsule.Dr PO 60 mg BID VELASQUEZ Administration Enoxaparin Sodium 40 mg 07/27/25 09:00 07/29/25 08:17 Enoxaparin 40 Mg/0.4 Ml Syringe SUB-Q 40 mg DAILY VELASQUEZ Administration Glucagon 1 mg 07/27/25 07:03 Glucagon For Inj 1 Mg Vial IM PRN PRN Hypoglycemia Protocol Glucose 15 gm 07/27/25 07:03 Glucose Oral Gel 15 Gm Of Glucse In 37.5 Gm Tube PO PRN PRN Hypoglycemia Protocol Metronidazole 500 mg in 100 mls @ 100 mls/hr 07/26/25 22:00 07/29/25 05:22 Flagyl 500 Mg/Iso Soln 100 Ml IVPB 100 mls/hr Q8H VELASQUEZ Administration Cefepime HCl 1 gm/ Sodium 50 mls @ 100 mls/hr 07/26/25 23:00 07/29/25 10:11 Chloride IVPB 100 mls/hr Q12H VELASQUEZ Administration Dextrose 1,000 mls @ 100 mls/hr 07/27/25 07:03 Dextrose 5% 1,000 Ml IVPB PRN PRN Hypoglycemia Protocol Vancomycin HCl 1,500 mg in 500 mls @ 250 mls/hr 07/29/25 10:00 07/29/25 10:53 Vancomycin 1,500 Mg/Ns 500 Ml IVPB 250 mls/hr Q18H VELASQUEZ Administration Insulin Aspart 3 - 6 units 07/27/25 08:00 07/29/25 12:43 Insulin Aspart (*Bkc) 100 Units/Ml SUB-Q 3 units TIDWM VELASQUEZ Administration Protocol Radiology Results: ITS Impressions Foot X-Ray 07/26/25 19:47 IMPRESSION: 1. Diffuse soft tissue swelling of big toe noted. 2. No plain radiographic evidence of osteomyelitis. Osteoarthritis as mentioned above. Clinical suspicion of osteomyelitis is significant, additional evaluation with MRI or three-phase nuclear bone scan may be considered. Foot MRI 07/28/25 08:56 IMPRESSION: 1. No evidence of osteomyelitis. Labs Labs: Laboratory Results - last 24 hr 07/28/25 07/28/25 07/28/25 05:42 05:44 15:59 WBC RBC Hgb Hct MCV MCH MCHC RDW Plt Count MPV Immature Gran % (Auto) Neut % (Auto) Lymph % (Auto) [place] % (Auto) Eos % (Auto) Baso % (Auto) Lymph # (Auto) [place] # (Auto) Eos # (Auto) Baso # (Auto) Abs Immat Gran (auto) Absolute Neuts (auto) Absolute Nucleated RBC Nucleated RBC % Sodium Potassium Chloride Carbon Dioxide Anion Gap BUN Creatinine Estim Creat Clear Calc Estimated GFR Glucose POC Capillary Glucose 202 H Hemoglobin A1c 7.4 H Calcium Total Bilirubin AST ALT Alkaline Phosphatase C-Reactive Protein 21.8 H Total Protein Albumin Vancomycin Trough 07/28/25 07/29/25 07/29/25 20:11 07:31 08:32 WBC 10.5 H RBC 3.75 L Hgb 10.4 L Hct 33.1 L MCV 88.3 MCH 27.7 MCHC 31.4 L RDW 13.4 Plt Count 311 MPV 11.1 H Immature Gran % (Auto) 0.4 Neut % (Auto) 75.8 H Lymph % (Auto) 12.5 L [place] % (Auto) 6.5 Eos % (Auto) 4.2 Baso % (Auto) 0.6 Lymph # (Auto) 1.31 [place] # (Auto) 0.7 H Eos # (Auto) 0.4 H Baso # (Auto) 0.1 Abs Immat Gran (auto) 0.04 H Absolute Neuts (auto) 8.0 H Absolute Nucleated RBC 0.000 Nucleated RBC % 0.0 Sodium 135 L Potassium 4.3 Chloride 106 Carbon Dioxide 24 Anion Gap 5 BUN 18 Creatinine 1.36 H Estim Creat Clear Calc 48 Estimated GFR 50 L Glucose 180 H POC Capillary Glucose 197 H 173 H Hemoglobin A1c Calcium 10.0 Total Bilirubin 0.6 AST 16 L ALT 12 Alkaline Phosphatase 101 C-Reactive Protein Total Protein 6.6 Albumin 3.3 L Vancomycin Trough 11.8 07/29/25 11:33 WBC RBC Hgb Hct MCV MCH MCHC RDW Plt Count MPV Immature Gran % (Auto) Neut % (Auto) Lymph % (Auto) [place] % (Auto) Eos % (Auto) Baso % (Auto) Lymph # (Auto) [place] # (Auto) Eos # (Auto) Baso # (Auto) Abs Immat Gran (auto) Absolute Neuts (auto) Absolute Nucleated RBC Nucleated RBC % Sodium Potassium Chloride Carbon Dioxide Anion Gap BUN Creatinine Estim Creat Clear Calc Estimated GFR Glucose POC Capillary Glucose 208 H Hemoglobin A1c Calcium Total Bilirubin AST ALT Alkaline Phosphatase C-Reactive Protein Total Protein Albumin Vancomycin Trough Quality VTE Prophylaxis VTE prophylaxis: pharmacologic ordered (Lovenox 40 mg subQ daily.)
[2025-07-29 14:00] VITALS: BP 170/96; PULSE 93; RESP 20; TEMP 36.3; O2SAT 100
[2025-07-29 21:40] VITALS: BP 154/75; PULSE 87; RESP 18; TEMP 36.3; O2SAT 98
[2025-07-30 05:57] VITALS: BP 145/68; PULSE 84; RESP 18; TEMP 36.6; O2SAT 96
[2025-07-30 06:19] LABS: Hematocrit 31.7 % (42.0-52.0); Hemoglobin 10.0 g/dL (14.0-18.0); Immature Granulocyte Percent A 0.5 % (0-0.5); Lymphocytes Absolute Auto 1.57 K/mm3 (0.9-3.2); Mean Corpuscular HGB Conc 31.5 g/dl (32-36); Mean Corpuscular Hemoglobin 27.5 pg (26-34); Mean Corpuscular Volume 87.1 fl (80-100); Nucleated Red Blood Cells Absolute Auto 0.000 K/mm3 (0.0-0.012); Nucleated Red Blood Cells Perc 0.0 % (0.0-0.2); Platelet Count Result 301 k/mm3 (150-375); Red Blood Count 3.64 M/mm3 (4.6-6.20); White Blood Count 9.9 K/mm3 (4.5-10.0)
[2025-07-30 06:44] LABS: Alanine Aminotransferase 12 U/L (6-50); Albumin Level 3.0 g/dL (3.5-5.1); Alkaline Phosphatase 118 U/L (38-126); Anion Gap 4 mmol/L (4-12); Aspartate Amino Transferase 22 U/L (17-59); Bilirubin,Total 0.6 mg/dL (0.2-1.3); Blood Urea Nitrogen 19 mg/dL (9-20); Calcium 10.1 mg/dL (8.4-10.2); Carbon Dioxide 26 mmol/L (22-30); Chloride 104 mmol/L (98-107); Estimated CRCL calculation 51 ml/min; Estimated Glomerular Filt Rate 54; Glucose 170 mg/dL (65-110); Potassium 4.6 mmol/L (3.4-5.0); Sodium 134 mmol/L (137-145); Total Protein 6.1 g/dL (6.3-8.2)
[2025-07-30 08:46] VITALS: PULSE 103
[2025-07-30] MEDS: ENOXAPARIN 40 MG/0.4 ML SYRINGE SUB-Q (08:46)
[2025-07-30] MEDS: DULoxetine HCL 60 MG CAPSULE.DR PO ×2 (08:46→17:20)
[2025-07-30 10:49] LABS: CRP 3.6 mg/dL (<1.0)
[2025-07-30] MEDS: INSULIN ASPART (*BKC) 100 UNITS/ML SUB-Q ×2 (11:54→17:20)
[2025-07-30] MEDS: CEFEPIME 1 GM in SODIUM CHLORIDE 0.9% IV 50 ML 100 ML IVPB (11:54)
--- NOTE | 2025-07-30 12:05 | P.PNIM_ITS ---
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 Code(s): E11.621 - Type 2 diabetes mellitus with foot ulcer; L97.509 - Non-pressure chronic ulcer of other part of unspecified foot with unspecified severity Status: Acute Assessment and Plan: patient has a diabetic ulcer to the plantar surface of the right great toe with underlying necrosis suggesting gangrene with elevated inflammatory markers, patient also has surrounding cellulitis continue IV vancomycin, IV cefepime and IV Flagyl general surgery consulted f/u blood cultures MRI of right foot negative for osteomyelitis wound cultures with staph and morganella antibiotics changed to PO flagyl and PO levofloxacin plan for 2 weeks treatment on discharge if patient is to follow up with outpatient communications professor call placed to ortho to determine if patient needs debridement prior to discharge, awaiting return call AM labs (2) Cellulitis of toe of right foot: Code(s): L03.031 - Cellulitis of right toe Status: Acute Assessment and Plan: see above (3) Renal failure: Qualifiers: Renal failure chronicity: unspecified chronicity Qualified Code(s): N19 - Unspecified kidney failure Code(s): N19 - Unspecified kidney failure Status: Acute Assessment and Plan: s/p IV fluids avoid nephrotoxics AM labs (4) Hypercalcemia: Code(s): E83.52 - Hypercalcemia Status: Acute Assessment and Plan: suspect due to dehydration s/p IV fluids AM labs (5) Acute hyponatremia: Code(s): E87.1 - Hypo-osmolality and hyponatremia Status: Acute Assessment and Plan: suspect due to dehydration s/p IV fluids AM labs (6) Type 2 diabetes mellitus with hyperglycemia, without long-term current use of insulin: Code(s): E11.65 - Type 2 diabetes mellitus with hyperglycemia Status: Acute Assessment and Plan: accu checks avoid hypoglycemia hold home metformin, glipizide and Januvia SSI monitor blood sugars and adjust as indicated (7) Anemia: Qualifiers: Anemia type: unspecified type Qualified Code(s): D64.9 - Anemia, unspecified Code(s): D64.9 - Anemia, unspecified Status: Acute Assessment and Plan: iron studies AM labs Medical Record Review I have reviewed the following patient records and this information was taken into consideration when formulating the assessment and plan.: previous labs, previous ER visits and previous hospitalizations Consultations Consultations: I have discussed the care of this pt with the consulting providers. Subjective Date/time seen: 07/30/25 12:05 Interval history: Patient seen for a follow up visit. Patient denies acute complaints. Patients wound culture reviewed and antibiotcs changed to PO Flagyl and PO Levaquin. Call placed to ortho to determine if wound needs debridement here or if patient should follow up with his communications professor outpatient. Awaiting return call. Patient will be discharged with 2 weeks of antibiotics to cover the time it will take for an outpatient appointment if that is the recommendation. Patient's labs reviewed and are stable. Possible discharge home tomorrow if no surgical intervention recommended. Review of Systems Review of Systems: 12 systems were reviewed with pertinent positives and negatives per HPI. Except as documented in the HPI, all other systems were reviewed and are negative. All systems reviewed & are unremarkable except as noted in HPI and below Exam Const: General: comfortable and no acute distress HENMT: Face/Nose/Sinus: Normal nares present Mouth: Yes moist mucous membranes Eyes: General: appearance normal, both eyes and all related structures Sclera: sclerae normal Neck: Neck: supple Resp: Effort & Inspection: normal respiratory effort Auscultation: clear to auscultation bilaterally Cardio: Rate: regular rate Rhythm: regular rhythm GI: Auscultation: normal bowel sounds Skin: Other: erythema to right ankle, foot and anterior mancini with some warmth. wound to right great toe Neuro: Speech: normal speech Motor exam (neuro): 5/5 motor strength present throughout Extrem: Other: 1+ edema RLE Psych: Mental Status: mental status grossly normal Affect: normal affect Objective Data Vital Signs Vital Signs: Vital Signs - 24 hr 07/29/25 14:00 07/29/25 20:00 07/29/25 21:40 Temperature 97.4 F L 97.3 F L Pulse Rate 93 87 Respiratory Rate 20 18 Blood Pressure 170/96 H 154/75 H Pulse Oximetry 100 98 Oxygen Delivery Room Air 07/30/25 05:57 07/30/25 08:45 12/16/25 08:46 Temperature 97.8 F Pulse Rate 84 103 H Respiratory Rate 18 Blood Pressure 145/68 H Pulse Oximetry 96 Oxygen Delivery Room Air Intake/Output Intake/Output: Intake & Output 07/27/25 07/28/25 07/29/25 07/30/25 23:59 23:59 23:59 23:59 Intake Total 1150 2562 1100 550 Output Total 300 2050 1300 Balance 850 2562 -484 -750 Meds/Results Medications: Active Medications Generic Name Dose Route Start Last Admin Trade Name Freq PRN Reason Stop Dose Admin Acetaminophen 1,000 mg 07/27/25 12:26 07/27/25 12:41 Acetaminophen 500 Mg Tablet PO 1,000 mg Q6H PRN Administration Mild Pain (1-3) or Fever Carvedilol 3.125 mg 07/27/25 09:00 07/30/25 08:46 Carvedilol 3.125 Mg Tablet PO 3.125 mg Q12HR VELASQUEZ Administration Dextrose 12.5 gm 07/27/25 07:03 Dextrose 50% 25 Gm/50 Ml Syringe IV PUSH PRN PRN Hypoglycemia Protocol Duloxetine HCl 60 mg 07/27/25 09:00 07/30/25 08:46 Duloxetine Hcl 60 Mg Capsule.Dr PO 60 mg BID VELASQUEZ Administration Enoxaparin Sodium 40 mg 07/27/25 09:00 07/30/25 08:46 Enoxaparin 40 Mg/0.4 Ml Syringe SUB-Q 40 mg DAILY VELASQUEZ Administration Glucagon 1 mg 07/27/25 07:03 Glucagon For Inj 1 Mg Vial IM PRN PRN Hypoglycemia Protocol Glucose 15 gm 07/27/25 07:03 Glucose Oral Gel 15 Gm Of Glucse In 37.5 Gm Tube PO PRN PRN Hypoglycemia Protocol Dextrose 1,000 mls @ 100 mls/hr 07/27/25 07:03 Dextrose 5% 1,000 Ml IVPB PRN PRN Hypoglycemia Protocol Insulin Aspart 3 - 6 units 07/27/25 08:00 07/30/25 11:54 Insulin Aspart (*Bkc) 100 Units/Ml SUB-Q 4 units TIDWM VELASQUEZ Administration Protocol Levofloxacin 750 mg 07/30/25 21:00 Levofloxacin 750 Mg Tablet PO QHS VELASQUEZ Metronidazole 500 mg 07/29/25 22:00 07/30/25 06:07 Metronidazole 500 Mg Tablet PO 500 mg Q8HR VELASQUEZ Administration Radiology Results: ITS Impressions Foot X-Ray 07/26/25 19:47 IMPRESSION: 1. Diffuse soft tissue swelling of big toe noted. 2. No plain radiographic evidence of osteomyelitis. Osteoarthritis as mentioned above. Clinical suspicion of osteomyelitis is significant, additional evaluation with MRI or three-phase nuclear bone scan may be considered. Foot MRI 07/28/25 08:56 IMPRESSION: 1. No evidence of osteomyelitis. Labs Labs: Laboratory Results - last 24 hr 07/29/25 07/29/25 07/29/25 11:33 16:16 19:47 WBC RBC Hgb Hct MCV MCH MCHC RDW Plt Count MPV Immature Gran % (Auto) Neut % (Auto) Lymph % (Auto) [place] % (Auto) Eos % (Auto) Baso % (Auto) Lymph # (Auto) [place] # (Auto) Eos # (Auto) Baso # (Auto) Abs Immat Gran (auto) Absolute Neuts (auto) Absolute Nucleated RBC Nucleated RBC % ESR Sodium Potassium Chloride Carbon Dioxide Anion Gap BUN Creatinine Estim Creat Clear Calc Estimated GFR Glucose POC Capillary Glucose 208 H 232 H 225 H Calcium Total Bilirubin AST ALT Alkaline Phosphatase C-Reactive Protein Total Protein Albumin 07/30/25 07/30/25 07/30/25 05:04 07:33 10:16 WBC 9.9 RBC 3.64 L Hgb 10.0 L Hct 31.7 L MCV 87.1 MCH 27.5 MCHC 31.5 L RDW 13.2 Plt Count 301 MPV 10.4 Immature Gran % (Auto) 0.5 Neut % (Auto) 69.9 Lymph % (Auto) 15.9 L [place] % (Auto) 7.6 Eos % (Auto) 5.6 H Baso % (Auto) 0.5 Lymph # (Auto) 1.57 [place] # (Auto) 0.8 H Eos # (Auto) 0.6 H Baso # (Auto) 0.1 Abs Immat Gran (auto) 0.05 H Absolute Neuts (auto) 6.9 H Absolute Nucleated RBC 0.000 Nucleated RBC % 0.0 ESR 98 H Sodium 134 L Potassium 4.6 Chloride 104 Carbon Dioxide 26 Anion Gap 4 BUN 19 Creatinine 1.28 Estim Creat Clear Calc 51 Estimated GFR 54 L Glucose 170 H POC Capillary Glucose 194 H Calcium 10.1 Total Bilirubin 0.6 AST 22 ALT 12 Alkaline Phosphatase 118 C-Reactive Protein 3.6 H Total Protein 6.1 L Albumin 3.0 L 07/30/25 11:31 WBC RBC Hgb Hct MCV MCH MCHC RDW Plt Count MPV Immature Gran % (Auto) Neut % (Auto) Lymph % (Auto) [place] % (Auto) Eos % (Auto) Baso % (Auto) Lymph # (Auto) [place] # (Auto) Eos # (Auto) Baso # (Auto) Abs Immat Gran (auto) Absolute Neuts (auto) Absolute Nucleated RBC Nucleated RBC % ESR Sodium Potassium Chloride Carbon Dioxide Anion Gap BUN Creatinine Estim Creat Clear Calc Estimated GFR Glucose POC Capillary Glucose 260 H Calcium Total Bilirubin AST ALT Alkaline Phosphatase C-Reactive Protein Total Protein Albumin Quality VTE Prophylaxis VTE prophylaxis: pharmacologic ordered (Lovenox 40 mg subQ daily.)
[2025-07-30 14:00] VITALS: BP 121/55; PULSE 92; RESP 18; TEMP 36.1; O2SAT 100
--- NOTE | 2025-07-30 15:20 | PCPTNOTE ---
Patient refused treatment this session. Patient reported he wants to wait to see if he'll need surgery on his foot and that he feels he does not need therapy.
[2025-07-30 19:55] VITALS: PULSE 92; RESP 18; O2SAT 100
[2025-07-30 20:58] VITALS: O2SAT 100
[2025-07-30 21:00] VITALS: BP 161/85; PULSE 105; RESP 16; TEMP 36.4; O2SAT 97
--- NOTE | 2025-07-31 03:59 | P.PNOP_ITS ---
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 - WBC has normalized from 15.5 on admission to 9.9 - CRP has significantly decrease from 21.2 to 3.6 - Xrays and MRI were negative for osteomyelitis - continue to follow clinically with the possibility of surgical debridement Subjective Subjective Date/Time Seen: 07/30/25 5:30pm Principal diagnosis: Right Great Toe Infection Interval history: No pain. Has been ambulating with physical therapy with post op shoe. Exam Narrative: Exam of Right Great Toe shows necrotic tissue over the plantar aspect with decrease erythema extending over the dorsum of the foot and over the plantar aspect of the foot. No drainage. Const: General: cooperative, healthy appearing, comfortable and no acute distress Objective Data Vital Signs Vital Signs: Vital Signs - 24 hr 07/30/25 05:57 07/30/25 08:45 07/30/25 08:46 Temperature 36.6 C Pulse Rate 84 103 H Respiratory Rate 18 Blood Pressure 145/68 H Pulse Oximetry 96 Oxygen Delivery Room Air 07/30/25 14:00 07/30/25 19:55 07/30/25 20:58 Temperature 36.1 C L Pulse Rate 92 92 Respiratory Rate 18 18 Blood Pressure 121/55 L Pulse Oximetry 100 100 100 Oxygen Delivery Room Air Room Air 07/30/25 21:00 Temperature 36.4 C Pulse Rate 105 H Respiratory Rate 16 Blood Pressure 161/85 H Pulse Oximetry 97 Oxygen Delivery Intake/Output Intake/Output: Intake & Output 07/28/25 07/29/25 07/30/25 07/31/25 23:59 23:59 23:59 23:59 Intake Total 2562 1100 1050 Output Total 2050 2550 Balance 2562 -950 -1500 Meds/Results Medications: Active Medications Generic Name Dose Route Start Last Admin Trade Name Freq PRN Reason Stop Dose Admin Acetaminophen 1,000 mg 07/27/25 12:26 07/27/25 12:41 Acetaminophen 500 Mg Tablet PO 1,000 mg Q6H PRN Administration Mild Pain (1-3) or Fever Carvedilol 3.125 mg 07/27/25 09:00 07/30/25 20:56 Carvedilol 3.125 Mg Tablet PO 3.125 mg Q12HR VELASQUEZ Administration Dextrose 12.5 gm 07/27/25 07:03 Dextrose 50% 25 Gm/50 Ml Syringe IV PUSH PRN PRN Hypoglycemia Protocol Duloxetine HCl 60 mg 07/27/25 09:00 07/30/25 17:20 Duloxetine Hcl 60 Mg Capsule.Dr PO 60 mg BID VELASQUEZ Administration Enoxaparin Sodium 40 mg 07/27/25 09:00 07/30/25 08:46 Enoxaparin 40 Mg/0.4 Ml Syringe SUB-Q 40 mg DAILY VELASQUEZ Administration Glucagon 1 mg 07/27/25 07:03 Glucagon For Inj 1 Mg Vial IM PRN PRN Hypoglycemia Protocol Glucose 15 gm 07/27/25 07:03 Glucose Oral Gel 15 Gm Of Glucse In 37.5 Gm Tube PO PRN PRN Hypoglycemia Protocol Dextrose 1,000 mls @ 100 mls/hr 07/27/25 07:03 Dextrose 5% 1,000 Ml IVPB PRN PRN Hypoglycemia Protocol Insulin Aspart 3 - 6 units 07/27/25 08:00 07/30/25 17:20 Insulin Aspart (*Bkc) 100 Units/Ml SUB-Q 4 units TIDWM VELASQUEZ Administration Protocol Levofloxacin 750 mg 07/30/25 21:00 07/30/25 20:56 Levofloxacin 750 Mg Tablet PO 750 mg QHS VELASQUEZ Administration Metronidazole 500 mg 07/29/25 22:00 07/30/25 20:56 Metronidazole 500 Mg Tablet PO 500 mg Q8HR VELASQUEZ Administration Radiology Results: ITS Impressions Foot X-Ray 07/26/25 19:47 IMPRESSION: 1. Diffuse soft tissue swelling of big toe noted. 2. No plain radiographic evidence of osteomyelitis. Osteoarthritis as mentioned above. Clinical suspicion of osteomyelitis is significant, additional evaluation with MRI or three-phase nuclear bone scan may be considered. Foot MRI 07/28/25 08:56 IMPRESSION: 1. No evidence of osteomyelitis. Labs Labs: Laboratory Results - last 24 hr 07/30/25 07/30/25 07/30/25 05:04 07:33 10:16 WBC 9.9 RBC 3.64 L Hgb 10.0 L Hct 31.7 L MCV 87.1 MCH 27.5 MCHC 31.5 L RDW 13.2 Plt Count 301 MPV 10.4 Immature Gran % (Auto) 0.5 Neut % (Auto) 69.9 Lymph % (Auto) 15.9 L [place] % (Auto) 7.6 Eos % (Auto) 5.6 H Baso % (Auto) 0.5 Lymph # (Auto) 1.57 [place] # (Auto) 0.8 H Eos # (Auto) 0.6 H Baso # (Auto) 0.1 Abs Immat Gran (auto) 0.05 H Absolute Neuts (auto) 6.9 H Absolute Nucleated RBC 0.000 Nucleated RBC % 0.0 ESR 98 H Sodium 134 L Potassium 4.6 Chloride 104 Carbon Dioxide 26 Anion Gap 4 BUN 19 Creatinine 1.28 Estim Creat Clear Calc 51 Estimated GFR 54 L Glucose 170 H POC Capillary Glucose 194 H Calcium 10.1 Total Bilirubin 0.6 AST 22 ALT 12 Alkaline Phosphatase 118 C-Reactive Protein 3.6 H Total Protein 6.1 L Albumin 3.0 L 07/30/25 07/30/25 07/30/25 11:31 16:16 21:05 WBC RBC Hgb Hct MCV MCH MCHC RDW Plt Count MPV Immature Gran % (Auto) Neut % (Auto) Lymph % (Auto) [place] % (Auto) Eos % (Auto) Baso % (Auto) Lymph # (Auto) [place] # (Auto) Eos # (Auto) Baso # (Auto) Abs Immat Gran (auto) Absolute Neuts (auto) Absolute Nucleated RBC Nucleated RBC % ESR Sodium Potassium Chloride Carbon Dioxide Anion Gap BUN Creatinine Estim Creat Clear Calc Estimated GFR Glucose POC Capillary Glucose 260 H 294 H 270 H Calcium Total Bilirubin AST ALT Alkaline Phosphatase C-Reactive Protein Total Protein Albumin
[2025-07-31 04:30] VITALS: BP 147/96; PULSE 62; RESP 20; TEMP 36.5; O2SAT 96
[2025-07-31 06:04] LABS: Hematocrit 32.8 % (42.0-52.0); Hemoglobin 10.4 g/dL (14.0-18.0); Immature Granulocyte Percent A 0.4 % (0-0.5); Lymphocytes Absolute Auto 1.76 K/mm3 (0.9-3.2); Mean Corpuscular HGB Conc 31.7 g/dl (32-36); Mean Corpuscular Hemoglobin 27.4 pg (26-34); Mean Corpuscular Volume 86.3 fl (80-100); Nucleated Red Blood Cells Absolute Auto 0.000 K/mm3 (0.0-0.012); Nucleated Red Blood Cells Perc 0.0 % (0.0-0.2); Platelet Count Result 309 k/mm3 (150-375); Red Blood Count 3.80 M/mm3 (4.6-6.20); White Blood Count 9.9 K/mm3 (4.5-10.0)
[2025-07-31 06:24] LABS: Alanine Aminotransferase 16 U/L (6-50); Albumin Level 3.0 g/dL (3.5-5.1); Alkaline Phosphatase 98 U/L (38-126); Anion Gap 6 mmol/L (4-12); Aspartate Amino Transferase 25 U/L (17-59); Bilirubin,Total 0.4 mg/dL (0.2-1.3); Calcium 9.9 mg/dL (8.4-10.2); Carbon Dioxide 27 mmol/L (22-30); Chloride 102 mmol/L (98-107); Glucose 253 mg/dL (65-110); Potassium 4.6 mmol/L (3.4-5.0); Sodium 135 mmol/L (137-145); Total Protein 6.2 g/dL (6.3-8.2)
[2025-07-31 06:47] LABS: Blood Urea Nitrogen 20 mg/dL (9-20); Estimated CRCL calculation 45 ml/min; Estimated Glomerular Filt Rate 46
[2025-07-31] MEDS: ENOXAPARIN 40 MG/0.4 ML SYRINGE SUB-Q (08:52)
[2025-07-31] MEDS: INSULIN ASPART (*BKC) 100 UNITS/ML SUB-Q ×3 (08:52→17:25)
[2025-07-31] MEDS: DULoxetine HCL 60 MG CAPSULE.DR PO ×2 (08:52→17:24)
[2025-07-31 14:00] VITALS: BP 120/59; PULSE 94; RESP 18; TEMP 36.2; O2SAT 96
--- NOTE | 2025-07-31 15:08 | P.PNIM_ITS ---
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 Patient follows with Dr. Sue emt intermediate outpatient. * IV vancomycin, IV cefepime and IV Flagyl transitioned to PO flagyl and PO levofloxacin * Ortho consulted plans to discuss possible need for debridment * blood cultures NGTD * pain management (2) Cellulitis of toe of right foot: Code(s): L03.031 - Cellulitis of right toe Status: Acute Assessment and Plan: * see above (3) Renal failure: Qualifiers: Renal failure chronicity: unspecified chronicity Qualified Code(s): N19 - Unspecified kidney failure Code(s): N19 - Unspecified kidney failure Status: Acute Assessment and Plan: Baseline 1.2-1.5 Cr * Improved with IV lfuids * Encourage oral hydration * avoid nephrotoxics * ABX renally dose sa needed (4) Hypercalcemia: Code(s): E83.52 - Hypercalcemia Status: Acute Assessment and Plan: suspect due to dehydration/Infection * Improved with IV fluids * trend (5) Type 2 diabetes mellitus with hyperglycemia, without long-term current use of insulin: Code(s): E11.65 - Type 2 diabetes mellitus with hyperglycemia Status: Acute Assessment and Plan: * accu checks ACHS * SSI low dose * Hypoglycemia protocol * hold home metformin, glipizide and Januvia * Diabetic diet Plan Code status: ?Full code per patient DVT prophylaxis: ?Anabella PT/OT notes: NA ? Disposition: ?Patient continues admission to the medical unit for further evaluation and treatment of diabetic ulceration to right great toe ortho was consulted for possible debridement will continue admission to determine need for possible surgical intervention. Medical Record Review I have reviewed the following patient records and this information was taken into consideration when formulating the assessment and plan.: previous labs, previous ER visits and previous hospitalizations Time Spent With Patient Time with patient: 15 - 25 minutes Subjective Date/time seen: 07/31/25 15:08 Interval history: 85-year-old male with a past medical history of essential hypertension and type 2 diabetes mellitus measures to oral medications with associated peripheral neuropathy who presented to the ER via private vehicle due to wound to his right great toe. Patient was admitted for further evaluation and treatment of infected right great toe. 07/31/2025: Assumed care Patient with no current complaints are no acute distress denied any fevers, chills, chest pain, fever minimal pain to right great toe due to his significant neuropathy. Patient will potentially need at least debridement and possible amputation. Review of Systems Review of Systems: 12 systems were reviewed with pertinent positives and negatives per HPI. Except as documented in the HPI, all other systems were reviewed and are negative. All systems reviewed & are unremarkable except as noted in HPI and below Exam Narrative: Weight 107.5 kg BMI 30.4 Const: General: comfortable and no acute distress Other: No acute distress, obese, appears stated age HENMT: Face/Nose/Sinus: Normal nares present Mouth: Yes moist mucous membranes Other: Mucous membranes are moist, no oral pharyngeal erythema Eyes: General: appearance normal, both eyes and all related structures Sclera: sclerae normal Other: Bilateral lens implants noted, positive conjunctival pallor, no scleral icterus Neck: Neck: supple Other: No JVD, no lymphadenopathy Resp: Effort & Inspection: normal respiratory effort Auscultation: clear to auscultation bilaterally Other: Clear to auscultation bilaterally, no increased work of breathing Cardio: Rate: regular rate Rhythm: regular rhythm Other: Regular rate, regular rhythm, 2+ bilateral radial pedal pulses GI: Auscultation: normal bowel sounds Other: Soft, nontender, nondistended, positive bowel sounds Skin: Other: erythema has improved to right ankle, foot and anterior mancini. wound to right great toe Neuro: Speech: normal speech Motor exam (neuro): 5/5 motor strength present throughout Other: Alert oriented x4, speech is clear, no facial asymmetry no localizing neurologic deficits noted during the course of conversation, chronic paresthesias in stocking and glove distribution consistent with history of neuropathy Extrem: Other: 1+ edema RLE Psych: Mental Status: mental status grossly normal Affect: normal affect Other: Appropriate mood and affect, pleasant and cooperative, judgment and insight intact Objective Data Vital Signs Vital Signs: Vital Signs - 24 hr 07/30/25 19:55 07/30/25 20:58 07/30/25 21:00 Temperature 97.6 F Pulse Rate 92 105 H Respiratory Rate 18 16 Blood Pressure 161/85 H Pulse Oximetry 100 100 97 Oxygen Delivery Room Air Room Air 07/31/25 04:30 07/31/25 08:52 07/31/25 14:00 Temperature 97.7 F 97.2 F L Pulse Rate 62 94 Respiratory Rate 20 18 Blood Pressure 147/96 H 120/59 L Pulse Oximetry 96 96 Oxygen Delivery Room Air Intake/Output Intake/Output: Intake & Output 07/28/25 07/29/25 07/30/25 07/31/25 23:59 23:59 23:59 23:59 Intake Total 2562 1100 1050 912 Output Total 2050 2550 2450 Balance 2333 -099 -3986 -4066 Meds/Results Medications: Active Medications Generic Name Dose Route Start Last Admin Trade Name Freq PRN Reason Stop Dose Admin Acetaminophen 1,000 mg 07/27/25 12:26 07/27/25 12:41 Acetaminophen 500 Mg Tablet PO 1,000 mg Q6H PRN Administration Mild Pain (1-3) or Fever Carvedilol 3.125 mg 07/27/25 09:00 07/31/25 08:58 Carvedilol 3.125 Mg Tablet PO 3.125 mg Q12HR VELASQUEZ Administration Dextrose 12.5 gm 07/27/25 07:03 Dextrose 50% 25 Gm/50 Ml Syringe IV PUSH PRN PRN Hypoglycemia Protocol Duloxetine HCl 60 mg 07/27/25 09:00 07/31/25 08:52 Duloxetine Hcl 60 Mg Capsule.Dr PO 60 mg BID VELASQUEZ Administration Enoxaparin Sodium 40 mg 07/27/25 09:00 07/31/25 08:52 Enoxaparin 40 Mg/0.4 Ml Syringe SUB-Q 40 mg DAILY VELASQUEZ Administration Glucagon 1 mg 07/27/25 07:03 Glucagon For Inj 1 Mg Vial IM PRN PRN Hypoglycemia Protocol Glucose 15 gm 07/27/25 07:03 Glucose Oral Gel 15 Gm Of Glucse In 37.5 Gm Tube PO PRN PRN Hypoglycemia Protocol Dextrose 1,000 mls @ 100 mls/hr 07/27/25 07:03 Dextrose 5% 1,000 Ml IVPB PRN PRN Hypoglycemia Protocol Insulin Aspart 3 - 6 units 07/27/25 08:00 07/31/25 12:14 Insulin Aspart (*Bkc) 100 Units/Ml SUB-Q 4 units TIDWM VELASQUEZ Administration Protocol Levofloxacin 750 mg 07/30/25 21:00 07/30/25 20:56 Levofloxacin 750 Mg Tablet PO 750 mg QHS VELASQUEZ Administration Metronidazole 500 mg 07/29/25 22:00 07/31/25 14:45 Metronidazole 500 Mg Tablet PO 500 mg Q8HR VELASQUEZ Administration Radiology Results: ITS Impressions Foot X-Ray 07/26/25 19:47 IMPRESSION: 1. Diffuse soft tissue swelling of big toe noted. 2. No plain radiographic evidence of osteomyelitis. Osteoarthritis as mentioned above. Clinical suspicion of osteomyelitis is significant, additional evaluation with MRI or three-phase nuclear bone scan may be considered. Foot MRI 07/28/25 08:56 IMPRESSION: 1. No evidence of osteomyelitis. Labs Labs: Laboratory Results - last 24 hr 07/30/25 07/30/25 07/31/25 16:16 21:05 05:35 WBC 9.9 RBC 3.80 L Hgb 10.4 L Hct 32.8 L MCV 86.3 MCH 27.4 MCHC 31.7 L RDW 13.2 Plt Count 309 MPV 9.9 Immature Gran % (Auto) 0.4 Neut % (Auto) 66.1 Lymph % (Auto) 17.8 L [place] % (Auto) 8.4 Eos % (Auto) 6.5 H Baso % (Auto) 0.8 Lymph # (Auto) 1.76 [place] # (Auto) 0.8 H Eos # (Auto) 0.6 H Baso # (Auto) 0.1 Abs Immat Gran (auto) 0.04 H Absolute Neuts (auto) 6.6 Absolute Nucleated RBC 0.000 Nucleated RBC % 0.0 Sodium 135 L Potassium 4.6 Chloride 102 Carbon Dioxide 27 Anion Gap 6 BUN 20 Creatinine 1.45 H Estim Creat Clear Calc 45 Estimated GFR 46 L Glucose 253 H POC Capillary Glucose 294 H 270 H Calcium 9.9 Total Bilirubin 0.4 AST 25 ALT 16 Alkaline Phosphatase 98 Total Protein 6.2 L Albumin 3.0 L 07/31/25 07/31/25 07:35 11:18 WBC RBC Hgb Hct MCV MCH MCHC RDW Plt Count MPV Immature Gran % (Auto) Neut % (Auto) Lymph % (Auto) [place] % (Auto) Eos % (Auto) Baso % (Auto) Lymph # (Auto) [place] # (Auto) Eos # (Auto) Baso # (Auto) Abs Immat Gran (auto) Absolute Neuts (auto) Absolute Nucleated RBC Nucleated RBC % Sodium Potassium Chloride Carbon Dioxide Anion Gap BUN Creatinine Estim Creat Clear Calc Estimated GFR Glucose POC Capillary Glucose 229 H 285 H Calcium Total Bilirubin AST ALT Alkaline Phosphatase Total Protein Albumin Quality VTE Prophylaxis VTE prophylaxis: pharmacologic ordered (Lovenox 40 mg subQ daily.) - Patient's previous records reviewed on admission -ER notes reviewed in detail on admission -discussed all findings and current treatment plan with patient/Family/POA -Consultations reviewed for recommendations -Patient's disposition for safe discharge discussed with child support case officer -radiology imaging, EKG and test results I have personally reviewed and interpreted unless otherwise specified Dictation performed by Tindie direct speech recognition software, therefore branch assistant variants and typographical errors may occur. Hospitalist MIPS Advance Care Plan I have confirmed that the patient's Advanced Care Plan is present, code status is documented, or surrogate decision maker is listed in patient medical record.: Yes Medication Reconciliation I have utilized all available resources to obtain, update and review the patients current medications (includes all prescriptions, OTC, herbals, c annabis, and nutritional supplements).: Yes The patient is not eligible for med reconciliation; the patient is in a emergent medical situation where delaying treatment would jeopardize the patients health.: No
--- NOTE | 2025-07-31 15:42 | PM.CNOR ---
Assessment and Plan Assessment and plan (1) Diabetic foot ulcer: Qualifiers: Diabetic foot ulcer location: toe Diabetes mellitus type: type 2 Laterality: right Non-pressure ulcer stage: with necrosis of muscle Qualified Code(s): E11.621 - Type 2 diabetes mellitus with foot ulcer; L97.513 - Non-pressure chronic ulcer of other part of right foot with necrosis of muscle Code(s): E11.621 - Type 2 diabetes mellitus with foot ulcer; L97.509 - Non-pressure chronic ulcer of other part of unspecified foot with unspecified severity Status: Acute Assessment and Plan: Patient seen and examined. Right hallux diabetic ulcer with infection. X-ray and MRI negative for osteomyelitis. Skin slough noted. Reviewed with patient and his family. He may be looking at an amputation of the hallux. In addition to diabetes and peripheral neuropathy he appears to have peripheral arterial disease with no palpable pulses and sluggish capillary refill. Treatment options reviewed including an attempted salvage of the toe versus amputation. Risks, benefits and alternatives discussed in detail. The patient and family's questions were answered to their satisfaction. Plan to start Betadine application to the toe and sterile dressings. Plan for bedside debridement tomorrow. May need to proceed with amputation based on results of debridement. Patient and family verbalized understanding. (2) Type 2 diabetes mellitus with hyperglycemia, without long-term current use of insulin: Code(s): E11.65 - Type 2 diabetes mellitus with hyperglycemia Status: Acute History of Present Illness HPI Consult date: 07/31/25 Requesting physician: Jim Ruelas MD Chief complaint: Diabetic foot wound right Great toe Narrative: 85-year-old with diabetes and peripheral neuropathy admitted to the emergency room with right hallux diabetic ulcer with infection. Asked to see patient for possible surgical management. Patient denies any prior infections or ulcers with the toes or feet. Noticed an ulcer on the right hallux with drainage 1 week ago. Presented to the emergency room 5 days ago. IV antibiotics started. Review of Systems Constitutional: Constitutional: Denies fever(s) Eyes: Eyes: Denies blurry vision ENT: Reports Normal hearing present Cardiovascular: Cardiovascular: Denies chest pain and Denies dyspnea Respiratory: Respiratory: Denies dyspnea and Denies wheezing Gastrointestinal: Gastrointestinal: Denies abdominal pain Genitourinary: Genitourinary: Denies urinary urgency Musculoskeletal: Musculoskeletal: Reports as per HPI and Denies numbness Integumentary/Breasts: Skin/Breast: Denies changing lesions and Denies sores Neurologic: Reports Normal hearing present, Denies behavioral changes, Denies confusion, Denies numbness and Denies convulsions Psychiatric: Psychiatric: Denies behavioral changes, Denies confusion and Denies hallucinations Endocrine: Endocrine: Denies heat intolerance Hematologic/Lymphatic: Hematologic/Lymphatic: Denies easy bleeding Allergic/Immunologic: Allergic/Immunologic: Denies wheezing PMFSH Past Medical History Medical History Essential hypertension Diabetic peripheral neuropathy Type 2 diabetes mellitus Surgical History Surgical History No history of previous surgery Family History Family History Father Family history of malignant neoplasm Social History Social History Social History: The patient lives with his of 64 years. They raised 1 daughter. He is a lifelong nonsmoker. He used to occasionally drink alcohol but quit drinking altogether approximately 30 years ago. 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 Code status: Full code (he would not want long-term ventilator support or G-tube) Healthcare power of attorney at law: Chacha Meyers (daughter) Smoking status: Never smoker Second hand tobacco smoke exposure: No Alcohol intake: never Substance use: never Lack of Transportation: No Lack of Food: Never True Current Housing: I Have Housing Concerned About Future Housing: No Difficulty Paying Gas/Electric Bills: No Difficulty Paying for Meds: No Currently Unemployed: No Education: High School Diploma/GED Difficulty w/ Childcare or Family Care: No Spiritual care concerns: No Meds Home Medications and Allergies Home Medications ?Medication ?Instructions ?Recorded ?Confirmed ?Type carvedilol 3.125 mg tablet 3.125 mg PO BID 07/26/25 07/27/25 History duloxetine 60 mg capsule,delayed 60 mg PO BID 07/26/25 07/27/25 History release glipizide 10 mg tablet 10 mg PO BID 07/26/25 07/27/25 History lisinopril 10 mg tablet 10 mg PO BID 07/26/25 07/27/25 History metformin 1,000 mg tablet 1,000 mg PO BID 07/26/25 07/27/25 History semaglutide 0.25 mg or 0.5 mg (2 0.25 mg subcut WEEKLY 07/26/25 07/27/25 History mg/3 mL) subcutaneous pen injector (Ozempic) sitagliptin phosphate 100 mg 100 mg PO DAILY 07/26/25 07/27/25 History tablet (Januvia) Allergies Allergy/AdvReac Type Severity Reaction Status Date / Time No Known Allergies Allergy Unknown Verified 07/27/25 00:37 Vital Signs Vital Signs - 24 hr 07/30/25 19:55 07/30/25 20:58 07/30/25 21:00 Temperature 97.6 F Pulse Rate 92 105 H Respiratory Rate 18 16 Blood Pressure 161/85 H Pulse Oximetry 100 100 97 Oxygen Delivery Room Air Room Air 07/31/25 04:30 07/31/25 08:52 07/31/25 14:00 Temperature 97.7 F 97.2 F L Pulse Rate 62 94 Respiratory Rate 20 18 Blood Pressure 147/96 H 120/59 L Pulse Oximetry 96 96 Oxygen Delivery Room Air Exam Const: General: healthy appearing; No in distress or confusion Orientation/consciousness: oriented to person, oriented to place, oriented to time and No confusion HENMT: Head: normal to inspection, normocephalic and atraumatic Eyes: Conjunctivae: conjunctivae normal Sclera: sclerae normal Neck: Neck: supple and nontender Resp: Effort & Inspection: normal respiratory effort and no audible wheezes Cardio: Rhythm: regular rhythm Skin: General skin exam: no rashes or lesions noted Neuro: General: oriented to person, oriented to place, oriented to time and No confusion Extrem: Right upper extremity: normal to inspection Left upper extremity: normal to inspection Right lower extremity: ankle Details: normal to inspection, abnormal ROM Details: with range as follows (ankle dorsiflexion -10 degrees, plantar flexion 40?, inversion 15?, eversion 15?) and other ( good stability all directions); no tenderness, no swelling and no ecchymosis and foot Details: abnormal to inspection ( Medial ulcer hallux), abnormal ROM of toe ( hallux MTP dorsiflexion 40, plantar flexion 20?), vascular exam Details: abnormal capillary refill Location: of all toes; dorsalis pedis pulse absent, posterior tibial pulse absent and capillary refill abnormal, tendon exam Details: active flexion abnormal and active extension abnormal, motor-sensory exam Details: two point discrimination abnormal Location: in all toes and light-touch abnormal Location: in all toes and other (Hallux metatarsophalangeal motion 20? dorsiflexion/10? plantar flexion) Left lower extremity: ankle Details: normal to inspection and abnormal ROM Details: with range as follows (ankle dorsiflexion -10 degrees, plantar flexion 40?, inversion 15?, eversion 15?); no tenderness and no swelling and foot Details: normal capillary refill, abnormal ROM of toe, vascular exam Details: abnormal capillary refill Location: of all toes; dorsalis pedis pulse absent, posterior tivial pulse absent and capillary refill abnormal, tendon exam active flexion abnormal of the great toe and active extension abnormal of the great toe and motor-sensory exam two point discrimination abnormal and light-touch abnormal in all toes; no tenderness and no crepitus Other: swelling, ecchymosis, erythema and foul drainage from the medial right hallux. Skin slough noted. Purulent drainage from the medial aspect. Psych: Affect: normal affect Results Labs 07/31/25 05:35 07/31/25 05:35 Labs: Abnormal lab results 07/30/25 07/30/25 07/31/25 Range/Units 16:16 21:05 05:35 RBC 3.80 L (4.6-6.20) M/mm3 Hgb 10.4 L (14.0-18.0) g/dL Hct 32.8 L (42.0-52.0) % MCHC 31.7 L (32-36) g/dl Lymph % (Auto) 17.8 L (18.3-44.2) % Eos % (Auto) 6.5 H (0-4.4) % [place] # (Auto) 0.8 H (0.1-0.6) K/mm3 Eos # (Auto) 0.6 H (0-0.3) K/mm3 Abs Immat Gran (auto) 0.04 H (0.00-0.031) K/mm3 Sodium 135 L (137-145) mmol/L Creatinine 1.45 H (0.7-1.3) mg/dL Estimated GFR 46 L (59 - ) Glucose 253 H (65-110) mg/dL POC Capillary Glucose 294 H 270 H (65-105) mg/dl Total Protein 6.2 L (6.3-8.2) g/dL Albumin 3.0 L (3.5-5.1) g/dL 07/31/25 07/31/25 Range/Units 07:35 11:18 RBC (4.6-6.20) M/mm3 Hgb (14.0-18.0) g/dL Hct (42.0-52.0) % MCHC (32-36) g/dl Lymph % (Auto) (18.3-44.2) % Eos % (Auto) (0-4.4) % [place] # (Auto) (0.1-0.6) K/mm3 Eos # (Auto) (0-0.3) K/mm3 Abs Immat Gran (auto) (0.00-0.031) K/mm3 Sodium (137-145) mmol/L Creatinine (0.7-1.3) mg/dL Estimated GFR (59 - ) Glucose (65-110) mg/dL POC Capillary Glucose 229 H 285 H (65-105) mg/dl Total Protein (6.3-8.2) g/dL Albumin (3.5-5.1) g/dL H & H 07/26/25 07/27/25 07/29/25 Range/Units 20:12 05:46 08:32 Hgb 11.3 L 9.6 L 10.4 L (14.0-18.0) g/dL Hct 35.4 L 30.7 L 33.1 L (42.0-52.0) % 07/30/25 07/31/25 Range/Units 05:04 05:35 Hgb 10.0 L 10.4 L (14.0-18.0) g/dL Hct 31.7 L 32.8 L (42.0-52.0) % All other labs normal.
[2025-07-31 20:00] VITALS: PULSE 94; RESP 18; O2SAT 96
[2025-07-31 20:35] VITALS: BP 157/80; PULSE 90; RESP 16; TEMP 36.3; O2SAT 96
[2025-08-01 04:30] VITALS: BP 170/91; PULSE 87; RESP 20; TEMP 36.8; O2SAT 95
[2025-08-01] MEDS: DULoxetine HCL 60 MG CAPSULE.DR PO ×2 (08:42→17:12)
[2025-08-01] MEDS: ENOXAPARIN 40 MG/0.4 ML SYRINGE SUB-Q (08:43)
[2025-08-01] MEDS: INSULIN ASPART (*BKC) 100 UNITS/ML SUB-Q ×3 (08:43→18:21)
[2025-08-01 13:59] LABS: Hematocrit 34.8 % (42.0-52.0); Hemoglobin 10.9 g/dL (14.0-18.0); Mean Corpuscular HGB Conc 31.3 g/dl (32-36); Mean Corpuscular Hemoglobin 27.1 pg (26-34); Mean Corpuscular Volume 86.6 fl (80-100); Platelet Count Result 335 k/mm3 (150-375); Red Blood Count 4.02 M/mm3 (4.6-6.20); White Blood Count 9.9 K/mm3 (4.5-10.0)
[2025-08-01 14:00] VITALS: BP 124/62; PULSE 84; RESP 18; TEMP 37.1; O2SAT 92
--- NOTE | 2025-08-01 14:13 | P.PNIM_ITS ---
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 Patient follows with Dr. Sue scientific director outpatient. * IV vancomycin, IV cefepime and IV Flagyl transitioned to PO flagyl and PO levofloxacin * Ortho consulted plans to discuss possible need for debridement * blood cultures NGTD * pain management * bedside debridement 08/01/2025 may also amputation * Postop boot * Wound/dressing changes per ortho (2) Cellulitis of toe of right foot: Code(s): L03.031 - Cellulitis of right toe Status: Acute Assessment and Plan: * see above (3) Renal failure: Qualifiers: Renal failure chronicity: unspecified chronicity Qualified Code(s): N19 - Unspecified kidney failure Code(s): N19 - Unspecified kidney failure Status: Acute Assessment and Plan: Baseline 1.2-1.5 Cr * Improved with IV lfuids * Encourage oral hydration * avoid nephrotoxics * ABX renally dose sa needed (4) Hypercalcemia: Code(s): E83.52 - Hypercalcemia Status: Acute Assessment and Plan: suspect due to dehydration/Infection * Improved with IV fluids * trend (5) Type 2 diabetes mellitus with hyperglycemia, without long-term current use of insulin: Code(s): E11.65 - Type 2 diabetes mellitus with hyperglycemia Status: Acute Assessment and Plan: * accu checks ACHS * SSI low dose * Hypoglycemia protocol * hold home metformin, glipizide and Januvia * Diabetic diet Plan Code status: ?Full code per patient DVT prophylaxis: ?Lovenox PT/OT notes: NA ? Disposition: ?Patient continues admission to the medical unit for further evaluation and treatment of diabetic ulceration to right great toe ortho was consulted for possible debridement will continue admission to determine need for possible surgical intervention. Medical Record Review I have reviewed the following patient records and this information was taken into consideration when formulating the assessment and plan.: previous labs, previous ER visits and previous hospitalizations Consultations Consultations: I have discussed the care of this pt with the consulting providers. Time Spent With Patient Time with patient: 15 - 25 minutes Subjective Date/time seen: 08/01/25 14:13 Interval history: 85-year-old male with a past medical history of essential hypertension and type 2 diabetes mellitus measures to oral medications with associated peripheral neuropathy who presented to the ER via private vehicle due to wound to his right great toe. Patient was admitted for further evaluation and treatment of infected right great toe. 08/01/2025: Assumed care Patient with no current complaints are no acute distress denied any fevers, chills, chest pain, fever minimal pain to right great toe due to his significant neuropathy. Waiting on bedside debridement may need amputation. Non-healing with nacrotic tissue on the great toe minimal improvement with ABX. Review of Systems Review of Systems: 12 systems were reviewed with pertinent positives and negatives per HPI. Except as documented in the HPI, all other systems were reviewed and are negative. All systems reviewed & are unremarkable except as noted in HPI and below Exam Narrative: Weight 107.5 kg BMI 30.4 Const: General: comfortable and no acute distress Other: No acute distress, obese, appears stated age HENMT: Face/Nose/Sinus: Normal nares present Mouth: Yes moist mucous me mbranes Other: Mucous membranes are moist, no oral pharyngeal erythema Eyes: General: appearance normal, both eyes and all related structures Sclera: sclerae normal Other: Bilateral lens implants noted, positive conjunctival pallor, no scleral icterus Neck: Neck: supple Other: No JVD, no lymphadenopathy Resp: Effort & Inspection: normal respiratory effort Auscultation: clear to auscultation bilaterally Other: Clear to auscultation bilaterally, no increased work of breathing Cardio: Rate: regular rate Rhythm: regular rhythm Other: Regular rate, regular rhythm, 2+ bilateral radial pedal pulses GI: Auscultation: normal bowel sounds Other: Soft, nontender, nondistended, positive bowel sounds Skin: Other: erythema has improved to right ankle, foot and anterior mancini. wound to right great toe with swelling and narcotic tissue, poor cap refill and osterior tivial pulse absent Neuro: Speech: normal speech Motor exam (neuro): 5/5 motor strength present throughout Other: Alert oriented x4, speech is clear, no facial asymmetry no localizing neurologic deficits noted during the course of conversation, chronic paresthesias in stocking and glove distribution consistent with history of neuropathy Extrem: Other: 1+ edema RLE Psych: Mental Status: mental status grossly normal Affect: normal affect Other: Appropriate mood and affect, pleasant and cooperative, judgment and insight intact Objective Data Vital Signs Vital Signs: Vital Signs - 24 hr 07/31/25 20:00 07/31/25 20:35 08/01/25 04:30 Temperature 97.3 F L 98.2 F Pulse Rate 94 90 87 Respiratory Rate 18 16 20 Blood Pressure 157/80 H 170/91 H Pulse Oximetry 96 96 95 Oxygen Delivery Room Air 08/01/25 08:00 Temperature Pulse Rate Respiratory Rate Blood Pressure Pulse Oximetry Oxygen Delivery Room Air Intake/Output Intake/Output: Intake & Output 07/29/25 07/30/25 07/31/25 08/01/25 23:59 23:59 23:59 23:59 Intake Total 1100 1050 2232 420 Output Total 2050 2550 2760 Balance -950 -1500 -266 420 Meds/Results Medications: Active Medications Generic Name Dose Route Start Last Admin Trade Name Freq PRN Reason Stop Dose Admin Acetaminophen 1,000 mg 07/27/25 12:26 07/27/25 12:41 Acetaminophen 500 Mg Tablet PO 1,000 mg Q6H PRN Administration Mild Pain (1-3) or Fever Carvedilol 3.125 mg 07/27/25 09:00 08/01/25 05:06 Carvedilol 3.125 Mg Tablet PO 3.125 mg Q12HR VELASQUEZ Administration Dextrose 12.5 gm 07/27/25 07:03 Dextrose 50% 25 Gm/50 Ml Syringe IV PUSH PRN PRN Hypoglycemia Protocol Duloxetine HCl 60 mg 07/27/25 09:00 08/01/25 08:42 Duloxetine Hcl 60 Mg Capsule.Dr PO 60 mg BID VELASQUEZ Administration Enoxaparin Sodium 40 mg 07/27/25 09:00 08/01/25 08:43 Enoxaparin 40 Mg/0.4 Ml Syringe SUB-Q 40 mg DAILY VELASQUEZ Administration Glucagon 1 mg 07/27/25 07:03 Glucagon For Inj 1 Mg Vial IM PRN PRN Hypoglycemia Protocol Glucose 15 gm 07/27/25 07:03 Glucose Oral Gel 15 Gm Of Glucse In 37.5 Gm Tube PO PRN PRN Hypoglycemia Protocol Dextrose 1,000 mls @ 100 mls/hr 07/27/25 07:03 Dextrose 5% 1,000 Ml IVPB PRN PRN Hypoglycemia Protocol Insulin Aspart 3 - 6 units 07/27/25 08:00 08/01/25 13:18 Insulin Aspart (*Bkc) 100 Units/Ml SUB-Q 4 units TIDWM VELASQUEZ Administration Protocol Levofloxacin 750 mg 07/30/25 21:00 07/31/25 21:07 Levofloxacin 750 Mg Tablet PO 750 mg QHS VELASQUEZ Administration Metronidazole 500 mg 07/29/25 22:00 08/01/25 13:38 Metronidazole 500 Mg Tablet PO 500 mg Q8HR VELASQUEZ Administration Radiology Results: ITS Impressions Foot X-Ray 07/26/25 19:47 IMPRESSION: 1. Diffuse soft tissue swelling of big toe noted. 2. No plain radiographic evidence of osteomyelitis. Osteoarthritis as mentioned above. Clinical suspicion of osteomyelitis is significant, additional evaluation with MRI or three-phase nuclear bone scan may be considered. Foot MRI 07/28/25 08:56 IMPRESSION: 1. No evidence of osteomyelitis. Labs Labs: Laboratory Results - last 24 hr 07/31/25 07/31/25 08/01/25 16:35 20:40 07:42 WBC RBC Hgb Hct MCV MCH MCHC RDW Plt Count MPV POC Capillary Glucose 214 H 221 H 234 H 08/01/25 08/01/25 11:27 13:47 WBC 9.9 RBC 4.02 L Hgb 10.9 L Hct 34.8 L MCV 86.6 MCH 27.1 MCHC 31.3 L RDW 13.2 Plt Count 335 MPV 9.7 POC Capillary Glucose 252 H Attestation: I personally reviewed all lab results Quality VTE Prophylaxis VTE prophylaxis: pharmacologic ordered (Lovenox 40 mg subQ daily.) - Patient's previous records reviewed on admission -ER notes reviewed in detail on admission -discussed all findings and current treatment plan with patient/Family/POA -Consultations reviewed for recommendations -Patient's disposition for safe discharge discussed with nurse case manager -radiology imaging, EKG and test results I have personally reviewed and interpreted unless otherwise specified Dictation performed by [employer] direct speech recognition software, therefore pharmacy delivery driver variants and typographical errors may occur. Hospitalist MIPS Advance Care Plan I have confirmed that the patient's Advanced Care Plan is present, code status is documented, or surrogate decision maker is listed in patient medical record.: Yes Medication Reconciliation I have utilized all available resources to obtain, update and review the patients current medications (includes all prescriptions, OTC, herbals, cannabis, and nutritional supplements).: Yes The patient is not eligible for med reconciliation; the patient is in a emergent medical situation where delaying treatment would jeopardize the patients health.: No
[2025-08-01 14:24] LABS: Alanine Aminotransferase 25 U/L (6-50); Albumin Level 3.3 g/dL (3.5-5.1); Alkaline Phosphatase 100 U/L (38-126); Anion Gap 4 mmol/L (4-12); Aspartate Amino Transferase 35 U/L (17-59); Bilirubin,Total 0.5 mg/dL (0.2-1.3); Blood Urea Nitrogen 23 mg/dL (9-20); Calcium 10.3 mg/dL (8.4-10.2); Carbon Dioxide 28 mmol/L (22-30); Chloride 101 mmol/L (98-107); Estimated CRCL calculation 43 ml/min; Estimated Glomerular Filt Rate 43; Glucose 311 mg/dL (65-110); Magnesium 1.5 mg/dL (1.6-2.3); Potassium 4.5 mmol/L (3.4-5.0); Sodium 133 mmol/L (137-145); Total Protein 6.6 g/dL (6.3-8.2)
--- NOTE | 2025-08-01 14:44 | PM.OP ---
Procedure Note - Brief Procedure Note - Brief Date of procedure: 08/01/25 Diabetic foot wound right Great toe Surgeon: Lalitha Beckford, DEUCE Urine output (mL): 1,250
--- NOTE | 2025-08-01 15:32 | WPDPROCEDUR ---
Debridement/Burn/Wound Pre Procedure Consent was obtained, Procedures/risks were explained, Questions were answered, Correct patient identified and Correct side and site confirmed Episode New Episode Area was prepped and draped using sterile technique?: Yes Ulcer/Wound Debridement, skin, first 20 sq cm or less: Yes Right (Hallux ) Comments:: Debridement of the skin, subcutaneous tissue and muscle debrided under sterile conditions with #15 blade knife. Devitalized tissue including muscle removed. Procedure tolerated well. Patient instructed on post-debridement dressing changes. Reviewed signs/symptoms of complications. Patient verbalized understanding and agrees with plan of care. Post Procedure Patient tolerated the procedure well?: Tolerated procedure well Comments: Applied Dakin's soaked gauze to wound bed. Discussed postoperative wound findings with the patient/family and possible need for further debridement vs. amputation. Patient and family verbalized understanding and agree with POC.
[2025-08-01 21:13] VITALS: BP 127/93; PULSE 102; RESP 16; TEMP 36.1; O2SAT 94
[2025-08-01 21:24] VITALS: PULSE 72
[2025-08-01] MEDS: SOD HYPOCHLORITE 1/4 STRENGTH 473 ML 1 APPLIC TOPICAL (21:25)
[2025-08-02] VITALS (14 sets, daily range): BP systolic 111–151; BP diastolic 64–89; PULSE 77–94; RESP 16–20; TEMP 35.7–36.7; O2SAT 94–100
[2025-08-02 06:19] LABS: Hematocrit 35.3 % (42.0-52.0); Hemoglobin 11.3 g/dL (14.0-18.0); Mean Corpuscular HGB Conc 32.0 g/dl (32-36); Mean Corpuscular Hemoglobin 28.0 pg (26-34); Mean Corpuscular Volume 87.4 fl (80-100); Platelet Count Result 331 k/mm3 (150-375); Red Blood Count 4.04 M/mm3 (4.6-6.20); White Blood Count 9.6 K/mm3 (4.5-10.0)
[2025-08-02 06:39] LABS: Alanine Aminotransferase 26 U/L (6-50); Albumin Level 3.2 g/dL (3.5-5.1); Alkaline Phosphatase 97 U/L (38-126); Anion Gap 5 mmol/L (4-12); Aspartate Amino Transferase 35 U/L (17-59); Bilirubin,Total 0.5 mg/dL (0.2-1.3); Blood Urea Nitrogen 23 mg/dL (9-20); Calcium 10.7 mg/dL (8.4-10.2); Carbon Dioxide 29 mmol/L (22-30); Chloride 101 mmol/L (98-107); Estimated CRCL calculation 43 ml/min; Estimated Glomerular Filt Rate 43; Glucose 237 mg/dL (65-110); Magnesium 1.6 mg/dL (1.6-2.3); Potassium 4.8 mmol/L (3.4-5.0); Sodium 135 mmol/L (137-145); Total Protein 6.5 g/dL (6.3-8.2)
--- NOTE | 2025-08-02 08:54 | P.PNIM_ITS ---
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 Patient follows with Dr. Sue software development advisor outpatient. * IV vancomycin, IV cefepime and IV Flagyl transitioned to PO flagyl and PO levofloxacin * Ortho consulted plans to discuss possible need for debridement * blood cultures NGTD * pain management * bedside debridement 08/01/2025 * Amputation planned for today 08/02/2025 @ 14:00 * Postop boot * Wound/dressing changes per ortho (2) Cellulitis of toe of right foot: Code(s): L03.031 - Cellulitis of right toe Status: Acute Assessment and Plan: * see above (3) Renal failure: Qualifiers: Renal failure chronicity: unspecified chronicity Qualified Code(s): N19 - Unspecified kidney failure Code(s): N19 - Unspecified kidney failure Status: Acute Assessment and Plan: Baseline 1.2-1.5 Cr * Improved with IV lfuids * Encourage oral hydration * avoid nephrotoxics * ABX renally dose sa needed (4) Hypercalcemia: Code(s): E83.52 - Hypercalcemia Status: Acute Assessment and Plan: suspect due to dehydration/Infection * Improved with IV fluids * trend (5) Type 2 diabetes mellitus with hyperglycemia, without long-term current use of insulin: Code(s): E11.65 - Type 2 diabetes mellitus with hyperglycemia Status: Acute Assessment and Plan: * accu checks ACHS * SSI low dose * Hypoglycemia protocol * hold home metformin, glipizide and Januvia * Diabetic diet Plan Code status: ?Full code per patient DVT prophylaxis: ?Anabella PT/OT notes: NA ? Disposition: ?Patient continues admission to the medical unit for further evaluation and treatment of diabetic ulceration to right great toe ortho was consulted for debridement will continue admission to determine need for possible surgical intervention for amputation. Medical Record Review I have reviewed the following patient records and this information was taken into consideration when formulating the assessment and plan.: previous labs, previous ER visits and previous hospitalizations Consultations Consultations: I have discussed the care of this pt with the consulting pro viders. Time Spent With Patient Time with patient: 15 - 25 minutes Subjective Date/time seen: 08/02/25 08:54 Interval history: 85-year-old male with a past medical history of essential hypertension and type 2 diabetes mellitus measures to oral medications with associated peripheral neuropathy who presented to the ER via private vehicle due to wound to his right great toe. Patient was admitted for further evaluation and treatment of infected right great toe. 08/02/2025: Patient with no complaints, denied pain orth has amputation planned for later this day. labs unremarkable and vitals stable. Review of Systems Review of Systems: 12 systems were reviewed with pertinent positives and negatives per HPI. Except as documented in the HPI, all other systems were reviewed and are negative. All systems reviewed & are unremarkable except as noted in HPI and below Exam Narrative: Weight 107.5 kg BMI 30.4 Const: General: comfortable and no acute distress Other: No acute distress, obese, appears stated age HENMT: Face/Nose/Sinus: Normal nares present Mouth: Yes moist mucous membranes Other: Mucous membranes are moist, no oral pharyngeal erythema Eyes: General: appearance normal, both eyes and all related structures Sclera: sclerae normal Other: Bilateral lens implants noted, positive conjunctival pallor, no scleral icterus Neck: Neck: supple Other: No JVD, no lymphadenopathy Resp: Effort & Inspection: normal respiratory effort Auscultation: clear to auscultation bilaterally Other: Clear to auscultation bilaterally, no increased work of breathing Cardio: Rate: regular rate Rhythm: regular rhythm Other: Regular rate, regular rhythm, 2+ bilateral radial pedal pulses GI: Auscultation: normal bowel sounds Other: Soft, nontender, nondistended, positive bowel sounds Skin: Other: erythema has improved to right ankle, foot and anterior mancini. wound to right great toe with swelling dressing place post debridment, poor cap refill and osterior tivial pulse absent Neuro: Speech: normal speech Motor exam (neuro): 5/5 motor strength present throughout Other: Alert oriented x4, speech is clear, no facial asymmetry no localizing neurologic deficits noted during the course of conversation, chronic paresthesias in stocking and glove distribution consistent with history of neuropathy Extrem: Other: 1+ edema RLE Psych: Mental Status: mental status grossly normal Affect: normal affect Other: Appropriate mood and affect, pleasant and cooperative, judgment and insight intact Objective Data Vital Signs Vital Signs: Vital Signs - 24 hr 08/01/25 14:00 08/01/25 21:13 08/01/25 21:24 Temperature 98.7 F 97.0 F L Pulse Rate 84 102 H 72 Respiratory Rate 18 16 Blood Pressure 124/62 127/93 H Pulse Oximetry 92 94 08/02/25 06:00 Temperature 97.1 F L Pulse Rate 88 Respiratory Rate 18 Blood Pressure 135/75 Pulse Oximetry 96 Intake/Output Intake/Output: Intake & Output 07/30/25 07/31/25 08/01/25 08/02/25 23:59 23:59 23:59 23:59 Intake Total 1050 2232 860 Output Total 2550 2760 800 100 Balance -1500 -528 60 -100 Meds/Results Medications: Active Medications Generic Name Dose Route Start Last Admin Trade Name Freq PRN Reason Stop Dose Admin Acetaminophen 1,000 mg 07/27/25 12:26 07/27/25 12:41 Acetaminophen 500 Mg Tablet PO 1,000 mg Q6H PRN Administration Mild Pain (1-3) or Fever Carvedilol 3.125 mg 07/27/25 09:00 08/01/25 21:24 Carvedilol 3.125 Mg Tablet PO 3.125 mg Q12HR VELASQUEZ Administration Dextrose 12.5 gm 07/27/25 07:03 Dextrose 50% 25 Gm/50 Ml Syringe IV PUSH PRN PRN Hypoglycemia Protocol Duloxetine HCl 60 mg 07/27/25 09:00 08/01/25 17:12 Duloxetine Hcl 60 Mg Capsule.Dr PO 60 mg BID VELASQUEZ Administration Enoxaparin Sodium 40 mg 07/27/25 09:00 08/01/25 08:43 Enoxaparin 40 Mg/0.4 Ml Syringe SUB-Q 40 mg DAILY VELASQUEZ Administration Glucagon 1 mg 07/27/25 07:03 Glucagon For Inj 1 Mg Vial IM PRN PRN Hypoglycemia Protocol Glucose 15 gm 07/27/25 07:03 Glucose Oral Gel 15 Gm Of Glucse In 37.5 Gm Tube PO PRN PRN Hypoglycemia Protocol Dextrose 1,000 mls @ 100 mls/hr 07/27/25 07:03 Dextrose 5% 1,000 Ml IVPB PRN PRN Hypoglycemia Protocol Insulin Aspart 3 - 6 units 07/27/25 08:00 08/01/25 18:21 Insulin Aspart (*Bkc) 100 Units/Ml SUB-Q 3 units TIDWM VELASQUEZ Administration Protocol Levofloxacin 750 mg 07/30/25 21:00 08/01/25 21:25 Levofloxacin 750 Mg Tablet PO 750 mg QHS VELASQUEZ Administration Metronidazole 500 mg 07/29/25 22:00 08/02/25 06:23 Metronidazole 500 Mg Tablet PO 500 mg Q8HR VELASQUEZ Administration Sodium Hypochlorite 1 applic 08/01/25 21:00 08/01/25 21:25 Sod Hypochlorite 1/4 Strength 473 Ml TOPICAL 1 applic Q12HR VELASQUEZ Administration Radiology Results: ITS Impressions Foot X-Ray 07/26/25 19:47 IMPRESSION: 1. Diffuse soft tissue swelling of big toe noted. 2. No plain radiographic evidence of osteomyelitis. Osteoarthritis as mentioned above. Clinical suspicion of osteomyelitis is significant, additional evaluation with MRI or three-phase nuclear bone scan may be considered. Foot MRI 07/28/25 08:56 IMPRESSION: 1. No evidence of osteomyelitis. Labs Labs: Laboratory Results - last 24 hr 08/01/25 08/01/25 08/01/25 11:27 13:47 17:07 WBC 9.9 RBC 4.02 L Hgb 10.9 L Hct 34.8 L MCV 86.6 MCH 27.1 MCHC 31.3 L RDW 13.2 Plt Count 335 MPV 9.7 Sodium 133 L Potassium 4.5 Chloride 101 Carbon Dioxide 28 Anion Gap 4 BUN 23 H Creatinine 1.54 H Estim Creat Clear Calc 43 Estimated GFR 43 L Glucose 311 H POC Capillary Glucose 252 H 243 H Calcium 10.3 H Magnesium 1.5 L Total Bilirubin 0.5 AST 35 ALT 25 Alkaline Phosphatase 100 Total Protein 6.6 Albumin 3.3 L 08/01/25 08/02/25 08/02/25 20:10 05:27 07:48 WBC 9.6 RBC 4.04 L Hgb 11.3 L Hct 35.3 L MCV 87.4 MCH 28.0 MCHC 32.0 RDW 13.2 Plt Count 331 MPV 10.2 Sodium 135 L Potassium 4.8 Chloride 101 Carbon Dioxide 29 Anion Gap 5 BUN 23 H Creatinine 1.54 H Estim Creat Clear Calc 43 Estimated GFR 43 L Glucose 237 H POC Capillary Glucose 298 H 257 H Calcium 10.7 H Magnesium 1.6 Total Bilirubin 0.5 AST 35 ALT 26 Alkaline Phosphatase 97 Total Protein 6.5 Albumin 3.2 L Attestation: I personally reviewed all lab results Quality VTE Prophylaxis VTE prophylaxis: pharmacologic ordered (Lovenox 40 mg subQ daily.) -Patient's previous records reviewed on admission -ER notes reviewed in detail on admission -discussed all findings and current treatment plan with patient/Family/POA -Consultations reviewed for recommendations -Patient's disposition for safe discharge discussed with field case manager -radiology imaging, EKG and test results I have personally reviewed and interpreted unless otherwise specified Dictation performed by [employer] direct speech recognition software, therefore retail attendant variants and typographical errors may occur. Hospitalist MIPS Advance Care Plan I have confirmed that the patient's Advanced Care Plan is present, code status is documented, or surrogate decision maker is listed in patient medical record.: Yes Medication Reconciliation I have utilized all available resources to obtain, update and review the patients current medications (includes all prescriptions, OTC, herbals, cannabis, and nutritional supplements).: Yes The patient is not eligible for med reconciliation; the patient is in a emergent medical situation where delaying treatment would jeopardize the patients health.: No
[2025-08-02] MEDS: DULoxetine HCL 60 MG CAPSULE.DR PO ×2 (09:13→17:28)
[2025-08-02] MEDS: ENOXAPARIN 40 MG/0.4 ML SYRINGE SUB-Q (09:18)
[2025-08-02] MEDS: INSULIN ASPART (*BKC) 100 UNITS/ML SUB-Q ×3 (09:18→17:28)
--- NOTE | 2025-08-02 10:24 | PCOTNOTE ---
Attempted to see Patient at this time. Patient states he was just told he is going down for an amputation on his Left great toe, not therapy today, try back at a later date.
--- NOTE | 2025-08-02 10:25 | P.PNOP_ITS ---
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 Wound communicates with the bone and tendon. Skin necrosis on the plantar aspect. Status post local debridement yesterday. With the skin necrosis and appearance today, the toe is not salvageable. This was discussed with the patient. he would like to proceed with amputation. (2) Type 2 diabetes mellitus with hyperglycemia, without long-term current use of insulin: Code(s): E11.65 - Type 2 diabetes mellitus with hyperglycemia Status: Acute (3) Renal failure: Qualifiers: Renal failure chronicity: unspecified chronicity Qualified Code(s): N19 - Unspecified kidney failure Code(s): N19 - Unspecified kidney failure Status: Acute Plan Discussed nonoperative and operative treatment options with the patient. Risks and benefits of each as well as alternatives were reviewed. All of the patient's questions were answered. The risks of surgery reviewed including but not limited to: Neurovascular damage, wound complication, infection, blood clot, pulmonary embolus, stroke, myocardial infarction, and anesthetic risks up to and including . Continued pain and possible dysfunction were explained. Specific risks of the procedure including later recurrence of deformity. No guarantees were offered. If hardware used, discussed risk of failure/ breakage and possible need for removal. If complications occur, the patient understands the need for further treatment, possible further surgery. Patient verbalizes understanding and wishes to proceed. PLAN: Right hallux amputation Subjective Subjective Date/Time Seen: 08/02/25 10:25 Principal diagnosis: right hallux diabetic ulcer Interval history: bedside debridement of the hallux yesterday. Patient is sitting up, awake and alert. Pain controlled. No new complaints. Review of Systems Constitutional: Constitutional: Denies fever(s) Eyes: Eyes: Denies blurry vision ENT: Reports Normal hearing present Cardiovascular: Cardiovascular: Denies chest pain and Denies dyspnea Respiratory: Respiratory: Denies dyspnea and Denies wheezing Gastrointestinal: Gastrointestinal: Denies abdominal pain Genitourinary: Genitourinary: Denies urinary urgency Musculoskeletal: Musculoskeletal: Reports as per HPI and Denies numbness Integumentary/Breasts: Skin/Breast: Denies changing lesions and Denies sores Neurologic: Reports Normal hearing present, Denies behavioral changes, Denies confusion, Denies numbness and Denies convulsions Psychiatric: Psychiatric: Denies behavioral changes, Denies confusion and Denies hallucinations Endocrine: Endocrine: Denies heat intolerance Hematologic/Lymphatic: Hematologic/Lymphatic: Denies easy bleeding Allergic/Immunologic: Allergic/Immunologic: Denies wheezing Exam Const: General: healthy appearing; No in distress or confusion Orientation/consciousness: oriented to person, oriented to place, oriented to time and No confusion HENMT: Head: normal to inspection, normocephalic and atraumatic Eyes: Conjunctivae: conjunctivae normal Sclera: sclerae normal Neck: Neck: supple and nontender Resp: Effort & Inspection: normal respiratory effort and no audible wheezes Cardio: Rhythm: regular rhythm Skin: General skin exam: no rashes or lesions noted Neuro: General: oriented to person, oriented to place, oriented to time and No confusion Extrem: Right upper extremity: normal to inspection Left upper extremity: normal to inspection Right lower extremity: ankle Details: normal to inspection, abnormal ROM Details: with range as follows (ankle dorsiflexion -10 degrees, plantar flexion 40?, inversion 15?, eversion 15?) and other ( good stability all directions); no tenderness, no swelling and no ecchymosis and foot Details: abnormal to inspection ( Medial ulcer hallux), abnormal ROM of toe ( hallux MTP dorsiflexion 40, plantar flexion 20?), vascular exam Details: abnormal capillary refill Location: of all toes; dorsalis pedis pulse absent, posterior tibial pulse absent and capillary refill abnormal, tendon exam Details: active flexion abnormal and active extension abnormal, motor-sensory exam Details: two point discrimination abnormal Location: in all toes and light- touch abnormal Location: in all toes and other (Hallux metatarsophalangeal motion 20? dorsiflexion/10? plantar flexion) Left lower extremity: ankle Details: normal to inspection and abnormal ROM Details: with range as follows (ankle dorsiflexion -10 degrees, plantar flexion 40?, inversion 15?, eversion 15?); no tenderness and no swelling and foot Details: normal capillary refill, abnormal ROM of toe, vascular exam Details: abnormal capillary refill Location: of all toes; dorsalis pedis pulse absent, posterior tivial pulse absent and capillary refill abnormal, tendon exam active flexion abnormal of the great toe and active extension abnormal of the great toe, motor-sensory exam two point discrimination abnormal and light-touch abnormal in all toes and other ( 5mm callus plantar hallux. No erythema or swelling); no tenderness and no crepitus Other: swelling, ecchymosis, erythema and pertinent drainage from the medial right hallux. Skin slough noted previously debrided yesterday. Purulent drainage from the medial aspect. 3 x 4 cm skin necrosis involving the plantar hallux with wound opening to bone and tendon. Psych: Affect: normal affect Objective Data Vital Signs Vital Signs: Vital Signs - 24 hr 08/01/25 14:00 08/01/25 21:13 08/01/25 21:24 Temperature 98.7 F 97.0 F L Pulse Rate 84 102 H 72 Respiratory Rate 18 16 Blood Pressure 124/62 127/93 H Pulse Oximetry 92 94 Oxygen Delivery 08/02/25 06:00 08/02/25 08:00 08/02/25 09:13 Temperature 97.1 F L Pulse Rate 88 91 Respiratory Rate 18 Blood Pressure 135/75 Pulse Oximetry 96 Oxygen Delivery Room Air Intake/Output Intake/Output: Intake & Output 07/30/25 07/31/25 08/01/25 08/02/25 23:59 23:59 23:59 23:59 Intake Total 1050 2232 860 10 Output Total 2550 2760 800 100 Balance -1500 -528 60 -90 Meds/Results Medications: Active Medications Generic Name Dose Route Start Last Admin Trade Name Freq PRN Reason Stop Dose Admin Acetaminophen 1,000 mg 07/27/25 12:26 07/27/25 12:41 Acetaminophen 500 Mg Tablet PO 1,000 mg Q6H PRN Administration Mild Pain (1-3) or Fever Carvedilol 3.125 mg 07/27/25 09:00 08/02/25 09:13 Carvedilol 3.125 Mg Tablet PO 3.125 mg Q12HR VELASQUEZ Administration Dextrose 12.5 gm 07/27/25 07:03 Dextrose 50% 25 Gm/50 Ml Syringe IV PUSH PRN PRN Hypoglycemia Protocol Duloxetine HCl 60 mg 07/27/25 09:00 08/02/25 09:13 Duloxetine Hcl 60 Mg Capsule.Dr PO 60 mg BID VELASQUEZ Administration Enoxaparin Sodium 40 mg 07/27/25 09:00 08/02/25 09:18 Enoxaparin 40 Mg/0.4 Ml Syringe SUB-Q 40 mg DAILY VELASQUEZ Administration Glucagon 1 mg 07/27/25 07:03 Glucagon For Inj 1 Mg Vial IM PRN PRN Hypoglycemia Protocol Glucose 15 gm 07/27/25 07:03 Glucose Oral Gel 15 Gm Of Glucse In 37.5 Gm Tube PO PRN PRN Hypoglycemia Protocol Dextrose 1,000 mls @ 100 mls/hr 07/27/25 07:03 Dextrose 5% 1,000 Ml IVPB PRN PRN Hypoglycemia Protocol Insulin Aspart 3 - 6 units 07/27/25 08:00 08/02/25 09:18 Insulin Aspart (*Bkc) 100 Units/Ml SUB-Q 4 units TIDWM VELASQUEZ Administration Protocol Levofloxacin 750 mg 07/30/25 21:00 08/01/25 21:25 Levofloxacin 750 Mg Tablet PO 750 mg QHS VELASQUEZ Administration Metronidazole 500 mg 07/29/25 22:00 08/02/25 06:23 Metronidazole 500 Mg Tablet PO 500 mg Q8HR VELASQUEZ Administration Sodium Hypochlorite 1 applic 08/01/25 21:00 08/01/25 21:25 Sod Hypochlorite 1/4 Strength 473 Ml TOPICAL 1 applic Q12HR VELASQUEZ Administration Radiology Results: ITS Impressions Foot X-Ray 07/26/25 19:47 IMPRESSION: 1. Diffuse soft tissue swelling of big toe noted. 2. No plain radiographic evidence of osteomyelitis. Osteoarthritis as mentioned above. Clinical suspicion of osteomyelitis is significant, additional evaluation with MRI or three-phase nuclear bone scan may be considered. Foot MRI 07/28/25 08:56 IMPRESSION: 1. No evidence of osteomyelitis. Labs Labs: Laboratory Results - last 24 hr 08/01/25 08/01/25 08/01/25 11:27 13:47 17:07 WBC 9.9 RBC 4.02 L Hgb 10.9 L Hct 34.8 L MCV 86.6 MCH 27.1 MCHC 31.3 L RDW 13.2 Plt Count 335 MPV 9.7 Sodium 133 L Potassium 4.5 Chloride 101 Carbon Dioxide 28 Anion Gap 4 BUN 23 H Creatinine 1.54 H Estim Creat Clear Calc 43 Estimated GFR 43 L Glucose 311 H POC Capillary Glucose 252 H 243 H Calcium 10.3 H Magnesium 1.5 L Total Bilirubin 0.5 AST 35 ALT 25 Alkaline Phosphatase 100 Total Protein 6.6 Albumin 3.3 L 08/01/25 08/02/25 08/02/25 20:10 05:27 07:48 WBC 9.6 RBC 4.04 L Hgb 11.3 L Hct 35.3 L MCV 87.4 MCH 28.0 MCHC 32.0 RDW 13.2 Plt Count 331 MPV 10.2 Sodium 135 L Potassium 4.8 Chloride 101 Carbon Dioxide 29 Anion Gap 5 BUN 23 H Creatinine 1.54 H Estim Creat Clear Calc 43 Estimated GFR 43 L Glucose 237 H POC Capillary Glucose 298 H 257 H Calcium 10.7 H Magnesium 1.6 Total Bilirubin 0.5 AST 35 ALT 26 Alkaline Phosphatase 97 Total Protein 6.5 Albumin 3.2 L [facility] Medical History Essential hypertension Diabetic peripheral neuropathy Type 2 diabetes mellitus Surgical History No history of previous surgery Family History Father Family history of malignant neoplasm Social History Social History Social History: The patient lives with his of 64 years. They raised 1 daughter. He is a lifelong nonsmoker. He used to occasionally drink alcohol but quit drinking altogether approximately 30 years ago. 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 Code status: Full code (he would not want long-term ventilator support or G- tube) Healthcare power of tax associate attorney: Chacha Meyers (daughter) Smoking status: Never smoker Second hand tobacco smoke exposure: No Alcohol intake: never Substance use: never Lack of Transportation: No Lack of Food: Never True Current Housing: I Have Housing Concerned About Future Housing: No Difficulty Paying Gas/Electric Bills: No Difficulty Paying for Meds: No Currently Unemployed: No Education: High School Diploma/GED Difficulty w/ Childcare or Family Care: No Spiritual care concerns: No
--- NOTE | 2025-08-02 10:56 | PCNWS ---
Weekly nutritional screen. Pt is NPO today for R hallux amputation. Patient tolerated previous Diabetic consistent carb diet with adequate intake, >75%. No weight loss reported. No nutritional needs at this time.
--- NOTE | 2025-08-02 11:15 | PCPTNOTE ---
Attempted to see patient for PT, however patient refused due to anticipated procedure later this date.
--- NOTE | 2025-08-02 13:13 | ECG_ITS ---
Test Date: 2025-08-02 13:24:39 Measurements Intervals Arab Rate: 88 P: 19 WA: 209 QRS: -37 QRSD: 132 T: 35 QT: 352 QTc: 426 Interpretive Statements SINUS RHYTHM WITH FIRST DEGREE AV BLOCK WITH OCCASIONAL VENTRICULAR PREMATURE COMPLEXES LEFT AXIS DEVIATION INTRAVENTRICULAR CONDUCTION DELAY POOR R WAVE PROGRESSION BASELINE ARTIFACT- I, II, III, AVR, AVL, AVF, V1 BORDERLINE ECG No previous ECG available for comparison Electronically Signed On 08-02-2025 13:57:14 SCIENTIFIC INFORMAT[employer] PROJECT LEADER by Umang Talley D.O.
[2025-08-02] MEDS: LACTATED RINGERS 1,000 ML 30 ML IV CONT (14:30)
--- NOTE | 2025-08-02 14:33 | WPDANESEPPF ---
Anes - Initial Pre Proc Eval Procedure: Operation Date: 08/02/25 15:30 Proposed Procedures p Right Hallux Amputation - Silas Christina MD Date/Time: 08/02/25 14:33 Surgeon: Tatyana Taylor DO Pre Op Diagnosis: Diabetic foot wound right Great toe Patient Data Age: 85 Gender: M Height: 1.88 m Weight: 107.5 kg Last Vital Signs Temp 36.2 C L 08/02/25 13:22 Pulse 89 08/02/25 13:22 Resp 20 08/02/25 13:22 BP 130/72 08/02/25 13:22 Pulse Ox 97 08/02/25 13:22 O2 Del Method Room Air 08/02/25 08:00 Allergies Allergy/AdvReac Type Severity Reaction Status Date / Time No Known Allergies Allergy Unknown Verified 07/27/25 00:37 Home Medications ?Medication ?Instructions ?Recorded ?Confirmed ?Type carvedilol 3.125 mg tablet 3.125 mg PO BID 07/26/25 07/27/25 History duloxetine 60 mg capsule,delayed 60 mg PO BID 07/26/25 07/27/25 History release glipizide 10 mg tablet 10 mg PO BID 07/26/25 07/27/25 History lisinopril 10 mg tablet 10 mg PO BID 07/26/25 07/27/25 History metformin 1,000 mg tablet 1,000 mg PO BID 07/26/25 07/27/25 History semaglutide 0.25 mg or 0.5 mg (2 0.25 mg subcut WEEKLY 07/26/25 07/27/25 History mg/3 mL) subcutaneous pen injector (Ozempic) sitagliptin phosphate 100 mg 100 mg PO DAILY 07/26/25 07/27/25 History tablet (Januvia) Laboratory Tests 08/01/25 08/01/25 08/02/25 17:07 20:10 05:27 WBC 9.6 K/mm3 (4.5-10.0) RBC 4.04 L M/mm3 (4.6-6.20) Hgb 11.3 L g/dL (14.0-18.0) Hct 35.3 L % (42.0-52.0) MCV 87.4 fl (80-100) MCH 28.0 pg (26-34) MCHC 32.0 g/dl (32-36) RDW 13.2 % (11.5-14.5) Plt Count 331 k/mm3 (150-375) MPV 10.2 fl (7.4-10.4) Sodium 135 L mmol/L (137-145) Potassium 4.8 mmol/L (3.4-5.0) Chloride 101 mmol/L (98-107) Carbon Dioxide 29 mmol/L (22-30) Anion Gap 5 mmol/L (4-12) BUN 23 H mg/dL (9-20) Creatinine 1.54 H mg/dL (0.7-1.3) Estim Creat Clear Calc 43 ml/min Estimated GFR 43 L (59 - ) Glucose 237 H mg/dL (65-110) POC Capillary Glucose 243 H mg/dl 298 H mg/dl (65-105) (65-105) Calcium 10.7 H mg/dL (8.4-10.2) Magnesium 1.6 mg/dL (1.6-2.3) Total Bilirubin 0.5 mg/dL (0.2-1.3) AST 35 U/L (17-59) ALT 26 U/L (6-50) Alkaline Phosphatase 97 U/L (38-126) Total Protein 6.5 g/dL (6.3-8.2) Albumin 3.2 L g/dL (3.5-5.1) 08/02/25 08/02/25 07:48 11:45 WBC RBC Hgb Hct MCV MCH MCHC RDW Plt Count MPV Sodium Potassium Chloride Carbon Dioxide Anion Gap BUN Creatinine Estim Creat Clear Calc Estimated GFR Glucose POC Capillary Glucose 257 H mg/dl 278 H mg/dl (65-105) (65-105) Calcium Magnesium Total Bilirubin AST ALT Alkaline Phosphatase Total Protein Albumin Patient hx anesthesia problems: none Family hx anesthesia problems: none Results Review: All pre-operative results and documents have been reviewed as part of the pre-operative evaluation. ON LICENSE OF [facility] Past Medical History Medical History Essential hypertension Diabetic peripheral neuropathy Type 2 diabetes mellitus Surgical History Surgical History No history of previous surgery Family History Family History Father Family history of malignant neoplasm Social History Social History Social History: The patient lives with his of 64 years. They raised 1 daughter. He is a lifelong nonsmoker. He used to occasionally drink alcohol but quit drinking altogether approximately 30 years ago. 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 Code status: Full code (he would not want long-term ventilator support or G-tube) Healthcare power of commercial real estate attorney: Chacha Meyers (daughter) Smoking status: Never smoker Second hand tobacco smoke exposure: No Alcohol intake: never Substance use: never Lack of Transportation: No Lack of Food: Never True Current Housing: I Have Housing Concerned About Future Housing: No Difficulty Paying Gas/Electric Bills: No Difficulty Paying for Meds: No Currently Unemployed: No Education: High School Diploma/GED Difficulty w/ Childcare or Family Care: No Spiritual care concerns: No Anes - Eval Final PreProcedure Day of Procedure 08/02/25 14:33 Patient weight: obese Heart: regular rate and rhythm Lungs: clear to auscultation Airway: Mallampati scale class II Neurological: alert and oriented Last oral intake: 6 hours ASA classification: III Emergent: no Anesthetic plan: proceed Anesthesia type and monitoring: general ETT and standard monitoring Results Review: All pre-operative results and documents have been reviewed as part of the pre-operative evaluation. Informed Consent: The patient's anesthetic plan and its attendant risks and benefits were discussed with the patient/family/POA. Questions were solicited and answers provided to the satisfaction of the patient/family/POA.
--- NOTE | 2025-08-02 14:55 | WPDHPUPDATE1 ---
History and Physical Update Update Date/Time: 08/02/25 14:55 History and Physical has been reviewed, including an updated exam of the patient. There are NO changes in the patient's condition. Risks, benefits, and alternatives have been discussed and questions answered. Patient agrees to proceed with procedure.
[2025-08-02] MEDS: ACETAMINOPHEN 500 MG TABLET 1000 MG PO (15:00)
--- NOTE | 2025-08-02 15:06 | P.OP_ITS ---
Procedure Note - Detailed Date of Procedure 08/02/25 Pre-op Diagnosis Diabetic foot wound right Great toe Post-op Diagnosis Same Procedure Performed Right hallux amputation Surgeon Silas Christina MD Attendance Officer 1st assistant speech language pathologist Anesthesia General Indications 85-year-old with diabetes and peripheral neuropathy who was admitted to the hospital with right hallux diabetic ulcer with infection and necrosis. Necrosis involves the soft tissue over the end of the hallux with exposure of bone and tendon. Presents now for amputation as no salvage is possible. Description of Procedure Patient identified in the preoperative holding. Informed consent given. Operative extremity marked. Patient received intravenous antibiotics. Patient brought to the operating room where underwent general anesthetic by anesthesia team. Positioned supine on operating room table. Time-out performed confirming the patient, site of the surgery and the plan. Right foot prepped and draped in usual sterile surgical fashion using Betadine prep solution. There was an ulcer over the dorsal medial aspect of the hallux which revealed full-thickness necrosis with exposed bone of the proximal phalanx. No ability to heal the wound and no soft tissue coverage of the bone, amputation of the hallux was indicated. Fifteen blade knife used to make fishmouth shaped incision at the base of the hallux. Hemostasis controlled with electrocautery. Joint incised circumferentially with a 15 blade knife and hallux removed and passed off the table. Thorough irrigation done. Articular surface of the metatarsal head removed with a rongeur and smoothed. Wound thoroughly irrigated again. Wound closed with 2 0 Vicryl interrupted suture for the deep tissue, 3 O Monocryl interrupted suture for the subcutaneous tissue and 3 O nylon interrupted sutures for the skin. Sterile dressings applied. Patient awoke from anesthesia, extubated and taken to the recovery room in stable condition. All sponge needle and instrument counts correct at the end the case. Estimated Blood Loss 5 Tourniquet Time Total Tourniquet Time: 20 Urine Output 100 Drains No Packing No Pathology Yes (Right hallux) Complications None Condition Stable Disposition PACU [facility] Billing Surgery - Charge Forward: Surgery Billing ([id number])
[2025-08-02] MEDS: ceFAZolin 2 GM in SODIUM CHLORIDE 0.9% IV 50 ML 100 ML IVPB (15:15)
--- NOTE | 2025-08-02 15:42 | S_PTH ---
PATIENT: Mahesh Maldonado Jr. LOC: [id number] U#:[id number] AGE/SX: 85/M ROOM: 302 RE07/26/[address]: Leonardo Elkins MD : 1940 BED: 01 DIS: 08/03/2025 SPEC #: [id number] RECD: 08/05/25 07:20 STATUS: BILL GUNN #: [id number] WILNER: 08/02/25 15:[address]: Silas Christina DEPT: [facility] Surgical RECD BY: Nessa Jane ENTERED: 08/05/25 07:20 SP TYPE: Surgical OTHR DR: Tong Arzate, DEUCE Aquino DO Felix F. Ungacta, MD Tissues: A - Toe Procedures: Hematoxylin and Eosin Stain Gross and Microscopic Level 4 Decalcification
[2025-08-02] MEDS: BUPivacaine HCL 0.5% 10 ML AMP 30 ML INFILTRATE (15:47)
[2025-08-02] MEDS: SENNA/DOCUSATE SODIUM TABLET 2 TAB PO (17:28)
[2025-08-02] MEDS: SODIUM CHLORIDE 0.9% IV 1,000 ML 75 ML IV CONT (17:28)
[2025-08-02] MEDS: ceFAZolin 1 GM in SODIUM CHLORIDE 0.9% IV 50 ML 100 ML IVPB (23:35)
[2025-08-03 02:42] VITALS: BP 127/72; PULSE 82; RESP 20; TEMP 36.4; O2SAT 95
[2025-08-03 05:40] LABS: Hematocrit 33.4 % (42.0-52.0); Hemoglobin 10.4 g/dL (14.0-18.0); Mean Corpuscular HGB Conc 31.1 g/dl (32-36); Mean Corpuscular Hemoglobin 27.6 pg (26-34); Mean Corpuscular Volume 88.6 fl (80-100); Platelet Count Result 300 k/mm3 (150-375); Red Blood Count 3.77 M/mm3 (4.6-6.20); White Blood Count 9.5 K/mm3 (4.5-10.0)
[2025-08-03] MEDS: ceFAZolin 1 GM in SODIUM CHLORIDE 0.9% IV 50 ML 100 ML IVPB ×2 (06:07→14:49)
[2025-08-03 06:29] LABS: Alanine Aminotransferase 21 U/L (6-50); Albumin Level 3.0 g/dL (3.5-5.1); Alkaline Phosphatase 91 U/L (38-126); Anion Gap 3 mmol/L (4-12); Aspartate Amino Transferase 27 U/L (17-59); Bilirubin,Total 0.4 mg/dL (0.2-1.3); Blood Urea Nitrogen 25 mg/dL (9-20); Calcium 10.5 mg/dL (8.4-10.2); Carbon Dioxide 29 mmol/L (22-30); Chloride 103 mmol/L (98-107); Estimated CRCL calculation 42 ml/min; Estimated Glomerular Filt Rate 43; Glucose 211 mg/dL (65-110); Magnesium 1.7 mg/dL (1.6-2.3); Potassium 4.8 mmol/L (3.4-5.0); Sodium 135 mmol/L (137-145); Total Protein 6.2 g/dL (6.3-8.2)
[2025-08-03 07:00] VITALS: BP 143/68; PULSE 80; RESP 20; TEMP 36.4; O2SAT 95
[2025-08-03] MEDS: INSULIN ASPART (*BKC) 100 UNITS/ML SUB-Q ×2 (08:46→11:56)
[2025-08-03] MEDS: SENNA/DOCUSATE SODIUM TABLET 2 TAB PO (08:48)
[2025-08-03] MEDS: HYDROcodone/acetaminophen (*CRX) 5-325 MG TABLET 1 TAB PO ×2 (08:48→14:50)
[2025-08-03] MEDS: ENOXAPARIN 40 MG/0.4 ML SYRINGE SUB-Q (08:48)
[2025-08-03] MEDS: DULoxetine HCL 60 MG CAPSULE.DR PO (08:48)
--- NOTE | 2025-08-03 08:53 | P.PNIM_ITS ---
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 Patient follows with Dr. Sue senior business architect outpatient. * IV vancomycin, IV cefepime and IV Flagyl transitioned to PO flagyl and PO levofloxacin * Ortho consulted plans to discuss possible need for debridement * blood cultures NGTD * pain management * bedside debridement 08/01/2025 * Amputation planned for today 08/02/2025 @ 14:00 * Cefazolin x 3 bags post op * Postop boot * WBAT/PT/OT evaluation * Wound/dressing Adaptic, 4 x 4, Kerlix and Coban to bedside (2) Cellulitis of toe of right foot: Code(s): L03.031 - Cellulitis of right toe Status: Acute Assessment and Plan: * see above (3) Renal failure: Qualifiers: Renal failure chronicity: unspecified chronicity Qualified Code(s): N19 - Unspecified kidney failure Code(s): N19 - Unspecified kidney failure Status: Acute Assessment and Plan: Baseline 1.2-1.5 Cr * Improved with IV lfuids * Encourage oral hydration * avoid nephrotoxics * ABX renally dose sa needed (4) Hypercalcemia: Code(s): E83.52 - Hypercalcemia Status: Acute Assessment and Plan: suspect due to dehydration/Infection * Improved with IV fluids * 10.3 today * LR 100ml/hr * trend (5) Type 2 diabetes mellitus with hyperglycemia, without long-term current use of insulin: Code(s): E11.65 - Type 2 diabetes mellitus with hyperglycemia Status: Acute Assessment and Plan: * accu checks ACHS * SSI low dose * Hypoglycemia protocol * hold home metformin, glipizide and Januvia * Diabetic diet Plan Code status: ?Full code per patient DVT prophylaxis: ?Anabella PT/OT notes: NA ? Disposition: ?Patient continues admission to the medical unit for further evaluation and treatment of diabetic ulceration to right great toe ortho was consulted for debridement but requires amputation completed on 08/03/2025. Patient would like to return home at discharge with HH. PT/OT evaluation pending. Medical Record Review I have reviewed the following patient records and this information was taken into consideration when formulating the assessment and plan.: previous labs, previous ER visits and previous hospitalizations Consultations Consultations: I have discussed the care of this pt with the consulting providers. Time Spent With Patient Time with patient: 15 - 25 minutes Subjective Date/time seen: 08/03/25 08:53 Interval history: 85-year-old male with a past medical history of essential hypertension and type 2 diabetes mellitus measures to oral medications with associated peripheral neuropathy who presented to the ER via private vehicle due to wound to his right great toe. Patient was admitted for further evaluation and treatment of infected right great toe. 08/03/2025: Review of Systems Review of Systems: 12 systems were reviewed with pertinent positives and negatives per HPI. Except as documented in the HPI, all other systems were reviewed and are negative. All systems reviewed & are unremarkable except as noted in HPI and below Exam Narrative: Weight 107.5 kg BMI 30.4 Const: General: comfortable and no acute distress Other: No acute distress, obese, appears stated age HENMT: Face/Nose/Sinus: Normal nares present Mouth: Yes moist mucous membranes Other: Mucous membranes are moist, no oral pharyngeal erythema Eyes: General: appearance normal, both eyes and all related structures Sclera: sclerae normal Other: Bilateral lens implants noted, positive conjunctival pallor, no scleral icterus Neck: Neck: supple Other: No JVD, no lymphadenopathy Resp: Effort & Inspection: normal respiratory effort Auscultation: clear to auscultation bilaterally Other: Clear to auscultation bilaterally, no increased work of breathing Cardio: Rate: regular rate Rhythm: regular rhythm Other: Regular rate, regular rhythm, 2+ bilateral radial pedal pulses GI: Auscultation: normal bowel sounds Other: Soft, nontender, nondistended, positive bowel sounds Skin: Other: erythema has improved to right ankle, foot and anterior mancini. wound to right great toe with swelling dressing place post debridment, poor cap refill and osterior tivial pulse absent Neuro: Speech: normal speech Motor exam (neuro): 5/5 motor strength present throughout Other: Alert oriented x4, speech is clear, no facial asymmetry no localizing neurologic deficits noted during the course of conversation, chronic paresthesias in stocking and glove distribution consistent with history of neuropathy Extrem: Other: 1+ edema RLE Psych: Mental Status: mental status grossly normal Affect: normal affect Other: Appropriate mood and affect, pleasant and cooperative, judgment and insight intact Objective Data Vital Signs Vital Signs: Vital Signs - 24 hr 08/02/25 09:13 08/02/25 13:22 08/02/25 14:00 Temperature 97.2 F L 97.9 F Pulse Rate 91 89 88 Respiratory Rate 20 16 Blood Pressure 130/72 135/79 Pulse Oximetry 97 95 Oxygen Delivery Room Air Oxygen Flow Rate 08/02/25 16:06 08/02/25 16:15 08/02/25 16:30 Temperature 97.4 F L Pulse Rate 77 84 83 Respiratory Rate 16 18 17 Blood Pressure 145/89 H 151/86 H Pulse Oximetry 100 100 98 Oxygen Delivery Simple Face Mask Simple Face Mask Room Air Oxygen Flow Rate 8 8 08/02/25 16:45 08/02/25 17:15 08/02/25 17:30 Temperature 97.9 F 97.1 F L 97.6 F Pulse Rate 79 79 83 Respiratory Rate 19 18 20 Blood Pressure 145/83 H 147/77 H 145/77 H Pulse Oximetry 96 94 95 Oxygen Delivery Room Air Oxygen Flow Rate 08/02/25 18:00 08/02/25 19:08 08/02/25 22:14 Temperature 96.2 F L 97.6 F Pulse Rate 80 93 94 Respiratory Rate 18 18 Blood Pressure 150/67 H 111/64 Pulse Oximetry 98 96 Oxygen Delivery Oxygen Flow Rate 08/02/25 22:15 08/02/25 22:42 08/03/25 02:42 Temperature 98.0 F 97.6 F Pulse Rate 89 82 Respiratory Rate 20 20 Blood Pressure 133/82 127/72 Pulse Oximetry 94 95 Oxygen Delivery Room Air Oxygen Flow Rate Intake/Output Intake/Output: Intake & Output 07/31/25 08/01/25 08/02/25 08/03/25 23:59 23:59 23:59 23:59 Intake Total 2232 860 258 50 Output Total 2760 800 300 300 Balance -528 60 -42 -250 Meds/Results Medications: Active Medications Generic Name Dose Route Start Last Admin Trade Name Freq PRN Reason Stop Dose Admin Acetaminophen 1,000 mg 07/27/25 12:26 07/27/25 12:41 Acetaminophen 500 Mg Tablet PO 1,000 mg Q6H PRN Administration Mild Pain (1-3) or Fever Hydrocodone Bitart/Acetaminophen 1 tab 08/02/25 16:57 08/03/25 08:48 Hydrocodone/Acetaminophen (*Crx) 5-325 Mg Tablet PO 1 tab Q3H PRN Administration Pain Rated 4-6 Carvedilol 3.125 mg 07/27/25 09:00 08/03/25 08:47 Carvedilol 3.125 Mg Tablet PO 3.125 mg Q12HR VELASQUEZ Administration Dextrose 12.5 gm 07/27/25 07:03 Dextrose 50% 25 Gm/50 Ml Syringe IV PUSH PRN PRN Hypoglycemia Protocol Duloxetine HCl 60 mg 07/27/25 09:00 08/03/25 08:48 Duloxetine Hcl 60 Mg Capsule.Dr PO 60 mg BID VELASQUEZ Administration Enoxaparin Sodium 40 mg 07/27/25 09:00 08/03/25 08:48 Enoxaparin 40 Mg/0.4 Ml Syringe SUB-Q 40 mg DAILY VELASQUEZ Administration Fentanyl Citrate 25 mcg 08/02/25 14:38 Fentanyl Citrate Inj (*Crx) 100 Mcg/2 Ml Vial IV PUSH Q2M PRN Pain Glucagon 1 mg 07/27/25 07:03 Glucagon For Inj 1 Mg Vial IM PRN PRN Hypoglycemia Protocol Glucose 15 gm 07/27/25 07:03 Glucose Oral Gel 15 Gm Of Glucse In 37.5 Gm Tube PO PRN PRN Hypoglycemia Protocol Dextrose 1,000 mls @ 100 mls/hr 07/27/25 07:03 Dextrose 5% 1,000 Ml IVPB PRN PRN Hypoglycemia Protocol Sodium Chloride 1,000 mls @ 75 mls/hr 08/02/25 16:57 08/03/25 08:44 Normal Saline Iv IV CONT Not Given .[id number] VELASQUEZ Cefazolin Sodium 1 gm/ Sodium 50 mls @ 100 mls/hr 08/02/25 23:00 08/03/25 06:07 Chloride IVPB 08/03/25 15:29 100 mls/hr Q8H VELASQUEZ Administration Lactated Ringer's 1,000 mls @ 100 mls/hr 08/03/25 08:55 Lr - Lactated Ringers Iv IV CONT .Q10H VELASQUEZ Insulin Aspart 3 - 6 units 07/27/25 08:00 08/03/25 08:46 Insulin Aspart (*Bkc) 100 Units/Ml SUB-Q 3 units TIDWM VELASQUEZ Administration Protocol Levofloxacin 750 mg 07/30/25 21:00 08/02/25 22:15 Levofloxacin 750 Mg Tablet PO 750 mg QHS VELASQUEZ Administration Metronidazole 500 mg 07/29/25 22:00 08/03/25 06:07 Metronidazole 500 Mg Tablet PO 500 mg Q8HR VELASQUEZ Administration Polyethylene Glycol 17 gm 08/03/25 09:00 08/03/25 08:48 Polyethylene Glycol 3350 17 Gm Powd.Pack PO 17 gm QAM VELASQUEZ Administration Senna/Docusate Sodium 2 tab 08/02/25 17:00 08/03/25 08:48 Senna/Docusate Sodium Tablet PO 2 tab BID VELASQUEZ Administration Radiology Results: ITS Impressions Foot X-Ray 07/26/25 19:47 IMPRESSION: 1. Diffuse soft tissue swelling of big toe noted. 2. No plain radiographic evidence of osteomyelitis. Osteoarthritis as mentioned above. Clinical suspicion of osteomyelitis is significant, additional evaluation with MRI or three-phase nuclear bone scan may be considered. Foot MRI 07/28/25 08:56 IMPRESSION: 1. No evidence of osteomyelitis. Labs Labs: Laboratory Results - last 24 hr 08/02/25 08/02/25 08/02/25 11:45 14:56 16:12 WBC RBC Hgb Hct MCV MCH MCHC RDW Plt Count MPV Sodium Potassium Chloride Carbon Dioxide Anion Gap BUN Creatinine Estim Creat Clear Calc Estimated GFR Glucose POC Capillary Glucose 278 H 208 H 210 H Calcium Magnesium Total Bilirubin AST ALT Alkaline Phosphatase Total Protein Albumin 08/02/25 08/03/25 08/03/25 19:50 04:53 08:16 WBC 9.5 RBC 3.77 L Hgb 10.4 L Hct 33.4 L MCV 88.6 MCH 27.6 MCHC 31.1 L RDW 13.3 Plt Count 300 MPV 10.2 Sodium 135 L Potassium 4.8 Chloride 103 Carbon Dioxide 29 Anion Gap 3 L BUN 25 H Creatinine 1.56 H Estim Creat Clear Calc 42 Estimated GFR 43 L Glucose 211 H POC Capillary Glucose 272 H 220 H Calcium 10.5 H Magnesium 1.7 Total Bilirubin 0.4 AST 27 ALT 21 Alkaline Phosphatase 91 Total Protein 6.2 L Albumin 3.0 L Attestation: I personally reviewed all lab results Quality VTE Prophylaxis VTE prophylaxis: pharmacologic ordered (Lovenox 40 mg subQ daily.) -Patient's previous records reviewed on admission -ER notes reviewed in detail on admission -discussed all findings and current treatment plan with patient/Family/POA -Consultations reviewed for recommendations -Patient's disposition for safe discharge discussed with watch caser -radiology imaging, EKG and test results I have personally reviewed and interpreted unless otherwise specified Dictation performed by [employer] direct speech recognition software, therefore front office specialist variants and typographical errors may occur. Hospitalist MIPS Advance Care Plan I have confirmed that the patient's Advanced Care Plan is present, code status is documented, or surrogate decision maker is listed in patient medical record.: Yes Medication Reconciliation I have utilized all available resources to obtain, update and review the patients current medications (includes all prescriptions, OTC, herbals, cannabi s, and nutritional supplements).: Yes The patient is not eligible for med reconciliation; the patient is in a emergent medical situation where delaying treatment would jeopardize the patients health.: No
[2025-08-03] MEDS: LACTATED RINGERS 1,000 ML 100 ML IV CONT (09:40)
--- NOTE | 2025-08-03 09:52 | P.PNOP_ITS ---
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 Dressing changed this morning. Wound stable. Ambulate with postop shoe. Weight bear as tolerated. Daily dressing change. May wash and shower. Okay for discharge from ortho standpoint. Home health nursing for dressing changes. Follow-up orthopedic office in 3 weeks. Subjective Subjective Date/Time Seen: 08/03/25 09:52 Post Op day: 1 Principal diagnosis: right hallux diabetic ulcer Interval history: postoperative day 1. Patient awake and up in chair. No problems overnight. Pain controlled. Exam Const: General: healthy appearing; No in distress or confusion Orientation/consciousness: oriented to person, oriented to place, oriented to time and No confusion HENMT: Head: normal to inspection, normocephalic and atraumatic Eyes: Conjunctivae: conjunctivae normal Sclera: sclerae normal Neck: Neck: supple and nontender Resp: Effort & Inspection: normal respiratory effort and no audible wheezes Cardio: Rhythm: regular rhythm Skin: General skin exam: no rashes or lesions noted Neuro: General: oriented to person, oriented to place, oriented to time and No confusion Extrem: Right upper extremity: normal to inspection Left upper extremity: normal to inspection Right lower extremity: ankle Details: normal to inspection, abnormal ROM Details: with range as follows (ankle dorsiflexion -10 degrees, plantar flexion 40?, inversion 15?, eversion 15?) and other ( good stability all directions); no tenderness, no swelling and no ecchymosis and foot Details: abnormal to inspection ( Right hallux amputation), abnormal ROM of toe ( hallux MTP dorsiflexion 40, plantar flexion 20?), vascular exam Details: abnormal capillary refill Location: of all toes; dorsalis pedis pulse absent, posterior tibial pulse absent and capillary refill abnormal, tendon exam Details: active flexion abnormal and active extension abnormal, motor-sensory exam Details: two point discrimination abnormal Location: in all toes and light- touch abnormal Location: in all toes and other ( hallux incision clean , mild sanguinous drainage on dressing. Skin edges viable. Minimal swelling and erythema foot. Lower leg erythema improved) Left lower extremity: ankle Details: normal to inspection and abnormal ROM Details: with range as follows (ankle dorsiflexion -10 degrees, plantar flexion 40?, inversion 15?, eversion 15?); no tenderness and no swelling and foot Details: normal capillary refill, abnormal ROM of toe, vascular exam Details: abnormal capillary refill Location: of all toes; dorsalis pedis pulse absent, posterior tivial pulse absent and capillary refill abnormal, tendon exam active flexion abnormal of the great toe and active extension abnormal of the great toe, motor-sensory exam two point discrimination abnormal and light-touch abnormal in all toes and other ( 5mm callus plantar hallux. No erythema or swelling); no tenderness and no crepitus Other: swelling, ecchymosis, erythema and pertinent drainage from the medial right hallux. Skin slough noted previously debrided yesterday. Purulent drainage from the medial aspect. 3 x 4 cm skin necrosis involving the plantar hallux with wound opening to bone and tendon. Psych: Affect: normal affect Objective Data Vital Signs Vital Signs: Vital Signs - 24 hr 08/02/25 13:22 08/02/25 14:00 08/02/25 16:06 Temperature 97.2 F L 97.9 F 97.4 F L Pulse Rate 89 88 77 Respiratory Rate 20 16 16 Blood Pressure 130/72 135/79 Pulse Oximetry 97 95 100 Oxygen Delivery Room Air Simple Face Mask Oxygen Flow Rate 8 08/02/25 16:15 08/02/25 16:30 08/02/25 16:45 Temperature 97.9 F Pulse Rate 84 83 79 Respiratory Rate 18 17 19 Blood Pressure 145/89 H 151/86 H 145/83 H Pulse Oximetry 100 98 96 Oxygen Delivery Simple Face Mask Room Air Room Air Oxygen Flow Rate 8 08/02/25 17:15 08/02/25 17:30 08/02/25 18:00 Temperature 97.1 F L 97.6 F 96.2 F L Pulse Rate 79 83 80 Respiratory Rate 18 20 18 Blood Pressure 147/77 H 145/77 H 150/67 H Pulse Oximetry 94 95 98 Oxygen Delivery Oxygen Flow Rate 08/02/25 19:08 08/02/25 22:14 08/02/25 22:15 Temperature 97.6 F Pulse Rate 93 94 Respiratory Rate 18 Blood Pressure 111/64 Pulse Oximetry 96 Oxygen Delivery Room Air Oxygen Flow Rate 08/02/25 22:42 08/03/25 02:42 08/03/25 07:00 Temperature 98.0 F 97.6 F 97.5 F L Pulse Rate 89 82 80 Respiratory Rate 20 20 20 Blood Pressure 133/82 127/72 143/68 H Pulse Oximetry 94 95 95 Oxygen Delivery Oxygen Flow Rate Intake/Output Intake/Output: Intake & Output 07/31/25 08/01/25 08/02/25 08/03/25 23:59 23:59 23:59 23:59 Intake Total 2232 860 258 290 Output Total 2760 800 300 300 Balance -528 60 -42 -10 Meds/Results Medications: Active Medications Generic Name Dose Route Start Last Admin Trade Name Freq PRN Reason Stop Dose Admin Acetaminophen 1,000 mg 07/27/25 12:26 07/27/25 12:41 Acetaminophen 500 Mg Tablet PO 1,000 mg Q6H PRN Administration Mild Pain (1-3) or Fever Hydrocodone Bitart/Acetaminophen 1 tab 08/02/25 16:57 08/03/25 08:48 Hydrocodone/Acetaminophen (*Crx) 5-325 Mg Tablet PO 1 tab Q3H PRN Administration Pain Rated 4-6 Carvedilol 3.125 mg 07/27/25 09:00 08/03/25 08:47 Carvedilol 3.125 Mg Tablet PO 3.125 mg Q12HR VELASQUEZ Administration Dextrose 12.5 gm 07/27/25 07:03 Dextrose 50% 25 Gm/50 Ml Syringe IV PUSH PRN PRN Hypoglycemia Protocol Duloxetine HCl 60 mg 07/27/25 09:00 08/03/25 08:48 Duloxetine Hcl 60 Mg Capsule.Dr PO 60 mg BID VELASQUEZ Administration Enoxaparin Sodium 40 mg 07/27/25 09:00 08/03/25 08:48 Enoxaparin 40 Mg/0.4 Ml Syringe SUB-Q 40 mg DAILY VELASQUEZ Administration Fentanyl Citrate 25 mcg 08/02/25 14:38 Fentanyl Citrate Inj (*Crx) 100 Mcg/2 Ml Vial IV PUSH Q2M PRN Pain Glucagon 1 mg 07/27/25 07:03 Glucagon For Inj 1 Mg Vial IM PRN PRN Hypoglycemia Protocol Glucose 15 gm 07/27/25 07:03 Glucose Oral Gel 15 Gm Of Glucse In 37.5 Gm Tube PO PRN PRN Hypoglycemia Protocol Dextrose 1,000 mls @ 100 mls/hr 07/27/25 07:03 Dextrose 5% 1,000 Ml IVPB PRN PRN Hypoglycemia Protocol Sodium Chloride 1,000 mls @ 75 mls/hr 08/02/25 16:57 08/03/25 08:44 Normal Saline Iv IV CONT Not Given .[id number] VELASQUEZ Cefazolin Sodium 1 gm/ Sodium 50 mls @ 100 mls/hr 08/02/25 23:00 08/03/25 06:07 Chloride IVPB 08/03/25 15:29 100 mls/hr Q8H VELASQUEZ Administration Lactated Ringer's 1,000 mls @ 100 mls/hr 08/03/25 08:55 08/03/25 09:40 Lr - Lactated Ringers Iv IV CONT 100 mls/hr .Q10H VELASQUEZ Administration Insulin Aspart 3 - 6 units 07/27/25 08:00 08/03/25 08:46 Insulin Aspart (*Bkc) 100 Units/Ml SUB-Q 3 units TIDWM VELASQUEZ Administration Protocol Levofloxacin 750 mg 07/30/25 21:00 08/02/25 22:15 Levofloxacin 750 Mg Tablet PO 750 mg QHS VELASQUEZ Administration Metronidazole 500 mg 07/29/25 22:00 08/03/25 06:07 Metronidazole 500 Mg Tablet PO 500 mg Q8HR VELASQUEZ Administration Polyethylene Glycol 17 gm 08/03/25 09:00 08/03/25 08:48 Polyethylene Glycol 3350 17 Gm Powd.Pack PO 17 gm QAM VELASQUEZ Administration Senna/Docusate Sodium 2 tab 08/02/25 17:00 08/03/25 08:48 Senna/Docusate Sodium Tablet PO 2 tab BID VELASQUEZ Administration Radiology Results: ITS Impressions Foot X-Ray 07/26/25 19:47 IMPRESSION: 1. Diffuse soft tissue swelling of big toe noted. 2. No plain radiographic evidence of osteomyelitis. Osteoarthritis as mentioned above. Clinical suspicion of osteomyelitis is significant, additional evaluation with MRI or three-phase nuclear bone scan may be considered. Foot MRI 07/28/25 08:56 IMPRESSION: 1. No evidence of osteomyelitis. Labs Labs: Laboratory Results - last 24 hr 08/02/25 08/02/25 08/02/25 11:45 14:56 16:12 WBC RBC Hgb Hct MCV MCH MCHC RDW Plt Count MPV Sodium Potassium Chloride Carbon Dioxide Anion Gap BUN Creatinine Estim Creat Clear Calc Estimated GFR Glucose POC Capillary Glucose 278 H 208 H 210 H Calcium Magnesium Total Bilirubin AST ALT Alkaline Phosphatase Total Protein Albumin 08/02/25 08/03/25 08/03/25 19:50 04:53 08:16 WBC 9.5 RBC 3.77 L Hgb 10.4 L Hct 33.4 L MCV 88.6 MCH 27.6 MCHC 31.1 L RDW 13.3 Plt Count 300 MPV 10.2 Sodium 135 L Potassium 4.8 Chloride 103 Carbon Dioxide 29 Anion Gap 3 L BUN 25 H Creatinine 1.56 H Estim Creat Clear Calc 42 Estimated GFR 43 L Glucose 211 H POC Capillary Glucose 272 H 220 H Calcium 10.5 H Magnesium 1.7 Total Bilirubin 0.4 AST 27 ALT 21 Alkaline Phosphatase 91 Total Protein 6.2 L Albumin 3.0 L
[2025-08-03 10:42] VITALS: BP 129/58; PULSE 93; RESP 16; TEMP 36.6; O2SAT 95
--- NOTE | 2025-08-03 12:13 | P.DS_ITS ---
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 Code(s): E11.621 - Type 2 diabetes mellitus with foot ulcer; L97.509 - Non-pressure chronic ulcer of other part of unspecified foot with unspecified severity Status: Acute (2) Cellulitis of toe of right foot: Code(s): L03.031 - Cellulitis of right toe Status: Acute (3) Renal failure: Qualifiers: Renal failure chronicity: unspecified chronicity Qualified Code(s): N19 - Unspecified kidney failure Code(s): N19 - Unspecified kidney failure Status: Acute (4) Hypercalcemia: Code(s): E83.52 - Hypercalcemia Status: Acute (5) Type 2 diabetes mellitus with hyperglycemia, without long-term current use of insulin: Code(s): E11.65 - Type 2 diabetes mellitus with hyperglycemia Status: Acute (6) Amputation of right great toe: Code(s): S98.111A - Complete traumatic amputation of right great toe, initial encounter Status: Acute DS: Summary Hospital Course Reason for hospitalization: Diabetic foot ulcer Right great toe Hospital Course: The patient presented with an infected diabetic ulcer of the plantar surface of the right great toe with surrounding cellulitis and necrosis. Initial evaluation demonstrated elevated inflammatory markers and acute kidney injury. Imaging, including X?ray and MRI of the right foot, showed?no evidence of osteomyelitis. Broad?spectrum IV antibiotics (vancomycin, cefepime, metronidazole) were initiated and later transitioned to?oral levofloxacin and metronidazole?based on clinical improvement and culture results (Staphylococcus species and Morganella). Blood cultures showed no growth. The patient underwent?bedside debridement on 08/01/2025?followed by?right hallux amputation on 08/02/2025. Postoperatively, the wound remained stable with improving erythema and minimal drainage. Renal function and calcium levels improved with IV fluids. Pain was well controlled. The patient was deemed stable for discharge home with home health services. Patient continued on oral ABX therapy, WBAT with post-op boot and home health services at discharge. Evaluated by PT/OT who also recommended HH. Patient with no complaints or acute distress at time of discharge will follow-up with surgery in 2 weeks. Status at Discharge Functional status at discharge: uses cane/walker Overall status at discharge: patient is progressing back to baseline Time Spent with Patient Time attestation: Total time spent providing and/or coordinating discharge services: Time spent: Greater than 30 minutes Exam Narrative: Weight 107.5 kg BMI 30.4 Const: Other: No acute distress, obese, appears stated age HENMT: Other: Mucous membranes are moist, no oral pharyngeal erythema Eyes: Other: Bilateral lens implants noted, positive conjunctival pallor, no scleral icterus Neck: Other: No JVD, no lymphadenopathy Resp: Other: Clear to auscultation bilaterally, no increased work of breathing Cardio: Other: Regular rate, regular rhythm, 2+ bilateral radial pedal pulses GI: Other: Soft, nontender, nondistended, positive bowel sounds Skin: Other: erythema has improved to right ankle, foot and anterior mancini. post surgical incision drressing in place with minimal drainage post Right great toe amputation Neuro: Other: Alert oriented x4, speech is clear, no facial asymmetry no localizing neurologic deficits noted during the course of conversation, chronic paresthesias in stocking and glove distribution consistent with history of neuropathy Extrem: Other: 1+ edema RLE Psych: Other: Appropriate mood and affect, pleasant and cooperative, judgment and insight intact DS: Data Data Completed and Pending Pending studies at discharge: Pending at discharge 08/02/25 15:42 Surgical [PTH] Routine Labs on day of discharge: Labs from last 24 hours 08/03/25 08/03/25 08/03/25 11:24 08:16 04:53 WBC 9.5 RBC 3.77 L Hgb 10.4 L Hct 33.4 L MCV 88.6 MCH 27.6 MCHC 31.1 L RDW 13.3 Plt Count 300 MPV 10.2 Sodium 135 L Potassium 4.8 Chloride 103 Carbon Dioxide 29 Anion Gap 3 L BUN 25 H Creatinine 1.56 H Estim Creat Clear Calc 42 Estimated GFR 43 L Glucose 211 H POC Capillary Glucose 277 H 220 H Calcium 10.5 H Magnesium 1.7 Total Bilirubin 0.4 AST 27 ALT 21 Alkaline Phosphatase 91 Total Protein 6.2 L Albumin 3.0 L 08/02/25 08/02/25 08/02/25 19:50 16:12 14:56 WBC RBC Hgb Hct MCV MCH MCHC RDW Plt Count MPV Sodium Potassium Chloride Carbon Dioxide Anion Gap BUN Creatinine Estim Creat Clear Calc Estimated GFR Glucose POC Capillary Glucose 272 H 210 H 208 H Calcium Magnesium Total Bilirubin AST ALT Alkaline Phosphatase Total Protein Albumin Discharge Plan Discharge Attending physician on discharge: Marquis Elkins Consulting providers: Tita Baca; Jim Ruelas; Lizbeth Peraza; Lalitha Beckford; Aisha Junior; Umang Talley; Marcell Orozco; Alessio Delarosa V.; Pat Rodriguez Discharging Clinician: Tita Baca Anticipated Discharge Date/Time: 08/03/25 12:15 Patient Disposition: Home with Home Health Service Activity: may shower Wound Care Instructions: keep dressing dry, remove dressing to shower, change dressing daily and other - see discharge instructions Discharge Instructions: LIZBETH PERAZA M.D. [facility] [address] [facility] [address] [place] [address] POST OPERATIVE DISCHARGE INSTRUCTIONS FOOT/ANKLE SURGERY * For the first 48 hours, make sure that the foot is above the level of your heart * If the dressing is uncomfortable or tight, call the Dr?s office. * Keep the dressing clean and dry. Remove dressing to shower/ wash. Use postoperative shoe when up. * If the pain medication does not provide adequate relief, please call Dr?s office. * Take other medication as prescribed. * Please call Dr?s office to confirm follow-up appointment for 3 weeks. * If you have any questions, please call the Dr?s office. * Diet as tolerated. * Activity:____X____Restrictions as follows: weight bear as tolerated with postoperative shoe; crutches or walker for ambulation * Do not drive for 24 hours, unless otherwise instructed. * Additional instructions: Discharge: * Home health services to assist with dressing changes * Follow-up in Dr. Peraza office in 3 weeks Patient Instructions: Antibiotic Form, Toe Amputation (DC) Patient Language: Portuguese Stand Alone Forms: General Discharge Information Follow-up/Referrals: Lizbeth Peraza MD [Physician, Orthopedics] Referral Note: 3 weeks. Call office to verify appointment Discharge Medications: New hydrocodone-acetaminophen 5-325 mg Tablet 1 tablet PO Q6-8H PRN (Reason: Pain Rated 4-6) Qty: 15 0RF levofloxacin 750 mg tablet 750 mg PO DAILY Qty: 10 0RF metronidazole 500 mg Tablet 500 mg PO Q8HR Qty: 28 0RF Continued glipizide 10 mg tablet 10 mg PO BID carvedilol 3.125 mg tablet 3.125 mg PO BID metformin 1,000 mg tablet 1,000 mg PO BID lisinopril 10 mg tablet 10 mg PO BID duloxetine 60 mg capsule,delayed release(DR/EC) 60 mg PO BID Januvia 100 mg tablet 100 mg PO DAILY Ozempic 0.25 mg or 0.5 mg (2 mg/3 mL) pen injector 0.25 mg SUBCUT WEEKLY Patient Comments: Tuesday Date of admission: 07/26/25 21:37 Primary Care Provider: Tong Douglass Admitting Provider: Tatyana Taylor Attending physician on admission: Marquis Elkins Condition: Stable Quality VTE Prophylaxis VTE prophylaxis: pharmacologic ordered (Lovenox 40 mg subQ daily.) - Patient's previous records reviewed on admission -ER notes reviewed in detail on admission -discussed all findings and current treatment plan with patient/Family/POA -Consultations reviewed for recommendations -Patient's disposition for safe discharge discussed with assistant case manager -radiology imaging, EKG and test results I have personally reviewed and interpreted unless otherwise specified Dictation performed by [employer] direct speech recognition software, therefore crime analyst variants and typographical errors may occur. Hospitalist MIPS Heart Failure (Exclusion) Patient has history of Heart Transplant or Left Ventricular Assistive Device?: No IF YES, STOP HERE Heart Failure (Qualifier) Patient has current or prior documentation of LVEF less than or equal to 40%, or mod/servere depressed LVSF?: No IF NO, STOP HERE
== END 2025-08-03 17:20 | disposition home health service (06) | DRG 617 ==
LOC: ANHED 19:55 → ANH3MEDSUR 23:20
PROVIDERS: Nurse Practitioner Adult Health; Nurse Practitioner Family; Orthopaedic Surgery; Admitting Provider Internal Medicine; Emergency Provider Student in an Organized Health Care Education/Training Program; PCP Internal Medicine; Visit Provider Internal Medicine
PROC: 0Y6P0Z1 Detachment at Right 1st Toe, High, Open Approach (ICD-10-PCS; principal; 2025-08-02 15:30)
DX: E11.621 Type 2 diabetes mellitus with foot ulcer (principal); E87.1 Hypo-osmolality and hyponatremia; L97.513 Non-pressure chronic ulcer of other part of right foot with necrosis of muscle; L03.031 Cellulitis of right toe; B96.89 Other specified bacterial agents as the cause of diseases classified elsewhere; B95.1 Streptococcus, group B, as the cause of diseases classified elsewhere; N17.9 Acute kidney failure, unspecified; E83.52 Hypercalcemia; E11.65 Type 2 diabetes mellitus with hyperglycemia; D64.9 Anemia, unspecified; E86.0 Dehydration; E11.42 Type 2 diabetes mellitus with diabetic polyneuropathy; I73.9 Peripheral vascular disease, unspecified
CPT/HCPCS: 36415; 73630; 73720; 80053; 80202; 82565; 82607; 82728; 82746; 82948; 83036; 83540; 83550; 83605; 83735; 85025; 85027; 85652; 86140; 87040; 87070; 87075; 87186; 88305; 88311; 93005; 96361; 96365; 97110; 97161; 97166; 97168; 97530; 97535; 99285; J0690; A9270; A9577; J0692; J1650; J1815; J1836; J2003; J2405; J2543; J2704; J3373; J7030; J7120